=== PATIENT | female | born 1975 | race Caucasian/White ===

== ENCOUNTER 2017-10-28 15:43 | Emergency (ER) | payer BC ==
[2017-10-28] MEDS ORDERED: KETOROLAC 60 MG/2 ML VIAL IM STA (16:33)
--- NOTE | 2017-10-28 17:19 | XR ---
EXAMINATION TYPE: XR pelvis AP view DATE OF EXAM: 10/28/2017 COMPARISON: NONE HISTORY: None TECHNIQUE: Single view FINDINGS: Pelvic ring is intact. Proximal femurs and hip joints are intact. Sacroiliac joints appear normal. IMPRESSION: Negative pelvis x-ray exam.
--- NOTE | 2017-10-28 17:21 | XR ---
EXAMINATION TYPE: XR lumbosacral spine min 4V DATE OF EXAM: 10/28/2017 COMPARISON: NONE HISTORY: Leg pain and back pain TECHNIQUE: 5 views FINDINGS: The vertebra have fairly normal alignment. There is narrowing of L4-5 L5-S1 disc spaces wit h mild spurring. Posterior elements are intact. There is no compression fracture. Sacroiliac joints a re normal. There is mild narrowing of L2-3 disc space with spurring IMPRESSION: Spondylotic changes. No fracture seen.
--- NOTE | 2017-10-28 18:23 | ED ---
Lower Extremity Injury HPI - General Chief Complaint: Extremity Injury, Lower Stated Complaint: Leg Pain Time Seen by Provider: 10/28/17 16:13 Source: patient, RN notes reviewed Mode of arrival: ambulatory Limitations: no limitations - History of Present Illness Initial Comments: This is a 42-year-old female who states she has had left-sided hip pain for quite a while she states goes through her thigh she states she fell about one half weeks ago states the pain is 8/10 so a burning in nature no deficits however no trouble with urination or bowel movements. She was started on some oral steroids she'll briefly but she ran out of the medication. She has any fevers chills or other symptoms no prior history of sciatica or low back problems. - Related Data Home Medications Medication Instructions Recorded Confirmed ARIPiprazole [Abilify] 20 mg PO HS 10/28/17 10/28/17 Benztropine Mesylate [Cogentin] 0.5 mg PO BID 10/28/17 10/28/17 FLUoxetine HCL [PROzac] 20 mg PO HS 10/28/17 10/28/17 Prozac(Unknown) 1 cap PO HS 10/28/17 10/28/17 buPROPion [Wellbutrin] 100 mg PO BID 10/28/17 10/28/17 Previous Rx's Medication Instructions Recorded Cyclobenzaprine [Flexeril] 10 mg PO TID #14 tab 10/28/17 Ibuprofen 800 mg PO Q6HR PRN #20 tablet 10/28/17 predniSONE 20 mg PO BID #10 tab 10/28/17 Allergies Allergy/AdvReac Type Severity Reaction Status Date / Time No Known Allergies Allergy Verified 10/28/17 16:23 Review of Systems ROS Statement: Those systems with pertinent positive or pertinent negative responses have been documented in the HPI. ROS Other: All systems not noted in ROS Statement are negative. Past Medical History Past Medical History: GERD/Reflux History of Any Multi-Drug Resistant Organisms: MRSA Date of last positivie culture/infection: 2016 Past Surgical History: Cholecystectomy Past Psychological History: Bipolar, Schizoaffective Disorder Smoking Status: Former smoker Past Alcohol Use History: Rare Past Drug Use History: None Reported General Exam - General Exam Comments Initial Comments: This is a well-developed well-nourished awake alert oriented 3 female she does demonstrate a morbid obesity habitus. Limitations: no limitations General appearance: alert, anxious Head exam: Present: atraumatic, normocephalic, normal inspection Eye exam: Present: normal appearance, PERRL, EOMI. Absent: scleral icterus, conjunctival injection, periorbital swelling ENT exam: Present: normal exam, mucous membranes moist Neck exam: Present: normal inspection. Absent: tenderness, meningismus, lymphadenopathy Respiratory exam: Present: normal lung sounds bilaterally. Absent: respiratory distress, wheezes, rales, rhonchi, stridor Cardiovascular Exam: Present: regular rate, normal rhythm, normal heart sounds. Absent: systolic murmur, diastolic murmur, rubs, gallop, clicks GI/Abdominal exam: Present: other (Obese abdomen) Extremities exam: Present: normal inspection, full ROM, normal capillary refill , other (Tenderness palpation over the left gluteus consistent with sciatica). Absent: tenderness, pedal edema, joint swelling, calf tenderness Back exam: Present: normal inspection, full ROM. Absent: tenderness, CVA tenderness (R), CVA tenderness (L), muscle spasm, vertebral tenderness Neurological exam: Present: alert, oriented X3, CN II-XII intact Psychiatric exam: Present: normal affect, normal mood Skin exam: Present: warm, dry, intact, normal color. Absent: rash Course Vital Signs 10/28/17 15:55 Temperature 98.3 F Pulse Rate 75 Respiratory 20 Rate Blood Pressure 139/90 O2 Sat by Pulse 98 Oximetry Medical Decision Making - Medical Decision Making Improvement in her pain after the Toradol shot. I did discuss the findings with her and did review the imaging no acute findings are seen. Patient be discharged on appropriate medication with follow-up with her doctor. - Radiology Data Radiology results: report reviewed (Some evidence of degenerative changes), image reviewed Disposition Clinical Impression: Sciatica of left side Disposition: HOME SELF-CARE Condition: Good Instructions: Sciatica (ED) Prescriptions: Cyclobenzaprine [Flexeril] 10 mg PO TID #14 tab Ibuprofen 800 mg PO Q6HR PRN #20 tablet PRN Reason: Pain predniSONE 20 mg PO BID #10 tab Is patient prescribed a controlled substance at d/c from ED?: No Referrals: Daphne Bustamante, [Primary Care Provider] - 1-2 days
[2017-10-28 18:55] VITALS: BP 134/87; PULSE 76; RESP 18; TEMP 97.8
== END 2017-10-28 18:55 | disposition home or self-care (01) ==
LOC: EC 15:43
DX: M47.27 Other spondylosis with radiculopathy, lumbosacral region (principal); E66.01 Morbid (severe) obesity due to excess calories; F31.9 Bipolar disorder, unspecified; Z87.891 Personal history of nicotine dependence; Z79.899 Other long term (current) drug therapy; Z86.14 Personal history of Methicillin resistant Staphylococcus aureus infection; Z68.43 Body mass index [BMI] 50.0-59.9, adult
CPT/HCPCS: 96372; 99283; 72110; 72170; J1885

== ENCOUNTER 2018-09-18 06:59 | Emergency (ER) | payer BC ==
[2018-09-18 07:07] VITALS: BP 126/82; PULSE 88; RESP 20; TEMP 98.5
[2018-09-18] MEDS ORDERED: KETOROLAC 60 MG/2 ML VIAL IM STA (07:17)
--- NOTE | 2018-09-18 07:18 | ED ---
Back Pain HPI - General Chief Complaint: Back Pain/Injury Stated Complaint: Back Pain Time Seen by Provider: 09/18/18 07:08 Source: patient, RN notes reviewed Limitations: no limitations - History of Present Illness Initial Comments: This a 43-year-old female presents emergency Department with chief complaint of low back pain. Patient states she's been sore for last couple days but states that she worsen with spasms in her low back driving to work today. She denies any bowel bladder incontinence or retention. Denies any abdominal pain. Patient only took Tylenol with some relief of the pain. Patient states that she cannot go to work today. Patient has no complaint abdominal pain including nausea vomiting diarrhea constipation no paresthesias of lower extremity no w eakness no difficulty ambulate in pain is better at rest. - Related Data Home Medications Medication Instructions Recorded Confirmed ARIPiprazole [Abilify] 20 mg PO HS 10/28/17 10/28/17 Benztropine Mesylate [Cogentin] 0.5 mg PO BID 10/28/17 10/28/17 FLUoxetine HCL [PROzac] 20 mg PO HS 10/28/17 10/28/17 buPROPion [Wellbutrin] 100 mg PO BID 10/28/17 10/28/17 Previous Rx's Medication Instructions Recorded Cyclobenzaprine [Flexeril] 10 mg PO TID #14 tab 10/28/17 Ibuprofen 800 mg PO Q6HR PRN #20 tablet 10/28/17 predniSONE 20 mg PO BID #10 tab 10/28/17 Cyclobenzaprine [Flexeril] 10 mg PO TID PRN #15 tab 09/18/18 Ibuprofen [Motrin] 600 mg PO Q8HR PRN #30 tab 09/18/18 Allergies Allergy/AdvReac Type Severity Reaction Status Date / Time No Known Allergies Allergy Verified 09/18/18 07:07 Review of Systems ROS Statement: Those systems with pertinent positive or pertinent negative responses have been documented in the HPI. ROS Other: All systems not noted in ROS Statement are negative. Past Medical History Past Medical History: GERD/Reflux History of Any Multi-Drug Resistant Organisms: MRSA Date of last positivie culture/infection: 2016 MDRO Source:: groin Past Surgical History: Cholecystectomy Past Psychological History: Bipolar, Schizoaffective Disorder Smoking Status: Former smoker Past Alcohol Use History: Rare Past Drug Use History: None Reported General Exam Limitations: no limitations General appearance: alert, in no apparent distress Head exam: Present: atraumatic, normocephalic, normal inspection Neck exam: Present: normal inspection, full ROM. Absent: tenderness, meningismus, lymphadenopathy Respiratory exam: Present: normal lung sounds bilaterally. Absent: respiratory distress, wheezes, rales, rhonchi, stridor Cardiovascular Exam: Present: regular rate, normal rhythm, normal heart sounds. Absent: systolic murmur, diastolic murmur, rubs, gallop, clicks GI/Abdominal exam: Present: soft, normal bowel sounds. Absent: distended, tenderness, guarding, rebound, rigid Extremities exam: Present: other (Lower extremity strength equal bilaterally, neurovascular intact equal pedal pulses) Back exam: Present: full ROM, tenderness, paraspinal tenderness, other (Straight leg raise painful on the right). Absent: vertebral tenderness Neurological exam: Present: alert, oriented X3, CN II-XII intact, reflexes normal. Absent: motor sensory deficit Skin exam: Present: warm, dry, intact, normal color. Absent: rash Course Vital Signs 09/18/18 07:02 Temperature 98.5 F Pulse Rate 88 Respiratory 20 Rate Blood Pressure 126/82 O2 Sat by Pulse 97 Oximetry Medical Decision Making - Medical Decision Making 43-year-old female presented for low back pain. Patient has no red flag symptoms. Patient has typical lumbar strain. She'll be treated conservatively with ibuprofen and Flexeril. Patient was given Toradol return parameters were discussed. Disposition Clinical Impression: Strain of lumbar region Disposition: HOME SELF-CARE Condition: Stable Instructions (If sedation given, give patient instructions): Acute Low Back Pain (ED) Additional Instructions: Please return to the Emergency Department if symptoms worsen or any other concerns. Prescriptions: Cyclobenzaprine [Flexeril] 10 mg PO TID PRN #15 tab PRN Reason: Muscle Spasm Ibuprofen [Motrin] 600 mg PO Q8HR PRN #30 tab PRN Reason: Pain Is patient prescribed a controlled substance at d/c from ED?: No Referrals: None,Stated [Primary Care Provider] - 1-2 days Time of Disposition: 07:18
== END 2018-09-18 07:43 | disposition home or self-care (01) ==
LOC: EC 06:59
DX: S39.012A Strain of muscle, fascia and tendon of lower back, initial encounter (principal); F25.0 Schizoaffective disorder, bipolar type; Z79.899 Other long term (current) drug therapy; Z87.891 Personal history of nicotine dependence; X50.9XXA Other and unspecified overexertion or strenuous movements or postures, initial encounter
CPT/HCPCS: 99283; 96372; J1885

== ENCOUNTER → 2018-10-26 | Outpatient (CLI) | payer BC ==
--- NOTE | 2018-10-27 13:55 | MM ---
Reason for exam: screening (asymptomatic). History: Patient is nulliparous. Family history of breast cancer in paternal grandmother. Physical Findings: A clinical breast exam by your physician is recommended on an annual basis and results should be correlated with mammographic findings. MG Screening Mammo w CAD Bilateral CC and MLO view(s) were taken. No prior studies available for comparison. There are scattered fibroglandular densities. No suspicious abnormality. ASSESSMENT: Negative, BI-RAD 1 RECOMMENDATION: Routine screening mammogram of both breasts in 1 year.
== END | disposition home or self-care (01) ==
LOC: RADMAMWWP 08:58
PROVIDERS: ATTEND Family Medicine
DX: Z12.31 Encounter for screening mammogram for malignant neoplasm of breast (principal)
CPT/HCPCS: 77067

== ENCOUNTER 2019-09-27 12:04 | Observation (INO) | payer BC, OTHER ==
[2019-09-27 13:01] LABS: Basophils % (A) 0 %; Eosinophils # (A) 0.1 k/uL (0-0.7); Eosinophils % (A) 2 %; HCT 35.8 % (34.0-46.0); HGB 11.5 gm/dL (11.4-16.0); Lymphocytes # (A) 0.3 k/uL (1.0-4.8); Lymphocytes % (A) 4 %; MCH 26.1 pg (25.0-35.0); MCHC 32.1 g/dL (31.0-37.0); MCV 81.5 fL (80.0-100.0); Mean Platelet Volume 6.8; Monocytes # (A) 0.1 k/uL (0-1.0); Monocytes % (A) 2 %; Neutrophils # (A) 6.2 k/uL (1.3-7.7); Neutrophils % (A) 92 %; Platelet Count 251 k/uL (150-450); RDW 14.8 % (11.5-15.5); WBC 6.8 k/uL (3.8-10.6)
--- NOTE | 2019-09-27 13:15 | ED ---
Chest Pain HPI - General Chief Complaint: Chest Pain Stated Complaint: chest pain Time Seen by Provider: 09/27/19 12:13 Source: patient, RN notes reviewed, old records reviewed Mode of arrival: ambulatory Limitations: no limitations - History of Present Illness Initial Comments: This is a 44-year-old female DF for evaluation patient Dese for evaluation regards to chest pain. Patient is having chest pain shortness of breath like she has pneumonia. 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 Patient has also felt some chills and fevers for a few days. No recent travel history. Patient has no significant medical history she has pneumonia before this does feel similar to that MD Complaint: chest pain, other (Tightness while breathing) -: days(s) Onset: during rest, during exertion Pain Location: substernal, left chest Pain Radiation: none Severity: mild Quality: tightness Consistency: constant Improves With: nothing Worsens With: nothing Context: recent illness Anginal Symptoms: dyspnea Other Symptoms: cough Treatments Prior to Arrival: none - Related Data Home Medications Medication Instructions Recorded Confirmed ARIPiprazole [Abilify] 20 mg PO HS 10/28/17 09/27/19 Benztropine Mesylate [Cogentin] 0.5 mg PO HS 10/28/17 09/27/19 FLUoxetine HCL [PROzac] 20 mg PO HS 10/28/17 09/27/19 Omeprazole [PriLOSEC] 20 mg PO DAILY 09/18/18 09/27/19 Ergocalciferol (Vitamin D2) 50,000 unit PO MO 09/27/19 09/27/19 [Drisdol] buPROPion XL [Wellbutrin Xl] 300 mg PO DAILY 09/27/19 09/27/19 Allergies Allergy/AdvReac Type Severity Reaction Status Date / Time No Known Allergies Allergy Verified 09/27/19 14:52 Review of Systems ROS Statement: Those systems with pertinent positive or pertinent negative responses have been documented in the HPI. ROS Other: All systems not noted in ROS Statement are negative. EKG Findings - EKG Comments: EKG Findings:: EKG is sinus rhythm 91, WI 170 QRS 84 QTc 462 Past Medical History Past Medical History: GERD/Reflux, Pneumonia History of Any Multi-Drug Resistant Organisms: MRSA Date of last positivie culture/infection: 2017 MDRO Source:: groin Past Surgical History: Cholecystectomy Past Psychological History: Bipolar, Schizoaffective Disorder Smoking Status: Former smoker Past Alcohol Use History: Occasional, Rare Past Drug Use History: None Reported General Exam Limitations: no limitations General appearance: alert, in no apparent distress Head exam: Present: atraumatic, normocephalic, normal inspection Eye exam: Present: normal appearance, PERRL, EOMI. Absent: scleral icterus, conjunctival injection, periorbital swelling ENT exam: Present: normal exam, mucous membranes moist Neck exam: Present: normal inspection. Absent: tenderness, meningismus, lymphadenopathy Respiratory exam: Present: normal lung sounds bilaterally. Absent: respiratory distress, wheezes, rales, rhonchi, stridor Cardiovascular Exam: Present: regular rate, normal rhythm, normal heart sounds. Absent: systolic murmur, diastolic murmur, rubs, gallop, clicks GI/Abdominal exam: Present: soft, normal bowel sounds. Absent: distended, tenderness, guarding, rebound, rigid Extremities exam: Present: normal inspection, full ROM, normal capillary refill. Absent: tenderness, pedal edema, joint swelling, calf tenderness Back exam: Present: normal inspection Neurological exam: Present: alert, oriented X3, CN II-XII intact Psychiatric exam: Present: normal affect, normal mood Skin exam: Present: warm, dry, intact, normal color. Absent: rash Course Vital Signs 09/27/19 09/27/19 09/27/19 12:06 12:36 12:41 Temperature 98.4 F Pulse Rate 68 87 Pulse Rate [ 90 Pulse Oximetery ] Respiratory 18 20 20 Rate Blood Pressure 132/80 131/77 O2 Sat by Pulse 98 98 Oximetry 09/27/19 09/27/19 13:00 14:00 Temperature Pulse Rate 86 86 Pulse Rate [ Pulse Oximetery ] Respiratory 27 H 22 Rate Blood Pressure 131/77 141/74 O2 Sat by Pulse 100 99 Oximetry - Reevaluation(s) Reevaluation #1: 09/27/19 15:30 Medical records reviewed Reevaluation #2: 09/27/19 15:30 Patient informed of symptoms and questions are answered - Consultations Consultation #1: Spoke with PMH were agreed to admit Chest Pain MDM - MDM 44 female DF for evaluation patient is evaluation of shortness of breath and pneumonia patient does appear to have pneumonia, patient will be admitted rule out covert and treatment for pneumonia Disposition Clinical Impression: Chest pain, Community acquired bacterial pneumonia Narrative: roCOVID Disposition: ADMITTED IP TO THIS HOSP Condition: Good Is patient prescribed a controlled substance at d/c from ED?: No Referrals: Scarlet Sun MD [Primary Care Provider] - 1-2 days
--- NOTE | 2019-09-27 13:16 | XR ---
EXAMINATION TYPE: XR chest 2V DATE OF EXAM: 09/27/2019 COMPARISON: NONE HISTORY: Chest pain TECHNIQUE: Frontal and lateral views of the chest are obtained. FINDINGS: Question some retrocardiac increased attenuation. There is no pleural effusion or pneumotho rax seen. The cardiac silhouette size is within normal limits. The osseous structures are intact. IMPRESSION: Difficult to exclude left lower lobe pneumonia, correlate.
[2019-09-27 13:24] LABS: ALT 24 U/L (4-34); AST 47 U/L (14-36); African American GFR (CKD) >90 (>60 ml/min/1.73 sqM); Albumin 3.4 g/dL (3.5-5.0); Alkaline Phosphatase 113 U/L (38-126); Anion Gap 7 mmol/L; Blood Urea Nitrogen 11 mg/dL (7-17); Calcium 8.2 mg/dL (8.4-10.2); Carbon Dioxide 21 mmol/L (22-30); Chloride 108 mmol/L (98-107); Creatine Kinase 49 U/L (30-135); Glucose 102 mg/dL (74-99); Magnesium 1.9 mg/dL (1.6-2.3); Non-African American GFR(CKD) >90 (>60 ml/min/1.73 sqM); Potassium 3.8 mmol/L (3.5-5.1); Sodium 136 mmol/L (137-145); Total Bilirubin 0.9 mg/dL (0.2-1.3)
[2019-09-27 14:06] LABS: INR 0.9 (<1.2); Partial Thromboplastin Time 23.6 sec (22.0-30.0); Prothrombin Time 9.9 sec (9.0-12.0)
[2019-09-27 14:41] LABS: C Reactive Protein 45.2 mg/L (<10.0)
[2019-09-27] MEDS ORDERED: IPRATROPIUM-ALBUTEROL 3 ML NEB INHALATION PRN (15:28)
[2019-09-27] MEDS ORDERED: AZITHROMYCIN 500 MG in SODIUM CHLORIDE 0.9% 250 ML IVPB STA (15:28)
[2019-09-27] MEDS ORDERED: PNEUMONIA PROTOCOL UTILIZED 1 EACH MISC PO PRN (15:28)
[2019-09-27] MEDS: SODIUM CHLORIDE 0.9% 1,000 ML IV SCH (16:08)
[2019-09-27] MEDS ORDERED: ERGOCALCIFEROL 50,000 UNIT CAP PO SCH (19:00)
[2019-09-27] MEDS: HEPARIN SODIUM,PORCINE 5,000 UNIT/ML 1 ML VIAL SQ SCH (21:06)
[2019-09-27] MEDS: BENZTROPINE MESYLATE 0.5 MG TAB PO SCH (21:06)
[2019-09-27] MEDS: FLUoxetine HCL 20 MG CAP PO SCH (21:06)
[2019-09-27] MEDS: FAMOTIDINE 20 MG/2 ML VIAL IV SCH (21:06)
--- NOTE | 2019-09-27 21:19 | CT ---
EXAMINATION TYPE: CT angio chest DATE OF EXAM: 09/27/2019 COMPARISON: Chest x-ray earlier today HISTORY: elevated d-dimer CT DLP: 859.9 mGycm. Automated Exposure Control for Dose Reduction was Utilized. CONTRAST: CTA scan of the thorax is performed with IV Contrast, patient injected with 88cc mL of Isovue 370, pu lmonary embolism protocol. MIP Images are created on CT scanner and reviewed. FINDINGS: LUNGS: Low lung volumes redemonstrated. The lungs are grossly clear, there is no concerning parenchym al mass identified. Suboptimal study as patient unable to hold breath with respiratory motion artifac t degradation limiting evaluation for subcentimeter nodules. There is no pleural effusion or pneumoth orax seen bilaterally. The tracheobronchial tree is patent. MEDIASTINUM: There is suboptimal bolus with most dense contrast in the SVC and poor opacification of pulmonary arteries. No large saddle central pulmonary embolism, cannot exclude smaller segmental and subsegmental PE . Improved opacification of aorta without aneurysm or dissection. There are no greate r than 1 cm hilar or mediastinal lymph nodes. No cardiomegaly or pericardial effusion is seen. OTHER: Visualized liver is hypodense suggesting diffuse fatty infiltration. Cholecystectomy clips not ed. Mild to moderate multilevel anterior and lateral spurring in the thoracic spine. IMPRESSION: Suboptimal study without central saddle pulmonary embolism. Canal exclude smaller segment al and subsegmental PE. No suspicious acute pulmonary process.
[2019-09-28] MEDS: SODIUM CHLORIDE 0.9% 1,000 ML IV SCH ×2 (01:29→13:38)
[2019-09-28 05:18] LABS: Basophils % (A) 0 %; Eosinophils # (A) 0.1 k/uL (0-0.7); Eosinophils % (A) 3 %; HCT 33.6 % (34.0-46.0); HGB 10.7 gm/dL (11.4-16.0); Lymphocytes # (A) 0.7 k/uL (1.0-4.8); Lymphocytes % (A) 18 %; MCH 26.1 pg (25.0-35.0); MCHC 31.8 g/dL (31.0-37.0); Mean Platelet Volume 6.8; Monocytes # (A) 0.2 k/uL (0-1.0); Monocytes % (A) 5 %; Neutrophils # (A) 2.7 k/uL (1.3-7.7); Neutrophils % (A) 72 %; Platelet Count 230 k/uL (150-450); RDW 14.9 % (11.5-15.5); WBC 3.7 k/uL (3.8-10.6)
[2019-09-28 05:29] LABS: African American GFR (CKD) >90 (>60 ml/min/1.73 sqM); Anion Gap 5 mmol/L; Blood Urea Nitrogen 7 mg/dL (7-17); Calcium 7.9 mg/dL (8.4-10.2); Carbon Dioxide 25 mmol/L (22-30); Chloride 107 mmol/L (98-107); Glucose 91 mg/dL (74-99); Non-African American GFR(CKD) >90 (>60 ml/min/1.73 sqM); Potassium 3.4 mmol/L (3.5-5.1); Sodium 137 mmol/L (137-145)
--- NOTE | 2019-09-28 06:54 | XR ---
EXAMINATION TYPE: XR chest 2V DATE OF EXAM: 09/28/2019 COMPARISON: Prior chest x-ray 09/27/2019 HISTORY: Pneumonia TECHNIQUE: Frontal and lateral views of the chest are obtained. FINDINGS: Lung volumes somewhat low. Interstitium appears somewhat prominently. There is no focal air space opacity, pleural effusion, or pneumothorax seen. The cardiac silhouette size is within normal limits. The osseous structures are intact. IMPRESSION: Prominence of interstitium may be due to low lung volume.
[2019-09-28] MEDS: buPROPion XL 300 MG TAB.ER.24H PO SCH (07:55)
[2019-09-28] MEDS: FAMOTIDINE 20 MG/2 ML VIAL IV SCH (07:55)
[2019-09-28] MEDS: HEPARIN SODIUM,PORCINE 5,000 UNIT/ML 1 ML VIAL SQ SCH ×2 (07:56→20:50)
[2019-09-28 10:28] LABS: Appearance,Urine Cloudy (Clear); Bacteria,Urine Occasional /hpf; Bilirubin,Urine Negative (Negative); Blood,Urine Negative (Negative); Color,Urine Yellow; Glucose,Urine (UA) Negative (Negative); Ketones,Urine Negative (Negative); Leukocyte Esterase,Urine Trace (Negative); Nitrite,Urine Negative (Negative); Protein,Urine Negative (Negative); RBC,Urine 1 /hpf (0-5); Specific Gravity,Urine 1.018 (1.001-1.035); Squamous Epithelial Cell,Urine 2 /hpf (0-4); Urobilinogen,Urine <2.0 mg/dL (<2.0); WBC,Urine 1 /hpf (0-5)
--- NOTE | 2019-09-28 11:11 | CONS ---
CONSULTATION Mrs. Felix is a 44-year-old female with no documented history of obstructive coronary artery disease who presented with nausea and vomiting and diarrhea and has some chest discomfort. The discomfort was across the chest, associated with the nausea and vomiting. Because of that, came into the emergency room and subsequently admitted. Patient according to her in 2013, had an episode of chest discomfort. She was evaluated at [facility] and [place] and underwent cardiac catheterization and was found to have no evidence of obstructive coronary artery disease. She was told "that she had fluid around the lungs." Full details of that are not available to me. She is reasonably active physically, works in a prison, has no exertional chest pain. has no change in her breathing. No dizziness. No palpitation. No syncope. No PND, orthopnea or significant peripheral edema. Her coronary risk factors are negative for hypertension and hyperlipidemia. She is nondiabetic. MEDICATIONS: Include Abilify, Cogentin, Prozac, Drisdol, Prilosec and Wellbutrin. REVIEW OF SYSTEMS: RESPIRATORY SYSTEM: She has no recent wheezing. She has mild dyspnea and mild cough. GI SYSTEM: She has nausea and vomiting, and diarrhea but no bleeding. SYSTEM: No dysuria or hematuria. NERVOUS SYSTEM: No stroke or seizure. PHYSICAL EXAMINATION: A 44-year-old female, alert, oriented, in no apparent distress. Obese, blood pressure 101/70 with a heart rate in the 90s, afebrile. HEAD: Normocephalic. EYES: Sclerae nonicteric. NECK: Good upstroke, no bruit, no jugular venous distention. LUNGS: Clear to auscultation. HEART: Regular rate and rhythm. S1, S2. No S3. No S4. No murmur or rub. ABDOMEN: Soft, obese, nontender. Positive bowel sounds, no organomegaly. EXTREMITIES: No edema, intact distal pulses. LAB DATA: Revealed a white blood cell of 3.7, hemoglobin of 10.7, BUN and creatinine of 5 and 0.76. Procalcitonin 0.16, negative PCR coronavirus. Her C-reactive protein is 45.2. Her EKG revealed a sinus mechanism, normal axis and intervals with nonspecific ST-T wave changes. Her chest x-ray shows no clear evidence of infiltrate. She had a CT angiogram of the chest that was suboptimal and no evidence of central saddle pulmonary embolism. IMPRESSION: 1. Nausea and vomiting and diarrhea, appears to be related to gastroenteritis. The patient is afebrile. 2. Chest discomfort, atypical for ischemic heart disease probably noncardiac. 3. Obesity. RECOMMENDATION: 1. I will obtain echocardiogram with Doppler. I will try to obtain the workup that was done at [facility]. The patient has been evaluated by the Pulmonary Service. Depending on her progress, further recommendation will be made. 2. 3. Thank you for this consult. Will follow with you. MMODL / IJN: [id number] /
--- NOTE | 2019-09-28 11:12 | P.HPIM ---
History of Present Illness This is a pleasant 44 years old female with past medical history of GERD, sinusitis, pericarditis, bipolar and schizoaffective disorder which is stable and she follow up with nurse practitioner last an outpatient. She is a patient of Dr. Kristal Sun. She presents because of chest pain. Patient says for the last 2 nights she is having diarrhea and vomiting, she vomiting about 4-5 times per day, watery with no bloods, last bowel movement was yesterday which was a little bit better, also she vomited twice with no bloods. She has some periumbilical abdominal pain. However yesterday she developed chest pain last why she wanted to come to the hospital, she works in a [employer] and she wanted to make sure she does not have coronavirus infection. Her chest pain is mainly central, nonradiating, one-day duration started yesterday morning about its/10 in severity, down to 3/10, felt like pressure with no dyspnea or coughing. She denies smoking or illicit tracts, she drinks alcohol occasionally She denies hallucination, or signs symptoms of active depression. Vitals looks stable and patient is afebrile. Labs showing no lid BC of 3.7K, hemoglobin is 10.7, platelet is normal, lymphocytes 0.3 and 0.7 which are low. INR 0.9, d-dimer is slightly elevated at 0.76. BMP is unremarkable, ferritin is normal at 48.8, liver enzymes are within reference limits except mildly elevated AST at 47 fully troponin is negative less than 0.012, for calcitonin is slightly elevated at 0.16, magnesium 1.9, lactate dehydrogenase normals 519, lipase slightly elevated at 400, hCG in the serum is not detected, coronavirus is not detected In the emergency room patient was started on Zithromax and ceftriaxone normal sinus 100 mL per hour Review of Systems CONSTITUTIONAL: No fever, no malaise, no fatigue. HEENT: No recent visual problems or hearing problems. Denied any sore throat. CARDIOVASCULAR: No orthopnea, PND, no palpitations, no syncope. PULMONARY: No shortness of breath, no cough, no hemoptysis. GASTROINTESTINAL: No diarrhea, no nausea, no vomiting, no abdominal pain. Normoactive bowel sounds. NEUROLOGICAL: No headaches, no weakness, no numbness. HEMATOLOGICAL: Denies any bleeding or petechiae. GENITOURINARY: Denies any burning micturition, frequency, or urgency. MUSCULOSKELETAL/RHEUMATOLOGICAL: Denies any joint pain, swelling, or any muscle pain. ENDOCRINE: Denies any polyuria or polydipsia. Past Medical History Past Medical History: GERD/Reflux Additional Past Medical History / Comment(s): sinus infections, pericarditis 2016, low vitamin D, states no pneumonia History of Any Multi-Drug Resistant Organisms: MRSA Date of last positivie culture/infection: 2016 MDRO Source:: groin Past Surgical History: Cholecystectomy Past Psychological History: Bipolar, Schizoaffective Disorder Smoking Status: Former smoker Past Alcohol Use History: Occasional, Rare Past Drug Use History: None Reported - Past Family History Mother Family Medical History: No Reported History Father Family Medical History: Myocardial Infarction ([place]) Medications and Allergies Home Medications Medication Instructions Recorded Confirmed Type ARIPiprazole [Abilify] 20 mg PO HS 10/28/17 09/27/19 History Benztropine Mesylate [Cogentin] 0.5 mg PO HS 10/28/17 09/27/19 History FLUoxetine HCL [PROzac] 20 mg PO HS 10/28/17 09/27/19 History Omeprazole [PriLOSEC] 20 mg PO DAILY 09/18/18 09/27/19 History Ergocalciferol (Vitamin D2) 50,000 unit PO MO 09/27/19 09/27/19 History [Drisdol] buPROPion XL [Wellbutrin Xl] 300 mg PO DAILY 09/27/19 09/27/19 History Allergies Allergy/AdvReac Type Severity Reaction Status Date / Time No Known Allergies Allergy Verified 09/27/19 14:52 Physical Exam Vitals: Vital Signs Temp Pulse Pulse Resp BP BP Pulse Ox 09/28/19 09:09 77 18 09/28/19 08:43 98 F 77 18 99/66 96 09/28/19 05:00 98 F 71 16 107/71 99 09/27/19 23:00 98.9 F 91 16 105/66 98 09/27/19 17:00 97.4 F L 84 20 124/71 100 09/27/19 16:00 85 20 127/59 93 L 09/27/19 15:30 84 24 126/56 100 09/27/19 15:00 85 20 125/66 99 09/27/19 14:30 90 20 116/38 100 09/27/19 14:00 86 22 141/74 99 09/27/19 13:00 86 27 H 131/77 100 09/27/19 12:41 87 20 131/77 98 09/27/19 12:36 90 20 09/27/19 12:06 98.4 F 68 18 132/80 98 Intake and Output 09/27/19 09/28/19 09/28/19 22:59 06:59 14:59 Intake Total 500 450 Balance 500 450 Intake: IV 50 cefTRIAXone 1 gm In 50 Sodium Chloride 0.9% 50 ml @ 100 mls/hr IVPB ONCE STA Rx#:[id number] Oral 450 450 Other: Voiding Method Toilet Toilet Toilet # Voids 1 1 Weight 164.654 kg GENERAL: The patient is alert and oriented x3, not in any acute distress. Well developed, well nourished. HEENT: Pupils are round and equally reacting to light. EOMI. No scleral icterus. No conjunctival pallor. Normocephalic, atraumatic. No pharyngeal erythema. No thyromegaly. CARDIOVASCULAR: S1 and S2 present. No murmurs, rubs, or gallops. PULMONARY: Chest is clear to auscultation, no wheezing or crackles. ABDOMEN: Soft, nontender, nondistended, normoactive bowel sounds. No palpable organomegaly. MUSCULOSKELETAL: No joint swelling or deformity. EXTREMITIES: No cyanosis, clubbing, or pedal edema. NEUROLOGICAL: Gross neurological examination did not reveal any focal deficits. SKIN: No rashes. No petechiae Results CBC & Chem 7: 09/28/19 04:43 09/28/19 04:43 Labs: Abnormal Lab Results - Last 24 Hours (Table) 09/27/19 09/27/19 09/27/19 Range/Units 12:44 12:44 12:44 WBC (3.8-10.6) k/uL Hgb (11.4-16.0) gm/dL Hct (34.0-46.0) % Lymphocytes # 0.3 L (1.0-4.8) k/uL D-Dimer (<0.60) mg/L FEU Sodium 136 L (137-145) mmol/L Potassium (3.5-5.1) mmol/L Chloride 108 H (98-107) mmol/L Carbon Dioxide 21 L (22-30) mmol/L Glucose 102 H (74-99) mg/dL Calcium 8.2 L (8.4-10.2) mg/dL AST 47 H (14-36) U/L C-Reactive Protein 45.2 H (<10.0) mg/L Total Protein 6.0 L (6.3-8.2) g/dL Albumin 3.4 L (3.5-5.0) g/dL Lipase 400 H (23-300) U/L Procalcitonin (0.02-0.09) ng/mL 09/27/19 09/27/19 09/28/19 Range/Units 13:41 14:21 04:43 WBC 3.7 L (3.8-10.6) k/uL Hgb 10.7 L (11.4-16.0) gm/dL Hct 33.6 L (34.0-46.0) % Lymphocytes # 0.7 L (1.0-4.8) k/uL D-Dimer 0.76 H (<0.60) mg/L FEU Sodium (137-145) mmol/L Potassium (3.5-5.1) mmol/L Chloride (98-107) mmol/L Carbon Dioxide (22-30) mmol/L Glucose (74-99) mg/dL Calcium (8.4-10.2) mg/dL AST (14-36) U/L C-Reactive Protein (<10.0) mg/L Total Protein (6.3-8.2) g/dL Albumin (3.5-5.0) g/dL Lipase (23-300) U/L Procalcitonin 0.16 H (0.02-0.09) ng/mL 09/28/19 Range/Units 04:43 WBC (3.8-10.6) k/uL Hgb (11.4-16.0) gm/dL Hct (34.0-46.0) % Lymphocytes # (1.0-4.8) k/uL D-Dimer (<0.60) mg/L FEU Sodium (137-145) mmol/L Potassium 3.4 L (3.5-5.1) mmol/L Chloride (98-107) mmol/L Carbon Dioxide (22-30) mmol/L Glucose (74-99) mg/dL Calcium 7.9 L (8.4-10.2) mg/dL AST (14-36) U/L C-Reactive Protein (<10.0) mg/L Total Protein (6.3-8.2) g/dL Albumin (3.5-5.0) g/dL Lipase (23-300) U/L Procalcitonin (0.02-0.09) ng/mL Thrombosis Risk Factor Assmnt - Choose All That Apply Any of the Below Risk Factors Present?: Yes Each Factor Represents 1 point: Age 41-60 years, Obesity (BMI >25), Serious lung disease incl. pneumonia (< 1month) Thrombosis Risk Factor Assessment Total Risk Factor Score: 3 Thrombosis Risk Factor Assessment Level: Moderate Risk Assessment and Plan Assessment: Acute Gastroenteritis Chest pain, rule out cardiac causes Elevated d-dimer, CTA is negative for PE morbid obesity with BMI of 56 hypotension, blood pressure is low normal Patient was admitted with presumptive pneumonia however it felt less likely History of bipolar and schizoaffective disorder Plan: This is a pleasant 44 years old female who presents with chest pain andgastroenteritis-like symptomss, discontinue Zithromax, continue with Rocephin and add Flagyl. Continue with parenteral hydration continue with symptomatic treatment. Pain management. consult cardiology and pulmonary. Labs and medication were reviewed.. Continue same treatment. Continue with symptomatic treatment. Resume home medication. Monitor lytes and vitals. DVT and GI prophylaxis. Further recommendations of the clinical course of the patient DVT prophylaxis: Subcutaneous heparin GI Prophylaxis: Ppi Possible discharge in 24-48 hours if she keeps improvement
[2019-09-28] MEDS ORDERED: PANTOPRAZOLE 40 MG/10 ML VIAL IVP SCH (11:15)
--- NOTE | 2019-09-28 13:05 | ECHOF ---
Referral Reason: MEASUREMENTS -------- HEIGHT: 170.2 cm WEIGHT: 164.7 kg BP: 99/66 IVSd: 1.1 cm (0.6 - 1.1) LVIDd: 4.2 cm (3.9 - 5.3) LVPWd: 1.3 cm (0.6 - 1.1) IVSs: 1.7 cm LVIDs: 2.8 cm LVPWs: 1.7 cm LAESV Index (A-L): 29.91 ml/m Ao Diam: 3.0 cm (2.0 - 3.7) AV Cusp: 2.1 cm (1.5 - 2.6) MV EXCURSION: 15.293 mm (> 18.000) MV EF SLOPE: 84 mm/s (70 - 150) EPSS: 0.7 cm MV E Sergio: 1.08 m/s MV DecT: 185 ms MV A Sergio: 0.69 m/s MV E/A Ratio: 1.56 RAP: 5.00 mmHg RVSP: 35.40 mmHg FINDINGS -------- Sinus rhythm. This was a technically difficult study with suboptimal views. The left ventricular size is normal. There is mild concentric left ventricular hypertrophy. Overa ll left ventricular systolic function is normal with, an EF between 55 - 60 %. The diastolic fillin g pattern is normal for the age of the patient 8.15. The RV was not well visualized. LA is midly dilated 29-33ml/m2. The right atrium was not well visualized. xx ml of Lumason was utilized for enhancement of images. The aortic valve is trileaflet, and appears structurally normal. No aortic stenosis or regurgitation. The mitral valve is normal. No mitral regurgitation. Mild tricuspid regurgitation present. There is mild pulmonary hypertension. The right ventricular systolic pressure, as measured by Doppler, is 35.40mmHg. The pulmonic valve was not well visualized. There is no pulmonic regurgitation present. The aortic root size is normal. IVC Not well visulized. There is no pericardial effusion. CONCLUSIONS -------- 1. There is mild concentric left ventricular hypertrophy. 2. Overall left ventricular systolic function is normal with, an EF between 55 - 60 %. 3. The diastolic filling pattern is normal for the age of the patient 8.15 4. LA is midly dilated 29-33ml/m2. 5. xx ml of Lumason was utilized for enhancement of images. 6. The aortic valve is trileaflet, and appears structurally normal. No aortic stenosis or regurgitati on. 7. The mitral valve is normal. 8. Mild tricuspid regurgitation present. 9. There is mild pulmonary hypertension. 10. There is no pericardial effusion. PERSONAL BANKING REPRESENTATIVE: Josiane Cortes RDCS
[2019-09-28] MEDS: metroNIDAZOLE-NS PMX 500 MG in SALINE 1 100ML.BAG IVPB SCH ×2 (13:38→21:08)
--- NOTE | 2019-09-28 14:57 | P.CNPUL ---
History of Present Illness Consult date: 09/28/19 Chief complaint: Chest discomfort History of present illness: 44-year-old female patient, morbidly obese coming in with some gastrointestinal symptoms of nausea vomiting and diarrhea and issues until some chest discomfort. The patient gives a remote history of pericarditis. She also gives history of bipolar disorder/schizoaffective disorder. She apparently has been having recurrent diarrhea and nausea and emesis in the stool was essentially watery without any mucus or blood. No abdominal pain or distention. Most of her GI symptoms of recovered and the patient is back to her baseline. The chest discomfort is also recovered. No pleurisy. No angina. No cough or sputum production or chest tightness or wheezing for now. No previous history of DVT or pulmonary embolism. As part of her workup, the patient underwent a series of blood tests that showed a white cell count of 3.7 with a hemoglobin of 10.7. The reynoso virus nasal swab came back negative. Pro-calcitonin was slightly elevated at 0.16. The troponin was at 0.012. Coagulation profile was within normal limits. The CMP was essentially unremarkable. Based on that of a 10 and a calcitonin level, the patient was given empiric antibiotic coverage with IV Rocephin and Flagyl. The d-dimer was at 0.76. CT angiogram of the chest was done that showed of this on the pulmonary embolism. Some limited some segmental atelectatic changes seen in the lung bases bilaterally. Current pulse ox is 95- 96% on room air oxygen. Urinalysis is negative. EKG shows no significant changes such as ST segment elevation to indicate pericarditis. Review of Systems Constitutional: Reports daytime sleepiness, Reports fatigue, Reports weight gain Eyes: denies as per HPI, denies blurred vision, denies bulging eye, denies decreased vision, denies diplopia, denies discharge, denies dry eye, denies irritation, denies itching, denies pain, denies photophobia, denies loss of peripheral vision, denies loss of vision, denies tunnel vision/blind spots Ears: deny: decreased hearing, ear discharge, earache, tinnitus Ears, nose, mouth and throat: Reports as per HPI Breasts: absent: as per HPI, change in shape, gynecomastia, masses, nipple disc harge, pain, skin changes, swelling Cardiovascular: Reports decreased exercise tolerance, Reports dyspnea on exertion, Reports shortness of breath Respiratory: Reports as per HPI Gastrointestinal: Reports diarrhea, Reports nausea, Reports vomiting Genitourinary: Reports as per HPI Menstruation: Reports as per HPI Musculoskeletal: Reports as per HPI Musculoskeletal: absent: ankle pain, ankle stiffness, ankle swelling Integumentary: Reports as per HPI Neurological: Reports as per HPI Psychiatric: Reports as per HPI Endocrine: Reports as per HPI Hematologic/Lymphatic: Reports as per HPI Past Medical History Past Medical History: GERD/Reflux Additional Past Medical History / Comment(s): sinus infections, pericarditis 2016, low vitamin D, states no pneumonia History of Any Multi-Drug Resistant Organisms: MRSA Date of last positivie culture/infection: 2017 MDRO Source:: groin Past Surgical History: Cholecystectomy Past Psychological History: Bipolar, Schizoaffective Disorder Smoking Status: Former smoker Past Alcohol Use History: Occasional, Rare Past Drug Use History: None Reported - Past Family History Mother Family Medical History: No Reported History Father Family Medical History: Myocardial Infarction ([place]) Medications and Allergies Home Medications Medication Instructions Recorded Confirmed Type ARIPiprazole [Abilify] 20 mg PO HS 10/28/17 09/27/19 History Benztropine Mesylate [Cogentin] 0.5 mg PO HS 10/28/17 09/27/19 History FLUoxetine HCL [PROzac] 20 mg PO HS 10/28/17 09/27/19 History Omeprazole [PriLOSEC] 20 mg PO DAILY 09/18/18 09/27/19 History Ergocalciferol (Vitamin D2) 50,000 unit PO MO 09/27/19 09/27/19 History [Drisdol] buPROPion XL [Wellbutrin Xl] 300 mg PO DAILY 09/27/19 09/27/19 History Allergies Allergy/AdvReac Type Severity Reaction Status Date / Time No Known Allergies Allergy Verified 09/27/19 14:52 Physical Exam Vitals: Vital Signs Temp Pulse Pulse Resp BP BP Pulse Ox 09/28/19 09:09 77 18 09/28/19 08:43 98 F 77 18 99/66 96 09/28/19 05:00 98 F 71 16 107/71 99 09/27/19 23:00 98.9 F 91 16 105/66 98 09/27/19 17:00 97.4 F L 84 20 124/71 100 09/27/19 16:00 85 20 127/59 93 L 09/27/19 15:30 84 24 126/56 100 09/27/19 15:00 85 20 125/66 99 Intake and Output 09/27/19 09/28/19 09/28/19 22:59 06:59 14:59 Intake Total 500 450 Balance 500 450 Intake: IV 50 cefTRIAXone 1 gm In 50 Sodium Chloride 0.9% 50 ml @ 100 mls/hr IVPB ONCE STA Rx#:[id number] Oral 450 450 Other: Voiding Method Toilet Toilet Toilet # Voids 1 1 Weight 164.654 kg The patient is morbidly obese and she is calm and comfortable no acute distress.The patient appeared well nourished and normally developed. Vital signs as documented. Head exam is unremarkable. No scleral icterus or corneal arcus n oted. Neck is without jugular venous distension, thyromegaly, or carotid bruits. Carotid upstrokes are brisk bilaterally. Lungs are clear to auscultation and percussion. Cardiac exam reveals the PMI to be normally sized and situated. Rhythm is regular. First and second heart sounds normal. No murmurs, rubs or gallops. Abdominal exam reveals normal bowel sounds, no masses, no organomegaly and no aortic enlargement. Extremities are nonedematous and both femoral and pedal pulses are normal.Examination of the skin revealed no evidence of significant rashes, suspicious appearing nevi or other concerning lesions. Neurologically the patient is awake and alert and there is no focal neurological deficits. Results - Laboratory Findings CBC and BMP: 09/28/19 04:43 09/28/19 04:43 PT/INR, D-dimer PT 9.9 sec (9.0-12.0) 09/27/19 13:41 INR 0.9 (<1.2) 09/27/19 13:41 D-Dimer 0.76 mg/L FEU (<0.60) H 09/27/19 13:41 Abnormal lab findings: Abnormal Labs 09/27/19 09/27/19 09/27/19 12:44 12:44 12:44 WBC Hgb Hct Lymphocytes # 0.3 L D-Dimer Sodium 136 L Potassium Chloride 108 H Carbon Dioxide 21 L Glucose 102 H Calcium 8.2 L AST 47 H C-Reactive Protein 45.2 H Total Protein 6.0 L Albumin 3.4 L Lipase 400 H Procalcitonin Urine Appearance Ur Leukocyte Esterase Urine Bacteria 09/27/19 09/27/19 09/28/19 13:41 14:21 04:43 WBC 3.7 L Hgb 10.7 L Hct 33.6 L Lymphocytes # 0.7 L D-Dimer 0.76 H Sodium Potassium Chloride Carbon Dioxide Glucose Calcium AST C-Reactive Protein Total Protein Albumin Lipase Procalcitonin 0.16 H Urine Appearance Ur Leukocyte Esterase Urine Bacteria 09/28/19 09/28/19 04:43 10:10 WBC Hgb Hct Lymphocytes # D-Dimer Sodium Potassium 3.4 L Chloride Carbon Dioxide Glucose Calcium 7.9 L AST C-Reactive Protein Total Protein Albumin Lipase Procalcitonin Urine Appearance Cloudy H Ur Leukocyte Esterase Trace H Urine Bacteria Occasional H - Diagnostic Findings Chest x-ray: image reviewed CT scan - chest: image reviewed Assessment and Plan Plan: 1 nonspecific chest discomfort, workup is negative. Awaiting echocardiogram. CT angios of the chest was noted and was essentially within normal limits and the patient's oxygenation and lung exam are within normal 2 acute gastroenteritis, improved 3 morbid obesity BMI 56 4 bipolar disorder/schizoaffective disorder 5 previous history of pericarditis 6 chronic sinus disease 7 chronic acid reflux maintained on omeprazole an outpatient basis Plan No active pulmonary issues. We'll sign off the case and leave the rest of the management up to medicine. Workup thus far is negative and echocardiogram is to be checked to make sure there is no abnormalities contributing to her symptoms. GI symptoms or the improved. On a separate note, the patient may benefit from a sleep study on outpatient basis.
[2019-09-28] MEDS ORDERED: AZITHROMYCIN 500 MG TAB PO SCH (16:00)
[2019-09-28] MEDS: BENZTROPINE MESYLATE 0.5 MG TAB PO SCH (20:50)
[2019-09-28] MEDS: FLUoxetine HCL 20 MG CAP PO SCH (20:50)
[2019-09-28] MEDS: ONDANSETRON 4 MG/2 ML VIAL IVP PRN (21:59)
[2019-09-28] MEDS ORDERED: POTASSIUM CHLORIDE ER 20 MEQ TAB.ER PO STA (22:54)
[2019-09-29] MEDS: SODIUM CHLORIDE 0.9% 1,000 ML IV SCH (00:17)
[2019-09-29] MEDS: metroNIDAZOLE-NS PMX 500 MG in SALINE 1 100ML.BAG IVPB SCH (06:06)
[2019-09-29] MEDS ORDERED: PANTOPRAZOLE 40 MG TABLET PO SCH (07:30)
[2019-09-29 07:49] LABS: Basophils % (A) 0 %; Eosinophils # (A) 0.2 k/uL (0-0.7); Eosinophils % (A) 4 %; HCT 32.2 % (34.0-46.0); HGB 10.6 gm/dL (11.4-16.0); Hypochromasia Slight; Lymphocytes # (A) 0.8 k/uL (1.0-4.8); Lymphocytes % (A) 19 %; MCH 27.6 pg (25.0-35.0); MCV 83.5 fL (80.0-100.0); Mean Platelet Volume 6.5; Monocytes # (A) 0.2 k/uL (0-1.0); Monocytes % (A) 5 %; Neutrophils # (A) 2.9 k/uL (1.3-7.7); Neutrophils % (A) 70 %; Platelet Count 238 k/uL (150-450); RBC 3.86 m/uL (3.80-5.40); RDW 14.8 % (11.5-15.5); WBC 4.1 k/uL (3.8-10.6)
[2019-09-29 07:56] LABS: African American GFR (CKD) >90 (>60 ml/min/1.73 sqM); Anion Gap 4 mmol/L; Blood Urea Nitrogen 5 mg/dL (7-17); Calcium 7.9 mg/dL (8.4-10.2); Carbon Dioxide 27 mmol/L (22-30); Chloride 109 mmol/L (98-107); Glucose 105 mg/dL (74-99); Non-African American GFR(CKD) 90 (>60 ml/min/1.73 sqM); Potassium 4.3 mmol/L (3.5-5.1); Sodium 140 mmol/L (137-145)
[2019-09-29] MEDS: buPROPion XL 300 MG TAB.ER.24H PO SCH (08:55)
[2019-09-29] MEDS: HEPARIN SODIUM,PORCINE 5,000 UNIT/ML 1 ML VIAL SQ SCH (08:56)
[2019-09-29 09:04] VITALS: BP 163/80; PULSE 76; RESP 18; TEMP 98.1
--- NOTE | 2019-09-29 09:30 | PN ---
PROGRESS NOTE Mrs. Felix is a 44-year-old female who presented with nausea and vomiting, diarrhea and chest discomfort with the nausea and vomiting. She is feeling better today. Her nausea and vomiting are better. Her chest discomfort is better. She denies any dizziness, palpitation. She denies any nausea. I reviewed the results of her cardiac catheterization that was done at [facility] that revealed questionable intramural bridging with preserved systolic function. She had an echocardiogram yesterday, revealed no evidence of segmental wall motion abnormality and she continued to be on Abilify, Cogentin, Wellbutrin, Zofran, and Protonix. PHYSICAL EXAMINATION: Blood pressure 114/70 with a heart rate in the 70s. LUNGS: Clear. HEART: Regular rate and rhythm, S1, S2. No S3. No rub. ABDOMEN: Soft and mild tenderness right upper quadrant. Positive bowel sounds, no organomegaly. EXTREMITIES: No edema. IMPRESSION: 1. Chest discomfort atypical for ischemic heart disease. 2. Nausea and vomiting, diarrhea, probable gastroenteritis. Workup in progress. 3. Obesity. 4. History of bipolar disorder. RECOMMENDATION: From the cardiac standpoint she is stable, she should be able to be discharged home from the cardiac standpoint and follow up with her primary care physician. MMODL / IJN: [id number] /
--- NOTE | 2019-09-29 09:38 | P.DS ---
Providers Date of admission: 09/27/19 15:28 Attending physician: Jake Deluca Consults: 09/28/19 09:19 Consult Physician Urgent Consulting Provider: Jose Ramon Serrano Consult Reason/Comments: admitted for pna, no fever or leukocytosis, high DDimer ,CTA is suboptimal Do you want consulting provider notified?: Yes Consult Physician Urgent Consulting Provider: Joe Ortega Consult Reason/Comments: chest pain on admission Do you want consulting provider notified?: Yes Primary care physician: Scarlet Sun Hospital Course: Diagnoses: Acute Gastroenteritis Chest pain, rule out cardiac causes Elevated d-dimer, CTA is negative for PE morbid obesity with BMI of 56 hypotension, blood pressure is low normal Patient was admitted with presumptive pneumonia however it felt less likely History of bipolar and schizoaffective disorder Hospital course: This is a pleasant 44 years old female with past medical history of GERD, sinusitis, pericarditis, bipolar and schizoaffective disorder which is stable and she follow up with nurse practitioner last an outpatient. She is a patient of Dr. Kristal Sun. She presents because of chest pain. Patient says for the last 2 nights she is having diarrhea and vomiting, abdominal pain, which is improved with symptomatic treatment and hydration also patient Sushant short course of antibiotics and she will continue with short course of oral antibiotics upon discharge. She has no fever or leukocytosis on admission however her pro- calcitonin was elevated. Also terra cotta mason evaluated her for chest pain which is resolved now. Echocardiogram showed ejection fraction of 55-60% Patient felt better with symptomatic treatment and IV hydration, her low blood pressure improved upon discharge And it was 163/80 this morning This morning shows some nausea but no vomiting, no chest pain her primary medical abdominal pain is significantly improved but not completely resolved, she has little bowel movement and passing gases this morning but no diarrhea. Patient thinks she can go home and continue with oral symptomatic treatment and follow-up with her PCP within one week Patient was cleared for discharge by cardiology and pulmonary team Problems and management plan were discussed with the patient and he verbalized understanding and acceptance Patient was found stable and can be discharged home however he needs follow-up as an outpatient. Patient was instructed to follow up with PCP Dr. Dino Giraldo within one week and patient agrees. Also patient was asked to follow-up with Dr. Serrano in 1-2 weeks for sleep study as an outpatient and she agrees Gen: patient is a AAOx3, no distress CVS: S1-S2, RRR, no murmur Lungs: B/L CTA, no wheezing Abdomen: soft, no distention, no tenderness, positive bowel sounds Extremity: no leg edema or induration Time spent more than 35 minutes Patient Condition at Discharge: Good Plan - Discharge Summary New Discharge Prescriptions: No Action Benztropine Mesylate [Cogentin] 0.5 mg PO HS ARIPiprazole [Abilify] 20 mg PO HS FLUoxetine HCL [PROzac] 20 mg PO HS Omeprazole [PriLOSEC] 20 mg PO DAILY buPROPion XL [Wellbutrin Xl] 300 mg PO DAILY Ergocalciferol (Vitamin D2) [Drisdol] 50,000 unit PO MO Discharge Medication List ARIPiprazole [Abilify] 20 mg PO HS 10/28/17 [History] Benztropine Mesylate [Cogentin] 0.5 mg PO HS 10/28/17 [History] FLUoxetine HCL [PROzac] 20 mg PO HS 10/28/17 [History] Omeprazole [PriLOSEC] 20 mg PO DAILY 09/18/18 [History] Ergocalciferol (Vitamin D2) [Drisdol] 50,000 unit PO MO 09/27/19 [History] buPROPion XL [Wellbutrin Xl] 300 mg PO DAILY 09/27/19 [History] Follow up Appointment(s)/Referral(s): Scarlet Sun MD [Primary Care Provider] - 1-2 days Jose Ramon Serrano MD [STAFF PHYSICIAN] - 2 Weeks (needs sleep study)
[2019-09-29] MEDS: ONDANSETRON 4 MG/2 ML VIAL IVP PRN (09:58)
== END 2019-09-29 10:12 | disposition home or self-care (01) ==
LOC: EC 12:04 → 3NCARDOBS 15:28
PROVIDERS: ADMIT Hospitalist; ATTEND Hospitalist
DX: K52.9 Noninfective gastroenteritis and colitis, unspecified (principal); R07.89 Other chest pain; R79.1 Abnormal coagulation profile; E66.01 Morbid (severe) obesity due to excess calories; Z68.43 Body mass index [BMI] 50.0-59.9, adult; I95.9 Hypotension, unspecified; F31.9 Bipolar disorder, unspecified; F20.9 Schizophrenia, unspecified; K21.9 Gastro-esophageal reflux disease without esophagitis; E55.9 Vitamin D deficiency, unspecified; J98.11 Atelectasis; J32.9 Chronic sinusitis, unspecified; Z03.818 Encounter for observation for suspected exposure to other biological agents ruled out; Z87.01 Personal history of pneumonia (recurrent); Z79.899 Other long term (current) drug therapy; Z86.14 Personal history of Methicillin resistant Staphylococcus aureus infection; Z90.49 Acquired absence of other specified parts of digestive tract; Z87.891 Personal history of nicotine dependence; Z86.79 Personal history of other diseases of the circulatory system; Z82.49 Family history of ischemic heart disease and other diseases of the circulatory system
CPT/HCPCS: 96361; 96366 ×3; 96367 ×2; 96372 ×3; 96375 ×2; 96376 ×2; 96365; 99285; 36415; 93005; 93306; 85379; 83880; 80053; 80048 ×2; 82728; 82550; 83615; 83690; 83735; 84484; 85025 ×3; 85610; 85730; 86140; 81001; 84703; 84145; 71046 ×2; 71275; G0378 ×3; U0003; J1644 ×3; J2405 ×2; J0456; J0696 ×3; C9113; Q9950; Q9967

== ENCOUNTER → 2019-10-28 | Day surgery (SDC) | payer BC ==
[2019-10-26 15:27] VITALS: BMI 57.2
[~2019-10-28] MED LIST: LACTATED RINGERS 1,000 ML IV SCH; LIDOCAINE 1% (10MG/ML) FOR IV START INTRADERMA ONE; ONDANSETRON 4 MG/2 ML VIAL IVP PRN; PROPOFOL 10 MG/ML 20 ML VIAL IV ONE
[2019-10-28 08:40] VITALS: RESP 16; TEMP 98.4
--- NOTE | 2019-10-28 09:29 | P.PCN ---
Date of Procedure: 10/28/19 Description of Procedure: BRIEF HISTORY: Patient is a 44-year-old female with a long-standing history of reflux who presents for outpatient EGD for evaluation of GERD. Patient takes omeprazole 20 mg daily but does not feel this is helping anymore. She does report belching. PROCEDURE PERFORMED: Esophagogastroduodenoscopy with biopsy. PREOPERATIVE DIAGNOSIS: GERD. ESTIMATED BLOOD LOSS: Minimal. IV sedation per anesthesia. PROCEDURE: After informed consent was obtained, the patient was brought into the endoscopy unit. IV sedation was administered by Anesthesia under continuous monitoring. Initially the Olympus GIF-190 video endoscope was inserted into the mouth. Eso phagus intubated without any difficulty. It was gradually advanced into the stomach and duodenum and carefully examined. The bulb and the second part of the duodenum appeared normal, with biopsies taken. The scope at this time was withdrawn to the stomach, adequately insufflated with air, and upon careful examination, mucosa of the antrum, body, cardia and the fundus appeared normal, except for some mild scattered erythema in the antrum and body suggestive of mild gastritis with biopsies taken. Multiple gastric polyps were also seen likely representing fundic gland polyps with biopsies taken. The scope was then withdrawn into the esophagus. The GE junction was located at 38 cm from the incisors and biopsied.. The esophagus appeared normal. There were no erosions or ulcerations seen and the patient tolerated the procedure well. IMPRESSION: 1. Mild gastritis antrum body, biopsied. 2. Gastric polyps, biopsied. 3. Biopsies of the GE junction and duodenum. RECOMMENDATIONS: The findings of this examination were discussed with the patient. Okay to resume diet. Okay to resume medication. Await pathology from biopsies. Follow up in gastroenterology clinic as previously scheduled.
[2019-10-28 09:55] VITALS: BP 128/64; PULSE 80
== END ==
LOC: ORWHC2ENDO 08:24
PROVIDERS: ATTEND Internal Medicine
DX: K21.0 Gastro-esophageal reflux disease with esophagitis (principal); K29.50 Unspecified chronic gastritis without bleeding; K31.7 Polyp of stomach and duodenum; K08.89 Other specified disorders of teeth and supporting structures; F31.9 Bipolar disorder, unspecified; F25.9 Schizoaffective disorder, unspecified; E66.01 Morbid (severe) obesity due to excess calories; Z68.43 Body mass index [BMI] 50.0-59.9, adult; Z87.891 Personal history of nicotine dependence; Z79.899 Other long term (current) drug therapy; Z90.49 Acquired absence of other specified parts of digestive tract; Z86.79 Personal history of other diseases of the circulatory system; Z86.14 Personal history of Methicillin resistant Staphylococcus aureus infection
CPT/HCPCS: 81025; 88305; 43239; J2704

== ENCOUNTER → 2020-03-24 | Outpatient (CLI) | payer BC ==
--- NOTE | 2020-03-27 09:37 | MM ---
Reason for exam: screening (asymptomatic). Last mammogram was performed 1 year and 5 months ago. History: Patient is nulliparous. Family history of breast cancer in paternal grandmother. Physical Findings: A clinical breast exam by your physician is recommended on an annual basis and results should be correlated with mammographic findings. MG Screening Mammo w CAD Bilateral CC, MLO, and XCCL view(s) were taken. Prior study comparison: October 26, 2018, bilateral MG screening mammo w CAD. There are scattered fibroglandular densities. Focal asymmetry right middle depth upper outer quadrant. This finding is changed when compared with previous exams. ASSESSMENT: Incomplete: need additional imaging evaluation, BI-RAD 0 RECOMMENDATION: Special view mammogram of the right breast. If lesion persists on supplemental views, image directed ultrasound is recommended. [facility] will attempt to contact patient to return for supplemental views and ultrasound if indicated.
== END | disposition home or self-care (01) ==
LOC: RADMAMWWP 08:32
PROVIDERS: ATTEND Family Medicine
DX: Z12.31 Encounter for screening mammogram for malignant neoplasm of breast (principal)
CPT/HCPCS: 77067

== ENCOUNTER → 2020-04-06 | Outpatient (CLI) | payer BC ==
--- NOTE | 2020-04-07 10:24 | MM ---
Reason for exam: additional evaluation requested from abnormal screening. Last mammogram was performed less than 1 month ago. History: Patient is nulliparous. Family history of breast cancer in paternal grandmother. Physical Findings: Nurse did not find any significant physical abnormalities on exam. MG Work Up Mamm w CAD RT Spot compression CC, spot compression MLO, and ML view(s) were taken of the right breast. Prior study comparison: March 24, 2020, bilateral MG screening mammo w CAD. October 26, 2018, bilateral MG screening mammo w CAD. There are scattered fibroglandular densities. Developing asymmetry right upper outer quadrant, 10cm from nipple. Persistent on compression. These results were verbally communicated with the patient and result sheet given to the patient on 04/06/20. ASSESSMENT: Incomplete: need additional imaging evaluation, BI-RAD 0 RECOMMENDATION: Ultrasound of the right breast.
--- NOTE | 2020-04-07 10:39 | USB ---
Reason for exam: additional evaluation requested from abnormal screening. History: Patient is nulliparous. Family history of breast cancer in paternal grandmother. US Breast Workup Limited RT Right limited breast ultrasound including focal area of concern, retroareolar and axilla demonstrates no cystic or solid lesion seen. These results were verbally communicated with the patient and result sheet given to the patient on 04/06/20. ASSESSMENT: Negative, BI-RAD 1 RECOMMENDATION: Breast MRI. Follow-up diagnostic mammogram of the right breast in 3 months.
== END | disposition home or self-care (01) ==
LOC: RADMAMWWP 14:51
PROVIDERS: ATTEND Family Medicine
DX: R92.8 Other abnormal and inconclusive findings on diagnostic imaging of breast (principal)
CPT/HCPCS: 77065

== ENCOUNTER 2020-07-15 10:09 | Emergency (ER) | payer BC ==
[2020-07-15 10:12] VITALS: BP 180/81; PULSE 74; RESP 16; TEMP 98.2
[2020-07-15] MEDS ORDERED: KETOROLAC 15 MG/ML 1 ML VIAL IM STA (10:35)
--- NOTE | 2020-07-15 10:40 | ED ---
ENT HPI - General Chief complaint: Dental/Oral Stated complaint: Difficulty Swallowing Time Seen by Provider: 07/15/20 10:19 Source: patient Mode of arrival: ambulatory Limitations: no limitations - History of Present Illness Initial comments: Patient is a 45-year-old female presenting to the emergency Department with complaints of left lower dental pain for the last couple weeks. Patient states she's been having this pain for 2-3 weeks. She did have a follow-up with her dentist last week who started her on penicillin, she took this for 3 days and then was recently switched to clindamycin. She is complaining about continued pain as well as some swelling. She states she has a hard time eating secondary to the pain. She doesn't up appointment with her dentist in 4 days to have the teeth removed. She denies any fevers or chills, no nausea or vomiting, no chest pain or difficulty breathing. She has no further complaints at this time. - Related Data Home Medications Medication Instructions Recorded Confirmed ARIPiprazole [Abilify] 20 mg PO HS 10/28/17 10/28/19 Benztropine Mesylate [Cogentin] 0.5 mg PO HS 10/28/17 10/28/19 FLUoxetine HCL [PROzac] 20 mg PO HS 10/28/17 10/28/19 Ergocalciferol (Vitamin D2) 50,000 unit PO MO 09/27/19 10/28/19 [Drisdol (50,000 Iu)] buPROPion XL [Wellbutrin XL] 300 mg PO DAILY 09/27/19 10/28/19 Previous Rx's Medication Instructions Recorded Cefuroxime Axetil [Ceftin] 500 mg PO BID 3 Days #6 tab 09/29/19 HYDROcodone/APAP 5-325MG [[place] 1 tab PO Q6HR PRN 3 Days #12 tab 07/15/20 5-325] Allergies Allergy/AdvReac Type Severity Reaction Status Date / Time No Known Allergies Allergy Verified 07/15/20 10:09 Review of Systems ROS Statement: Those systems with pertinent positive or pertinent negative responses have been documented in the HPI. ROS Other: All systems not noted in ROS Statement are negative. Past Medical History Past Medical History: GERD/Reflux Additional Past Medical History / Comment(s): sinus infections, pericarditis 2016, low vitamin D, states no pneumonia, History of Any Multi-Drug Resistant Organisms: MRSA Date of last positivie culture/infection: 2016 MDRO Source:: groin Past Surgical History: Cholecystectomy Past Psychological History: Bipolar, Schizoaffective Disorder Smoking Status: Former smoker Past Alcohol Use History: Occasional Past Drug Use History: None Reported - Past Family History Mother Family Medical History: No Reported History Father Family Medical History: Myocardial Infarction ([place]) General Exam - General Exam Comments Initial Comments: GENERAL: Patient is well-developed and well-nourished. Patient is nontoxic and in no acute distress. HEAD: Atraumatic, normocephalic. EYES: Pupils equal round and reactive to light, extraocular movements intact, sclera anicteric, conjunctiva are normal. Eyelids were unremarkable. ENT: TMs normal, nares patent, oropharynx clear without exudates. Moist mucous membranes. She has numerous dental decay, poor dental hygiene. No visible abscess seen. No erythema of the gumline. HEENT with palpation of multiple teeth in the left lower side. He has no facial swelling, no swelling at the jawline or neck. NECK: Normal range of motion, supple without lymphadenopathy or JVD. LUNGS: Unlabored respirations. Breath sounds clear to auscultation bilaterally and equal. No wheezes rales or rhonchi. HEART: Regular rate and rhythm without murmurs, rubs or gallops. ABDOMEN: Soft, nontender, normoactive bowel sounds. No guarding, no rebound. No masses appreciated. : Deferred MUSCULOSKELETAL: Normal extremities with adequate strength and normal range of motion, no pitting or edema. No clubbing or cyanosis. NEUROLOGICAL: Patient is alert and oriented x 3. Motor and sensory are also intact. Cranial nerves II through XII grossly intact. Symmetrical smile. Normal speech, normal gait. PSYCH: Normal mood, normal affect. SKIN: Warm, Dry, normal turgor, no rashes or lesions noted. Limitations: no limitations Course Vital Signs 07/15/20 10:10 Temperature 98.2 F Pulse Rate 74 Respiratory 16 Rate Blood Pressure 180/81 O2 Sat by Pulse 97 Oximetry Medical Decision Making - Medical Decision Making Patient is a 45-year-old female here for left lower dental pain for the last 2 weeks. She is already on clindamycin for the last few days. Her vital signs are stable 6, afebrile. She has no facial swelling, no erythema. No visible dental abscess seen. Or dental hygiene, multiple dental caries. She has a plan with her dentist in 3 days to have the teeth removed. Patient will be given a shot of Toradol today, I'll give her a small prescription for pain control at home. Patient is stable for discharge. Patient is in agreement with this plan of care. Return parameters were discussed with the patient and they verbalized understanding. Case discussed with Dr. Magaña. Disposition Clinical Impression: Dental caries, Toothache Disposition: HOME SELF-CARE Condition: Stable Instructions (If sedation given, give patient instructions): Toothache (ED) Additional Instructions: Please return to the Emergency Department if symptoms worsen or any other concerns. Continue with already prescribed antibiotics. Continue with ibuprofen as prescribed, may alternate with [place] for severe pain. Also apply ice to the jaw line for pain. Follow-up with your dentist. Prescriptions: HYDROcodone/APAP 5-325MG [[place] 5-325] 1 tab PO Q6HR PRN 3 Days #12 tab PRN Reason: Pain Is patient prescribed a controlled substance at d/c from ED?: Yes When asked, does pt state using other controlled substances?: No If prescribed controlled substance>3 days was MAPS reviewed?: Prescribed <3 Days If opioid is for acute pain is fill amount 7 days or less?: Yes If Rx opioid, was Start Talking consent form obtained?: Yes Referrals: Scarlet Sun MD [Primary Care Provider] - 1-2 days Time of Disposition: 10:39
== END 2020-07-15 11:09 | disposition home or self-care (01) ==
LOC: EC 10:09
DX: K02.9 Dental caries, unspecified (principal); F25.9 Schizoaffective disorder, unspecified; K21.9 Gastro-esophageal reflux disease without esophagitis; Z87.891 Personal history of nicotine dependence; Z82.49 Family history of ischemic heart disease and other diseases of the circulatory system
CPT/HCPCS: 99283; J1885

== ENCOUNTER → 2020-07-27 | Outpatient (CLI) | payer BC ==
--- NOTE | 2020-07-27 13:43 | MM ---
Reason for exam: follow-up at short interval from prior study. Last mammogram was performed 4 months ago. History: Patient is nulliparous. Family history of breast cancer in paternal grandmother. Physical Findings: Nurse did not find any significant physical abnormalities on exam. MG 3D Diag Mammo W/Cad RT CC, MLO, and XCCL view(s) were taken of the right breast. Prior study comparison: April 06, 2020, right breast MG work up mamm w CAD RT. March 24, 2020, bilateral MG screening mammo w CAD. There are scattered fibroglandular densities. Resolution increased density. These results were verbally communicated with the patient and result sheet given to the patient on 07/27/20. ASSESSMENT: Benign, BI-RAD 2 RECOMMENDATION: Return to routine screening mammogram schedule for both breasts. Back on schedule for March 2021.
== END | disposition home or self-care (01) ==
LOC: RADMAMWWP 12:37
PROVIDERS: ATTEND Family Medicine
DX: N64.89 Other specified disorders of breast (principal); Z80.3 Family history of malignant neoplasm of breast
CPT/HCPCS: 77061; 77065

== ENCOUNTER 2021-01-16 10:19 | Emergency (ER) | payer BC ==
[2021-01-16 10:27] VITALS: BP 153/80; PULSE 75; RESP 20; TEMP 97.9
[2021-01-16] MEDS ORDERED: ONDANSETRON ODT 4 MG TAB PO STA (10:39)
--- NOTE | 2021-01-16 11:12 | ED ---
General Adult HPI - General Chief complaint: Abdominal Pain Stated complaint: possible sinus infection Time Seen by Provider: 01/16/21 10:34 Source: patient, RN notes reviewed Mode of arrival: ambulatory Limitations: no limitations - History of Present Illness Initial comments: Patient is a 45 year old female that presents complaining of upper respiratory tract symptoms for the past 5 days. She notes that she's had cough congestion mild nausea. She notes that her stepdad recently discharged in hospital pneumonia. She notes she was concerned for Covid. She denied any other symptoms or complaints at this time. She was otherwise well-appearing. She denied chest pain headache vomiting diarrhea constipation fever fatigue chills. - Related Data Home Medications Medication Instructions Recorded Confirmed ARIPiprazole [Abilify] 20 mg PO HS 10/28/17 10/28/19 Benztropine Mesylate [Cogentin] 0.5 mg PO HS 10/28/17 10/28/19 FLUoxetine HCL [PROzac] 20 mg PO HS 10/28/17 10/28/19 Ergocalciferol (Vitamin D2) 50,000 unit PO MO 09/27/19 10/28/19 [Drisdol (50,000 Iu)] buPROPion XL [Wellbutrin XL] 300 mg PO DAILY 09/27/19 10/28/19 Previous Rx's Medication Instructions Recorded Cefuroxime Axetil [Ceftin] 500 mg PO BID 3 Days #6 tab 09/29/19 HYDROcodone/APAP 5-325MG [[place] 1 tab PO Q6HR PRN 3 Days #12 tab 07/15/20 5-325] Allergies Allergy/AdvReac Type Severity Reaction Status Date / Time No Known Allergies Allergy Verified 01/16/21 10:26 Review of Systems ROS Statement: Those systems with pertinent positive or pertinent negative responses have been documented in the HPI. ROS Other: All systems not noted in ROS Statement are negative. Past Medical History Past Medical History: GERD/Reflux Additional Past Medical History / Comment(s): sinus infections, pericarditis 2016, low vitamin D, states no pneumonia, History of Any Multi-Drug Resistant Organisms: MRSA Date of last positivie culture/infection: 2017 MDRO Source:: groin Past Surgical History: Cholecystectomy Past Psychological History: Bipolar, Schizoaffective Disorder Smoking Status: Former smoker Past Alcohol Use History: Occasional Past Drug Use History: None Reported - Past Family History Mother Family Medical History: No Reported History Father Family Medical History: Myocardial Infarction ([place]) General Exam Limitations: no limitations General appearance: alert, in no apparent distress, obese (Morbidly) Head exam: Present: atraumatic, normocephalic, normal inspection Eye exam: Present: normal appearance, PERRL, EOMI. Absent: scleral icterus, conjunctival injection, periorbital swelling ENT exam: Present: normal exam, mucous membranes moist Neck exam: Present: normal inspection Respiratory exam: Present: normal lung sounds bilaterally. Absent: respiratory distress, wheezes, rales, rhonchi, stridor Cardiovascular Exam: Present: regular rate, normal rhythm, normal heart sounds. Absent: systolic murmur, diastolic murmur, rubs, gallop, clicks GI/Abdominal exam: Present: soft, normal bowel sounds. Absent: distended, tenderness, guarding, rebound, rigid Neurological exam: Present: alert, oriented X3 Psychiatric exam: Present: normal affect, normal mood Skin exam: Present: warm, dry, intact, normal color. Absent: rash Course Vital Signs 01/16/21 10:24 Temperature 97.9 F Pulse Rate 75 Respiratory 20 Rate Blood Pressure 153/80 O2 Sat by Pulse 100 Oximetry Medical Decision Making - Medical Decision Making 45-year-old female complaining of upper respiratory tract symptoms for the past 5 days concern for possible Covid. Covid swab, chest x-ray, 4 mg of Zofran ordered. Patient does meet criteria for monoclonal antibodies if test is positive. She does wish to undergo monoclonal antibody is positive. Covid test negative. Chest x-ray shows no acute card up on her process. Patient is we will discharge home with continuing conservative management follow-up primary care. Case discussed with Dr. Osborne, patient can discharge home. - Lab Data Lab Results 01/16/21 Range/Units 10:48 Coronavirus (PCR) Not Detected (Not Detectd) Disposition Clinical Impression: Upper respiratory tract infection Disposition: HOME SELF-CARE Condition: Stable Instructions (If sedation given, give patient instructions): Upper Respiratory Infection (ED) Additional Instructions: Please return to the Emergency Department if symptoms worsen or any other concerns. Follow-up with primary care 1-2 days. Continue conservative management with Tylenol Motrin for pain. Increase oral fluids. Is patient prescribed a controlled substance at d/c from ED?: No Referrals: Scarlet Sun MD [Primary Care Provider] - 1-2 days Time of Disposition: 12:04
--- NOTE | 2021-01-16 11:47 | XR ---
EXAMINATION TYPE: XR chest 2V DATE OF EXAM: 01/16/2021 COMPARISON: Chest x-ray 09/28/2019 HISTORY: Cough TECHNIQUE: Frontal and lateral views of the chest are obtained. FINDINGS: There is no focal air space opacity, pleural effusion, or pneumothorax seen. The cardiac silhouette size is within normal limits. The osseous structures are intact. IMPRESSION: No acute cardiopulmonary process.
== END 2021-01-16 12:35 | disposition home or self-care (01) ==
LOC: EC 10:19
DX: J06.9 Acute upper respiratory infection, unspecified (principal); K21.9 Gastro-esophageal reflux disease without esophagitis; F31.9 Bipolar disorder, unspecified; F25.9 Schizoaffective disorder, unspecified; Z20.822 Contact with and (suspected) exposure to COVID-19; Z90.49 Acquired absence of other specified parts of digestive tract; Z87.891 Personal history of nicotine dependence
CPT/HCPCS: 71046; 87635; 99283

== ENCOUNTER 2021-02-09 11:07 | Emergency (ER) | payer BC ==
[2021-02-09 11:41] VITALS: RESP 18; TEMP 97.7
[2021-02-09] MEDS ORDERED: ASPIRIN 81 MG PO STA (12:32)
--- NOTE | 2021-02-09 12:47 | ED ---
General Adult HPI - General Chief complaint: Extremity Injury, Lower Stated complaint: swelling in both legs/feet/high BP Time Seen by Provider: 02/09/21 12:06 Source: patient, RN notes reviewed, old records reviewed Mode of arrival: ambulatory Limitations: no limitations - History of Present Illness Initial comments: Patient was evaluated when she was placed in a room. Patient is a 45-year-old female with past medical history remarkable for GERD, acid reflux, obesity, psychiatric illness who presents emergency Department complaining of a multiple day to one week history of worsening lower extremity and ankle swelling. Patient states she was sent from urgent care for further evaluation. Concerns include problems with heart or clots. Patient is no history of blood clots. Denies any chest pain but does endorse progressively mild worsening of shortness of breath on exertion. States she has increased the number below she sleeps on at night but attributes it to her acid reflux. Denies any paroxysmal nocturnal dyspnea. Endorses symmetrical bilateral lower extremity swelling isolated to the ankles. It is symmetric. She also endorses mild crampy leg pain that is intermittent. She currently does not have this. She is not on blood thinners. Denies any history of blood clots. Denies any abdominal pain, nausea, vomiting. Denies any lightheadedness, numbness. She has been walking more than sitting up in her legs more frequently at home and at work. She is working longer shifts at work lately and she attributes her current symptoms secondary to this.Patient denies any fevers, chills, rhinorrhea, sick contacts and she was vaccinated for COVID-19. - Related Data Home Medications Medication Instructions Recorded Confirmed ARIPiprazole [Abilify] 20 mg PO DAILY 10/28/17 02/09/21 Benztropine Mesylate [Cogentin] 0.5 mg PO DAILY 10/28/17 02/09/21 FLUoxetine HCL [PROzac] 40 mg PO DAILY 10/28/17 02/09/21 Pantoprazole [Protonix] 40 mg PO DAILY 02/09/21 02/09/21 [id number] Acid 1 cap PO DAILY 02/09/21 02/09/21 [-U Capsule (formulary)] buPROPion XL [Wellbutrin XL] 150 mg PO DAILY 02/09/21 02/09/21 Allergies Allergy/AdvReac Type Severity Reaction Status Date / Time No Known Allergies Allergy Verified 02/09/21 13:10 Review of Systems ROS Statement: Those systems with pertinent positive or pertinent negative responses have been documented in the HPI. Review of Systems: CONST: Denies fever EYES: Denies blurry vision ENT: Denies nasal congestion C/V: Denies Chest pain RESP: Endorses mild exertional shortness of breath GI: Denies abdominal pain : Denies dysuria SKIN: Denies rash. MSK: Denies joint pain. NEURO: Denies headache ROS Other: All systems not noted in ROS Statement are negative. Past Medical History Past Medical History: GERD/Reflux Additional Past Medical History / Comment(s): sinus infections, pericarditis 2016, low vitamin D, states no pneumonia, History of Any Multi-Drug Resistant Organisms: MRSA Date of last positivie culture/infection: 2017 MDRO Source:: groin Past Surgical History: Cholecystectomy Past Psychological History: Bipolar, Schizoaffective Disorder Smoking Status: Former smoker Past Alcohol Use History: Occasional Past Drug Use History: None Reported - Past Family History Mother Family Medical History: No Reported History Father Family Medical History: Myocardial Infarction ([place]) General Exam - General Exam Comments Initial Comments: General: Appears in no acute distress. HEAD: Normal with no signs of head trauma. EYES: PERRLA, EOMI, conjunctiva normal, no discharge. ENT: Hearing grossly intact, normal oropharynx. RESPIRATORY: Clear breath sounds bilaterally. No wheezes, rales, or rhonchi. C/V: Regular rate and rhythm. S1 and S2 auscultated. Symmetrical 1+ pitting edema to bilateral ankles. Peripheral pulses are 2+ intact throughout. ABD: Abd is soft, nontender, nondistended EXT: Normal range of motion, no obvious deformity SKIN: No rashes or lesions observed on exposed skin. NEURO: Alert and oriented 4. No focal deficits. Limitations: no limitations Course Vital Signs 02/09/21 02/09/21 02/09/21 11:38 12:49 14:00 Temperature 97.7 F Pulse Rate 68 69 66 Respiratory 18 18 18 Rate Blood Pressure 140/72 135/83 113/67 O2 Sat by Pulse 100 100 100 Oximetry 02/09/21 15:00 Temperature Pulse Rate 80 Respiratory 18 Rate Blood Pressure 115/62 O2 Sat by Pulse 100 Oximetry Medical Decision Making - Medical Decision Making Is to the patient's presentation and physical exam, I'm concerned for possible cardiogenic cause for her current symptoms including heart failure. I cannot rule out the possibility of DVT or PE. She has been having shortness of breath is accompanied with this lower extremity edema. While score for PE is low, and therefore we will obtain a d-dimer screening test. We will also obtain bilateral lower extremity duplex ultrasounds to evaluate for DVT. Cardiac workup including Troponin, BNP, chest x-ray will also be obtained as well as EKG. She'll be given an aspirin. Patient was in agreement this plan. She'll be connected to continuous cardiac monitoring will she is here in the department. EKG showed normal sinus rhythm with no signs of acute ischemia.Chest x-ray does show mild interstitial prominence that could be bronchitis versus chronic asthma versus pulmonary edema. Correlate clinically per radiology. Venous duplex showed no evidence of acute DVT in bilateral lower extremities. Laboratory studies are remarkable for a d-dimer within normal limits. Patient's troponin is negative. BNP is within normal limits. She is not . The remainder of her labs are unremarkable. On reevaluation, patient feels improved. We discussed results of laboratory studies and that she is likely expressing dependent edema. I recommended that she elevate her lower extremities. I would like her to follow up with her PCP. She was in agreement this plan. I instructed the patient to follow up with their PCP in the next 3 days. I explained that the patient should return to the emergency department if they experience any worsening symptoms. Strict return precautions were discussed with the patient. The patient expressed understanding of these instructions. I answered all questions that the patient had. The patient was discharged home in good condition with their prescriptions and follow up information. - Lab Data Result diagrams: 02/09/21 12:43 02/09/21 12:43 Lab Results 02/09/21 02/09/21 02/09/21 Range/Units 12:43 12:43 12:43 WBC 5.5 (3.8-10.6) k/uL RBC 4.26 (3.80-5.40) m/uL Hgb 12.2 (11.4-16.0) gm/dL Hct 36.3 (34.0-46.0) % MCV 85.2 (80.0-100.0) fL MCH 28.7 (25.0-35.0) pg MCHC 33.7 (31.0-37.0) g/dL RDW 13.8 (11.5-15.5) % Plt Count 300 (150-450) k/uL MPV 6.8 Neutrophils % 71 % Lymphocytes % 20 % Monocytes % 4 % Eosinophils % 3 % Basophils % 0 % Neutrophils # 3.9 (1.3-7.7) k/uL Lymphocytes # 1.1 (1.0-4.8) k/uL Monocytes # 0.2 (0-1.0) k/uL Eosinophils # 0.2 (0-0.7) k/uL Basophils # 0.0 (0-0.2) k/uL PT 10.1 (9.0-12.0) sec INR 0.9 (<1.2) APTT 24.4 (22.0-30.0) sec D-Dimer 0.37 (<0.60) mg/L FEU Sodium 138 (137-145) mmol/L Potassium 4.1 (3.5-5.1) mmol/L Chloride 106 (98-107) mmol/L Carbon Dioxide 28 (22-30) mmol/L Anion Gap 4 mmol/L BUN 13 (7-17) mg/dL Creatinine 0.85 (0.52-1.04) mg/dL Est GFR (CKD-EPI)AfAm >90 (>60 ml/min/1.73 sqM) Est GFR (CKD-EPI)NonAf 84 (>60 ml/min/1.73 sqM) Glucose 72 L (74-99) mg/dL Calcium 8.8 (8.4-10.2) mg/dL Magnesium 2.2 (1.6-2.3) mg/dL Total Bilirubin 0.3 (0.2-1.3) mg/dL AST 19 (14-36) U/L ALT 14 (4-34) U/L Alkaline Phosphatase 87 (38-126) U/L Troponin I (0.000-0.034) ng/mL NT-Pro-B Natriuret Pep pg/mL Total Protein 6.5 (6.3-8.2) g/dL Albumin 3.5 (3.5-5.0) g/dL HCG, Qual Not Detected 11/26/21 11/26/21 Range/Units 12:43 12:43 WBC (3.8-10.6) k/uL RBC (3.80-5.40) m/uL Hgb (11.4-16.0) gm/dL Hct (34.0-46.0) % MCV (80.0-100.0) fL MCH (25.0-35.0) pg MCHC (31.0-37.0) g/dL RDW (11.5-15.5) % Plt Count (150-450) k/uL MPV Neutrophils % % Lymphocytes % % Monocytes % % Eosinophils % % Basophils % % Neutrophils # (1.3-7.7) k/uL Lymphocytes # (1.0-4.8) k/uL Monocytes # (0-1.0) k/uL Eosinophils # (0-0.7) k/uL Basophils # (0-0.2) k/uL PT (9.0-12.0) sec INR (<1.2) APTT (22.0-30.0) sec D-Dimer (<0.60) mg/L FEU Sodium (137-145) mmol/L Potassium (3.5-5.1) mmol/L Chloride (98-107) mmol/L Carbon Dioxide (22-30) mmol/L Anion Gap mmol/L BUN (7-17) mg/dL Creatinine (0.52-1.04) mg/dL Est GFR (CKD-EPI)AfAm (>60 ml/min/1.73 sqM) Est GFR (CKD-EPI)NonAf (>60 ml/min/1.73 sqM) Glucose (74-99) mg/dL Calcium (8.4-10.2) mg/dL Magnesium (1.6-2.3) mg/dL Total Bilirubin (0.2-1.3) mg/dL AST (14-36) U/L ALT (4-34) U/L Alkaline Phosphatase (38-126) U/L Troponin I <0.012 (0.000-0.034) ng/mL NT-Pro-B Natriuret Pep 305 pg/mL Total Protein (6.3-8.2) g/dL Albumin (3.5-5.0) g/dL HCG, Qual - EKG Data -: EKG Interpreted by Me EKG Comments: 12-lead Electrocardiogram Interpretation Note EKG was reviewed and interpreted by myself. 12-lead ECG performed at 1240 is interpreted by me as revealing normal sinus rhythm at a rate of 64 beats per minute. Mio is normal. TX interval is 146 seconds, QRS duration is 82 ms, QTc is 427 ms.. There were no ST or T wave abnormalities to suggest myocardial ischemia or injury. R wave progression across the precordium was satisfactory. By my interpretation this EKG is non-diagnostic for acute ischemia. Disposition Clinical Impression: Dependent edema Disposition: HOME SELF-CARE Condition: Good Instructions (If sedation given, give patient instructions): Lymphedema (ED) Is patient prescribed a controlled substance at d/c from ED?: No Referrals: Scarlet Sun MD [Primary Care Provider] - 1-2 days
[2021-02-09 12:56] LABS: Basophils % (A) 0 %; Eosinophils # (A) 0.2 k/uL (0-0.7); Eosinophils % (A) 3 %; HCT 36.3 % (34.0-46.0); HGB 12.2 gm/dL (11.4-16.0); Lymphocytes # (A) 1.1 k/uL (1.0-4.8); Lymphocytes % (A) 20 %; MCH 28.7 pg (25.0-35.0); MCHC 33.7 g/dL (31.0-37.0); MCV 85.2 fL (80.0-100.0); Mean Platelet Volume 6.8; Monocytes # (A) 0.2 k/uL (0-1.0); Monocytes % (A) 4 %; Neutrophils # (A) 3.9 k/uL (1.3-7.7); Neutrophils % (A) 71 %; Platelet Count 300 k/uL (150-450); RBC 4.26 m/uL (3.80-5.40); RDW 13.8 % (11.5-15.5); WBC 5.5 k/uL (3.8-10.6)
[2021-02-09 13:11] LABS: ALT 14 U/L (4-34); AST 19 U/L (14-36); African American GFR (CKD) >90 (>60 ml/min/1.73 sqM); Albumin 3.5 g/dL (3.5-5.0); Alkaline Phosphatase 87 U/L (38-126); Anion Gap 4 mmol/L; Blood Urea Nitrogen 13 mg/dL (7-17); Calcium 8.8 mg/dL (8.4-10.2); Carbon Dioxide 28 mmol/L (22-30); Chloride 106 mmol/L (98-107); Glucose 72 mg/dL (74-99); Magnesium 2.2 mg/dL (1.6-2.3); Non-African American GFR(CKD) 84 (>60 ml/min/1.73 sqM); Potassium 4.1 mmol/L (3.5-5.1); Sodium 138 mmol/L (137-145); Total Bilirubin 0.3 mg/dL (0.2-1.3); Total Protein 6.5 g/dL (6.3-8.2)
[2021-02-09 13:12] LABS: HCG,Qualitative Serum Not Detected
--- NOTE | 2021-02-09 13:17 | XR ---
EXAMINATION TYPE: XR chest 2V DATE OF EXAM: 02/09/2021 COMPARISON: 01/16/2021 HISTORY: 45-year-old female with chest pain TECHNIQUE: PA and lateral views FINDINGS: Heart upper limits of normal in size. Mild interstitial prominence without consolidation or pleural e ffusion. IMPRESSION: Mild interstitial prominence could reflect bronchitis, chronic asthma, or mild pulmonary vascular con gestion. Clinically correlate.
[2021-02-09 13:29] LABS: INR 0.9 (<1.2); Partial Thromboplastin Time 24.4 sec (22.0-30.0); Prothrombin Time 10.1 sec (9.0-12.0)
--- NOTE | 2021-02-09 13:48 | US ---
EXAMINATION TYPE: US venous doppler duplex LE BI DATE OF EXAM: 02/09/2021 1:33 PM COMPARISON: NONE CLINICAL HISTORY: BL LE edema. Evaluate for dvt. SIDE PERFORMED: Bilateral TECHNIQUE: The lower extremity deep venous system is examined utilizing real time linear array sonog mary ann with graded compression, doppler sonography and color-flow sonography. VESSELS IMAGED: Common Femoral Vein Deep Femoral Vein Greater Saphenous Vein * Femoral Vein Popliteal Vein Small Saphenous Vein * Proximal Calf Veins (* superficial vessels) Right Leg: Negative for DVT Left Leg: Negative for DVT Grayscale, color doppler, spectral doppler imaging performed of the deep veins of the bilateral lower extremities. There is normal flow, compressibility, vascular waveforms. IMPRESSION: No ultrasound evidence for acute DVT in either lower extremity.
[2021-02-09 15:42] VITALS: BP 115/62; PULSE 80
== END 2021-02-09 15:42 | disposition home or self-care (01) ==
LOC: EC 11:07
DX: R60.0 Localized edema (principal); K21.9 Gastro-esophageal reflux disease without esophagitis; F31.9 Bipolar disorder, unspecified; F25.9 Schizoaffective disorder, unspecified; Z87.891 Personal history of nicotine dependence; Z79.899 Other long term (current) drug therapy
CPT/HCPCS: 36415; 71046; 80053; 83735; 83880; 84484; 84703; 85025; 85379; 85610; 85730; 93005; 93970; 99284

== ENCOUNTER 2021-03-16 12:54 | Emergency (ER) | payer BC ==
--- NOTE | 2021-03-16 15:11 | ED ---
General Adult HPI - General Stated complaint: Covid exposure/symptoms Source: RN notes reviewed - History of Present Illness Initial comments: 45 year old female presents to the emergency room for covid test. Patient states for the past 3 days she has not felt well. She states her coworkers have been tested positive for COVID-19 and are coming back positive. She has had nasal congestion and fatigue. No fevers. Patient is here to be tested for COVID-19. Patient is vaccinated for COVID-19. Patient has no other complaints at this time including shortness of breath, chest pain, abdominal pain, nausea or vomiting, headache, or visual changes. - Related Data Home Medications Medication Instructions Recorded Confirmed ARIPiprazole [Abilify] 20 mg PO DAILY 10/28/17 02/09/21 Benztropine Mesylate [Cogentin] 0.5 mg PO DAILY 10/28/17 02/09/21 FLUoxetine HCL [PROzac] 40 mg PO DAILY 10/28/17 02/09/21 Pantoprazole [Protonix] 40 mg PO DAILY 02/09/21 02/09/21 [id number] Acid 1 cap PO DAILY 02/09/21 02/09/21 [-U Capsule (formulary)] buPROPion XL [Wellbutrin XL] 150 mg PO DAILY 02/09/21 02/09/21 Allergies Allergy/AdvReac Type Severity Reaction Status Date / Time No Known Allergies Allergy Verified 03/16/21 15:11 Review of Systems ROS Statement: Those systems with pertinent positive or pertinent negative responses have been documented in the HPI. ROS Other: All systems not noted in ROS Statement are negative. Past Medical History Past Medical History: GERD/Reflux Additional Past Medical History / Comment(s): sinus infections, pericarditis 2016, low vitamin D, states no pneumonia, History of Any Multi-Drug Resistant Organisms: MRSA Date of last positivie culture/infection: 2017 MDRO Source:: groin Past Surgical History: Cholecystectomy Past Psychological History: Bipolar, Schizoaffective Disorder Smoking Status: Former smoker Past Alcohol Use History: Occasional Past Drug Use History: None Reported - Past Family History Mother Family Medical History: No Reported History Father Family Medical History: Myocardial Infarction ([place]) General Exam General appearance: alert, in no apparent distress Head exam: Present: atraumatic Eye exam: Present: normal appearance, PERRL, EOMI. Absent: scleral icterus, conjunctival injection ENT exam: Present: normal exam, mucous membranes moist Neck exam: Present: normal inspection, full ROM. Absent: tenderness Respiratory exam: Present: normal lung sounds bilaterally. Absent: respiratory distress, wheezes Cardiovascular Exam: Present: regular rate, normal rhythm Neurological exam: Present: alert Course Vital Signs 03/16/21 15:09 Temperature 98.8 F Pulse Rate 79 Respiratory 18 Rate Blood Pressure 133/62 O2 Sat by Pulse 99 Oximetry Medical Decision Making - Medical Decision Making Vitals are stable. Patient is well appearing. Patient has had symptoms for few days including upper respiratory symptoms. Lab test was negative today for COVID-19. Patient can be discharged home. Will follow up with primary care. - Lab Data Lab Results 03/16/21 Range/Units 15:13 Coronavirus (PCR) Not Detected (Not Detectd) Disposition Clinical Impression: Lab test negative for COVID-19 virus, Sinusitis Disposition: HOME SELF-CARE Condition: Good Instructions (If sedation given, give patient instructions): Upper Respiratory Infection (ED) Additional Instructions: Please follow-up with your doctor in one to 2 days. Return to the emergency room for any worsening symptoms. Is patient prescribed a controlled substance at d/c from ED?: No Referrals: Scarlet Sun MD [Primary Care Provider] - 1-2 days Time of Disposition: 15:45
[2021-03-16 15:57] VITALS: BP 128/78; PULSE 78; RESP 16; TEMP 98
== END 2021-03-16 15:56 | disposition home or self-care (01) ==
LOC: EC 12:54
DX: J32.9 Chronic sinusitis, unspecified (principal); Z20.828 Contact with and (suspected) exposure to other viral communicable diseases; K21.9 Gastro-esophageal reflux disease without esophagitis; F31.9 Bipolar disorder, unspecified; F25.9 Schizoaffective disorder, unspecified; Z87.891 Personal history of nicotine dependence; Z79.899 Other long term (current) drug therapy
CPT/HCPCS: 87635; 99283

== ENCOUNTER 2021-11-08 19:18 | Emergency (ER) | payer BC ==
[2021-11-08 20:26] VITALS: BP 164/86; PULSE 84; RESP 20; TEMP 98
--- NOTE | 2021-11-08 21:10 | XR ---
EXAMINATION: XR chest 2V DATE AND TIME: 11/08/2021 8:43 PM CLINICAL INDICATION: abdominal pain TECHNIQUE: Departmental protocol COMPARISON: None FINDINGS: The lungs are clear. The pleural spaces are negative. The cardiac silhouette is not enlarged. The remainder of the mediastinal silhouette is unremarkable. The skeletal structures and soft tissues are negative for acute findings. IMPRESSION: NO ACUTE PROCESS.
--- NOTE | 2021-11-08 21:11 | XR ---
EXAMINATION TYPE: XR KUB 2 views DATE OF EXAM: 11/08/2021 8:43 PM CLINICAL HISTORY: abd pain; leg edema TECHNIQUE: Single supine KUB image of the abdomen is obtained. COMPARISON: None. FINDINGS: Scattered gas is seen in non-distended small bowel loops. Gas and fecal material is seen in non-distended colon. There is no visceromegaly, pneumoperitoneum, or abnormal calcification apprecia gia. The lung bases are clear and the osseous structures are intact. IMPRESSION: No acute radiographic process.
--- NOTE | 2021-11-08 21:31 | US ---
EXAMINATION TYPE: US venous doppler duplex LE BI DATE OF EXAM: 11/08/2021 9:25 PM COMPARISON: 02/09/21 CLINICAL HISTORY: pain in legs, dr lewis. pain in legs, left ankle sprain. No hx of dvt SIDE PERFORMED: Bilateral TECHNIQUE: The lower extremity deep venous system is examined utilizing real time linear array sonog mary ann with graded compression, doppler sonography and color-flow sonography. VESSELS IMAGED: Common Femoral Vein Deep Femoral Vein Greater Saphenous Vein * Femoral Vein Popliteal Vein Small Saphenous Vein * Proximal Calf Veins (* superficial vessels) FINDINGS: Grayscale, color doppler, spectral doppler imaging performed of the deep veins of the lower extremities. There is normal flow, compressibility, vascular waveforms. IMPRESSION: NEGATIVE FOR DVT, BILATERAL LOWER EXTREMITIES.
[2021-11-08 22:11] LABS: Basophils % (A) 0 %; Eosinophils # (A) 0.2 k/uL (0-0.7); Eosinophils % (A) 3 %; HGB 12.6 gm/dL (11.4-16.0); Lymphocytes # (A) 1.1 k/uL (1.0-4.8); Lymphocytes % (A) 16 %; MCH 29.5 pg (25.0-35.0); MCHC 33.3 g/dL (31.0-37.0); MCV 88.8 fL (80.0-100.0); Mean Platelet Volume 6.7; Monocytes # (A) 0.2 k/uL (0-1.0); Monocytes % (A) 3 %; Neutrophils # (A) 5.1 k/uL (1.3-7.7); Neutrophils % (A) 76 %; Platelet Count 328 k/uL (150-450); RBC 4.28 m/uL (3.80-5.40); RDW 13.6 % (11.5-15.5); WBC 6.6 k/uL (3.8-10.6)
[2021-11-08 22:19] LABS: ALT 13 U/L (4-34); AST 19 U/L (14-36); African American GFR (CKD) >90 (>60 ml/min/1.73 sqM); Albumin 3.8 g/dL (3.5-5.0); Alkaline Phosphatase 86 U/L (38-126); Amylase <30 U/L (30-110); Anion Gap 10 mmol/L; Blood Urea Nitrogen 10 mg/dL (7-17); Carbon Dioxide 24 mmol/L (22-30); Chloride 102 mmol/L (98-107); Glucose 92 mg/dL (74-99); Lipase 26 U/L (23-300); Non-African American GFR(CKD) 84 (>60 ml/min/1.73 sqM); Potassium 4.6 mmol/L (3.5-5.1); Sodium 136 mmol/L (137-145); Total Bilirubin 0.3 mg/dL (0.2-1.3); Total Protein 6.5 g/dL (6.3-8.2)
--- NOTE | 2021-11-08 23:09 | ED ---
Abdominal Pain HPI - General Chief Complaint: Abdominal Pain Stated Complaint: L leg swelling Time Seen by Provider: 11/08/21 22:23 Source: patient Mode of arrival: ambulatory Limitations: no limitations - History of Present Illness Initial Comments: Patient is a 46-year-old female who presents to the emergency department from urgent care for rule out DVT. Patient states she has swelling in both of her legs that is a chronic issue for her. States she was in her emergency department a couple of days ago and was diagnosed with left ankle sprain. Sta jackson she has been wearing an Aircast over the left ankle and has noticed increased swelling in both her left and right lower leg. States she went to urgent care who squeezed her calf which cause tenderness. Patient was sent to the emergency department for rule out DVT. Denies history of DVT. Denies family history of DVT. Denies history of cancer and hormone use. States she has been walking on the ankle a couple of times a day. Denies chest pain. Reports mild shortness of breath. - Related Data Home Medications Medication Instructions Recorded Confirmed Benztropine Mesylate [Cogentin] 0.5 mg PO HS 10/28/17 11/08/21 FLUoxetine HCL [PROzac] 40 mg PO BID 10/28/17 11/08/21 Pantoprazole [Protonix] 40 mg PO DAILY 02/09/21 11/08/21 buPROPion XL [Wellbutrin XL] 150 mg PO DAILY 02/09/21 11/08/21 ARIPiprazole [Abilify] 15 mg PO DAILY 11/08/21 11/08/21 Acetaminophen Tab [Tylenol Tab] 1,000 mg PO Q6H PRN 11/08/21 11/08/21 Multivitamins, Thera [Multivitamin 1 tab PO DAILY 11/08/21 11/08/21 (formulary)] Previous Rx's Medication Instructions Recorded Naproxen [Naprosyn] 375 mg PO Q12HR PRN #20 tablet 11/07/21 Allergies Allergy/AdvReac Type Severity Reaction Status Date / Time No Known Allergies Allergy Verified 11/08/21 23:21 Review of Systems ROS Statement: Those systems with pertinent positive or pertinent negative responses have been documented in the HPI. ROS Other: All systems not noted in ROS Statement are negative. Past Medical History Past Medical History: GERD/Reflux Additional Past Medical History / Comment(s): sinus infections, pericarditis 2016, low vitamin D, states no pneumonia, History of Any Multi-Drug Resistant Organisms: MRSA Date of last positivie culture/infection: 2017 MDRO Source:: groin Past Surgical History: Cholecystectomy Past Psychological History: Bipolar, Schizoaffective Disorder Smoking Status: Former smoker Past Alcohol Use History: Occasional Past Drug Use History: None Reported - Past Family History Mother Family Medical History: No Reported History Father Family Medical History: Myocardial Infarction ([place]) General Exam Limitations: no limitations General appearance: alert, in no apparent distress Head exam: Present: atraumatic, normocephalic, normal inspection Respiratory exam: Present: normal lung sounds bilaterally. Absent: respiratory distress, wheezes, rales, rhonchi, stridor Cardiovascular Exam: Present: regular rate, normal rhythm, normal heart sounds. Absent: systolic murmur, diastolic murmur, rubs, gallop, clicks Extremities exam: Present: normal capillary refill, pedal edema (2+), calf tenderness (bilateral ) Neurological exam: Present: alert, oriented X3, CN II-XII intact Psychiatric exam: Present: normal affect, normal mood Skin exam: Present: warm, dry, intact, normal color. Absent: rash Course Vital Signs 11/08/21 20:23 Temperature 98.0 F Pulse Rate 84 Respiratory 20 Rate Blood Pressure 164/86 O2 Sat by Pulse 100 Oximetry Medical Decision Making - Medical Decision Making This is a 46-year-old female presents with increased leg swelling. Thorough history and examination were performed. Patient is well-appearing and in no apparent distress. 2+ pitting edema appreciated. Positive Homans sign bila terally. Laboratory studies obtained. Troponin and d-dimer within normal limits. Chest x-ray is negative for acute process. Ultrasound with Doppler is negative for DVT in both the left and right leg. Patient to follow-up with primary care provider. Dr. Gaona is my attending. - Lab Data Result diagrams: 11/08/21 21:56 11/08/21 21:56 Lab Results 11/08/21 11/08/21 11/08/21 Range/Units 21:56 21:56 21:56 WBC 6.6 (3.8-10.6) k/uL RBC 4.28 (3.80-5.40) m/uL Hgb 12.6 (11.4-16.0) gm/dL Hct 38.0 (34.0-46.0) % MCV 88.8 (80.0-100.0) fL MCH 29.5 (25.0-35.0) pg MCHC 33.3 (31.0-37.0) g/dL RDW 13.6 (11.5-15.5) % Plt Count 328 (150-450) k/uL MPV 6.7 Neutrophils % 76 % Lymphocytes % 16 % Monocytes % 3 % Eosinophils % 3 % Basophils % 0 % Neutrophils # 5.1 (1.3-7.7) k/uL Lymphocytes # 1.1 (1.0-4.8) k/uL Monocytes # 0.2 (0-1.0) k/uL Eosinophils # 0.2 (0-0.7) k/uL Basophils # 0.0 (0-0.2) k/uL D-Dimer (<0.60) mg/L FEU Sodium 136 L (137-145) mmol/L Potassium 4.6 (3.5-5.1) mmol/L Chloride 102 (98-107) mmol/L Carbon Dioxide 24 (22-30) mmol/L Anion Gap 10 mmol/L BUN 10 (7-17) mg/dL Creatinine 0.84 (0.52-1.04) mg/dL Est GFR (CKD-EPI)AfAm >90 (>60 ml/min/1.73 sqM) Est GFR (CKD-EPI)NonAf 84 (>60 ml/min/1.73 sqM) Glucose 92 (74-99) mg/dL Calcium 9.0 (8.4-10.2) mg/dL Total Bilirubin 0.3 (0.2-1.3) mg/dL AST 19 (14-36) U/L ALT 13 (4-34) U/L Alkaline Phosphatase 86 (38-126) U/L Troponin I <0.012 (0.000-0.034) ng/mL Total Protein 6.5 (6.3-8.2) g/dL Albumin 3.8 (3.5-5.0) g/dL Amylase <30 L (30-110) U/L Lipase 26 (23-300) U/L Urine Color Urine Appearance (Clear) Urine pH (5.0-8.0) Ur Specific Nora (1.001-1.035) Urine Protein (Negative) Urine Glucose (UA) (Negative) Urine Ketones (Negative) Urine Blood (Negative) Urine Nitrite (Negative) Urine Bilirubin (Negative) Urine Urobilinogen (<2.0) mg/dL Ur Leukocyte Esterase (Negative) Urine RBC (0-5) /hpf Urine WBC (0-5) /hpf Ur Squamous Epith Cells (0-4) /hpf Urine Bacteria (None) /hpf 11/08/21 11/08/21 Range/Units 22:37 23:24 WBC (3.8-10.6) k/uL RBC (3.80-5.40) m/uL Hgb (11.4-16.0) gm/dL Hct (34.0-46.0) % MCV (80.0-100.0) fL MCH (25.0-35.0) pg MCHC (31.0-37.0) g/dL RDW (11.5-15.5) % Plt Count (150-450) k/uL MPV Neutrophils % % Lymphocytes % % Monocytes % % Eosinophils % % Basophils % % Neutrophils # (1.3-7.7) k/uL Lymphocytes # (1.0-4.8) k/uL Monocytes # (0-1.0) k/uL Eosinophils # (0-0.7) k/uL Basophils # (0-0.2) k/uL D-Dimer 0.31 (<0.60) mg/L FEU Sodium (137-145) mmol/L Potassium (3.5-5.1) mmol/L Chloride (98-107) mmol/L Carbon Dioxide (22-30) mmol/L Anion Gap mmol/L BUN (7-17) mg/dL Creatinine (0.52-1.04) mg/dL Est GFR (CKD-EPI)AfAm (>60 ml/min/1.73 sqM) Est GFR (CKD-EPI)NonAf (>60 ml/min/1.73 sqM) Glucose (74-99) mg/dL Calcium (8.4-10.2) mg/dL Total Bilirubin (0.2-1.3) mg/dL AST (14-36) U/L ALT (4-34) U/L Alkaline Phosphatase (38-126) U/L Troponin I (0.000-0.034) ng/mL Total Protein (6.3-8.2) g/dL Albumin (3.5-5.0) g/dL Amylase (30-110) U/L Lipase (23-300) U/L Urine Color Yellow Urine Appearance Clear (Clear) Urine pH 6.5 (5.0-8.0) Ur Specific Nora 1.012 (1.001-1.035) Urine Protein Negative (Negative) Urine Glucose (UA) Negative (Negative) Urine Ketones Negative (Negative) Urine Blood Negative (Negative) Urine Nitrite Negative (Negative) Urine Bilirubin Negative (Negative) Urine Urobilinogen <2.0 (<2.0) mg/dL Ur Leukocyte Esterase Trace H (Negative) Urine RBC <1 (0-5) /hpf Urine WBC 5 (0-5) /hpf Ur Squamous Epith Cells 2 (0-4) /hpf Urine Bacteria Rare H (None) /hpf Disposition Clinical Impression: Bilateral leg pain, Shortness of breath Disposition: HOME SELF-CARE Condition: Good Instructions (If sedation given, give patient instructions): Leg Pain (ED) Additional Instructions: Continue to elevate the legs. Take Tylenol or Motrin as needed for pain. Follow-up with primary care provider in one to 2 days. Return to the emergency department experience new, concerning, or worsening symptoms. Is patient prescribed a controlled substance at d/c from ED?: No Referrals: Scarlet Sun MD [Primary Care Provider] - 1-2 days Time of Disposition: 23:52
[2021-11-08 23:42] LABS: Appearance,Urine Clear (Clear); Bacteria,Urine Rare /hpf; Bilirubin,Urine Negative (Negative); Blood,Urine Negative (Negative); Color,Urine Yellow; Glucose,Urine (UA) Negative (Negative); Ketones,Urine Negative (Negative); Leukocyte Esterase,Urine Trace (Negative); Nitrite,Urine Negative (Negative); PH, Urine 6.5 (5.0-8.0); Protein,Urine Negative (Negative); RBC,Urine <1 /hpf (0-5); Specific Gravity,Urine 1.012 (1.001-1.035); Squamous Epithelial Cell,Urine 2 /hpf (0-4); Urobilinogen,Urine <2.0 mg/dL (<2.0); WBC,Urine 5 /hpf (0-5)
== END 2021-11-09 00:17 | disposition home or self-care (01) ==
LOC: EC 19:18
DX: M79.605 Pain in left leg (principal); M79.604 Pain in right leg; R06.02 Shortness of breath; R10.9 Unspecified abdominal pain; K21.9 Gastro-esophageal reflux disease without esophagitis; Z87.891 Personal history of nicotine dependence; Z79.899 Other long term (current) drug therapy
CPT/HCPCS: 36415; 71046; 74018; 80053; 81001; 82150; 83690; 84484; 85025; 85379; 93970; 99285

== ENCOUNTER 2021-11-22 18:45 | Emergency (ER) | payer BC ==
[2021-11-22 20:55] VITALS: BP 145/83; PULSE 90; RESP 20; TEMP 98.3
[2021-11-22 21:45] LABS: Basophils % (A) 0 %; Eosinophils # (A) 0.3 k/uL (0-0.7); Eosinophils % (A) 6 %; Lymphocytes % (A) 16 %; MCH 28.6 pg (25.0-35.0); MCHC 32.5 g/dL (31.0-37.0); Mean Platelet Volume 6.7; Monocytes # (A) 0.2 k/uL (0-1.0); Monocytes % (A) 4 %; Neutrophils # (A) 4.5 k/uL (1.3-7.7); Neutrophils % (A) 73 %; Platelet Count 266 k/uL (150-450); RDW 13.3 % (11.5-15.5); WBC 6.2 k/uL (3.8-10.6)
[2021-11-22 21:53] LABS: ALT 16 U/L (4-34); AST 18 U/L (14-36); African American GFR (CKD) >90 (>60 ml/min/1.73 sqM); Albumin 3.6 g/dL (3.5-5.0); Alkaline Phosphatase 80 U/L (38-126); Anion Gap 10 mmol/L; Blood Urea Nitrogen 13 mg/dL (7-17); Calcium 8.6 mg/dL (8.4-10.2); Carbon Dioxide 23 mmol/L (22-30); Chloride 105 mmol/L (98-107); Glucose 102 mg/dL (74-99); Non-African American GFR(CKD) 83 (>60 ml/min/1.73 sqM); Sodium 138 mmol/L (137-145); Total Bilirubin 0.2 mg/dL (0.2-1.3); Total Protein 6.1 g/dL (6.3-8.2)
[2021-11-22] MEDS ORDERED: ORPHENADRINE 30 MG/ML 2 ML VIAL IM STA (22:56)
--- NOTE | 2021-11-22 23:06 | ED ---
General Adult HPI - General Chief complaint: Extremity Problem,Nontraumatic Stated complaint: Pain in both legs & rash Time Seen by Provider: 11/22/21 22:18 Source: patient Mode of arrival: ambulatory Limitations: no limitations - History of Present Illness Initial comments: Patient is a 46-year-old female presenting with chief complaint of cramping to t he bilateral lower extremities. Patient was seen here for similar complaint on 11/08, she received negative bilateral lower extremity Doppler ultrasounds, no evidence of DVT. Patient states that pain is not gotten worse, however she does get cramping randomly throughout the day. Patient also notices an abrasion to the ankle, patient was previously wearing Aircast for a sprain and states it was rubbing on the area. Patient has chronic edema to the bilateral lower extremities. Patient denies any numbness, tingling, weakness, loss of range of motion, chest pain, shortness of breath, fever, chills, nausea, vomiting. - Related Data Home Medications Medication Instructions Recorded Confirmed Benztropine Mesylate [Cogentin] 0.5 mg PO HS 10/28/17 11/08/21 FLUoxetine HCL [PROzac] 40 mg PO BID 10/28/17 11/08/21 Pantoprazole [Protonix] 40 mg PO DAILY 02/09/21 11/08/21 buPROPion XL [Wellbutrin XL] 150 mg PO DAILY 02/09/21 11/08/21 ARIPiprazole [Abilify] 15 mg PO DAILY 11/08/21 11/08/21 Acetaminophen Tab [Tylenol Tab] 1,000 mg PO Q6H PRN 11/08/21 11/08/21 Multivitamins, Thera [Multivitamin 1 tab PO DAILY 11/08/21 11/08/21 (formulary)] Previous Rx's Medication Instructions Recorded Naproxen [Naprosyn] 375 mg PO Q12HR PRN #20 tablet 11/07/21 Allergies Allergy/AdvReac Type Severity Reaction Status Date / Time No Known Allergies Allergy Verified 11/22/21 20:55 Review of Systems ROS Statement: Those systems with pertinent positive or pertinent negative responses have been documented in the HPI. ROS Other: All systems not noted in ROS Statement are negative. Past Medical History Past Medical History: GERD/Reflux Additional Past Medical History / Comment(s): sinus infections, pericarditis 2016, low vitamin D, states no pneumonia, History of Any Multi-Drug Resistant Organisms: MRSA Date of last positivie culture/infection: 2017 MDRO Source:: groin Past Surgical History: Cholecystectomy Past Psychological History: Bipolar, Schizoaffective Disorder Smoking Status: Former smoker Past Alcohol Use History: Occasional Past Drug Use History: None Reported - Past Family History Mother Family Medical History: No Reported History Father Family Medical History: Myocardial Infarction ([place]) General Exam Limitations: no limitations General appearance: alert, anxious Head exam: Present: atraumatic, normocephalic, normal inspection Eye exam: Present: normal appearance, EOMI. Absent: scleral icterus, periorbital swelling Neck exam: Present: normal inspection Respiratory exam: Present: normal lung sounds bilaterally. Absent: respiratory distress, wheezes, rales, rhonchi, stridor Cardiovascular Exam: Present: regular rate, normal rhythm, normal heart sounds. Absent: systolic murmur, diastolic murmur, rubs, gallop, clicks Extremities exam: Present: full ROM, pedal edema (Bilaterally). Absent: tenderness Neurological exam: Present: alert, oriented X3, CN II-XII intact Psychiatric exam: Present: normal affect, anxious Skin exam: Present: warm, dry, intact, normal color. Absent: rash Course Vital Signs 11/22/21 20:51 Temperature 98.3 F Pulse Rate 90 Respiratory 20 Rate Blood Pressure 145/83 O2 Sat by Pulse 99 Oximetry Medical Decision Making - Medical Decision Making Patient is a 46-year-old female presenting with chief complaint of cramping to the bilateral lower extremities an abrasion to the ankle. Patient sustained the abrasion from her air cast as she recently sprained the ankle, he wants to make sure it is not infected. Patient recently received lower extremity Doppler ultrasound negative for DVT bilaterally. On examination there is pedal edema. Otherwise examination WNL. CBC and CMP are unremarkable. BNP is 237. Patient is educated on supportive treatment for extremity cramping, including Motrin and Tylenol use and staying well-hydrated. Follow-up with PCP. Report back to ER with any new or worsening symptoms. Discussed return parameters and answered all questions. Patient conveyed verbal understanding and agreed to the plan. I discussed this case in detail with my attending Dr. Magaña - Lab Data Result diagrams: 11/22/21 21:22 11/22/21 21:22 Lab Results 11/22/21 11/22/21 11/22/21 Range/Units 21:22 21:22 21:22 WBC 6.2 (3.8-10.6) k/uL RBC 4.20 (3.80-5.40) m/uL Hgb 12.0 (11.4-16.0) gm/dL Hct 37.0 (34.0-46.0) % MCV 88.0 (80.0-100.0) fL MCH 28.6 (25.0-35.0) pg MCHC 32.5 (31.0-37.0) g/dL RDW 13.3 (11.5-15.5) % Plt Count 266 (150-450) k/uL MPV 6.7 Neutrophils % 73 % Lymphocytes % 16 % Monocytes % 4 % Eosinophils % 6 % Basophils % 0 % Neutrophils # 4.5 (1.3-7.7) k/uL Lymphocytes # 1.0 (1.0-4.8) k/uL Monocytes # 0.2 (0-1.0) k/uL Eosinophils # 0.3 (0-0.7) k/uL Basophils # 0.0 (0-0.2) k/uL Sodium 138 (137-145) mmol/L Potassium 4.0 (3.5-5.1) mmol/L Chloride 105 (98-107) mmol/L Carbon Dioxide 23 (22-30) mmol/L Anion Gap 10 mmol/L BUN 13 (7-17) mg/dL Creatinine 0.85 (0.52-1.04) mg/dL Est GFR (CKD-EPI)AfAm >90 (>60 ml/min/1.73 sqM) Est GFR (CKD-EPI)NonAf 83 (>60 ml/min/1.73 sqM) Glucose 102 H (74-99) mg/dL Calcium 8.6 (8.4-10.2) mg/dL Total Bilirubin 0.2 (0.2-1.3) mg/dL AST 18 (14-36) U/L ALT 16 (4-34) U/L Alkaline Phosphatase 80 (38-126) U/L NT-Pro-B Natriuret Pep 237 pg/mL Total Protein 6.1 L (6.3-8.2) g/dL Albumin 3.6 (3.5-5.0) g/dL Disposition Clinical Impression: Muscle spasm Disposition: HOME SELF-CARE Condition: Good Instructions (If sedation given, give patient instructions): Muscle Spasm (ED) Additional Instructions: Follow-up with PCP. Report back to ER with any new or worsening symptoms. Take Motrin and Tylenol as needed for pain control. Stay well-hydrated. Is patient prescribed a controlled substance at d/c from ED?: No Referrals: Scarlet Sun MD [Primary Care Provider] - 1-2 days Time of Disposition: 23:06
== END 2021-11-22 23:20 | disposition home or self-care (01) ==
LOC: EC 18:45
DX: M62.838 Other muscle spasm (principal); K21.9 Gastro-esophageal reflux disease without esophagitis; Z79.83 Long term (current) use of bisphosphonates; Z87.891 Personal history of nicotine dependence; Z82.49 Family history of ischemic heart disease and other diseases of the circulatory system
CPT/HCPCS: 36415; 83880; 80053; 85025; 99283; 96372; J2360

== ENCOUNTER 2022-01-15 19:16 | Emergency (ER) | payer BC ==
[2022-01-15 19:44] VITALS: TEMP 97.8
[2022-01-15 19:45] VITALS: BP 149/89; PULSE 86; RESP 20
--- NOTE | 2022-01-15 20:30 | ED ---
URI HPI - General Chief Complaint: Upper Respiratory Infection Stated Complaint: covid+ Time Seen by Provider: 01/15/22 20:11 Source: patient, RN notes reviewed Mode of arrival: ambulatory - History of Present Illness Initial Comments: This is a pleasant 46-year-old female who had a few episodes of nausea and vomiting and Friday. She then developed a cough and nasal congestion as well as a sore throat. Patient took her Covid test earlier today and it was positive. Patient has no history of lung disorders. Patient has no history of immunosuppression or diabetes. Denies chance of . Patient does suffer from obesity. No headache, subjective fever with minimal chills, no changes in vision or hearing, no no ear pain, mild headache, some sinus congestion., no neck pain, no chest pain or shortness of breath, no abdominal pain, , no changes in urination or bowel movements, no numbness or tingling, no extremity pain, no skin rashes or lesions. Past medical, surgical, social, and family history reviewed. MD Complaint: cough, sore throat, nasal congestion - Related Data Home Medications Medication Instructions Recorded Confirmed Benztropine Mesylate [Cogentin] 0.5 mg PO HS 10/28/17 11/08/21 FLUoxetine HCL [PROzac] 40 mg PO BID 10/28/17 11/08/21 Pantoprazole [Protonix] 40 mg PO DAILY 02/09/21 11/08/21 buPROPion XL [Wellbutrin XL] 150 mg PO DAILY 02/09/21 11/08/21 ARIPiprazole [Abilify] 15 mg PO DAILY 11/08/21 11/08/21 Acetaminophen Tab [Tylenol Tab] 1,000 mg PO Q6H PRN 11/08/21 11/08/21 Multivitamins, Thera [Multivitamin 1 tab PO DAILY 11/08/21 11/08/21 (formulary)] Previous Rx's Medication Instructions Recorded Naproxen [Naprosyn] 375 mg PO Q12HR PRN #20 tablet 11/07/21 Nirmatrelvir/Ritonavir [Paxlovid 1 each PO BID #10 each 01/15/22 300-100 mg Pack (Eua)] Allergies Allergy/AdvReac Type Severity Reaction Status Date / Time No Known Allergies Allergy Verified 01/15/22 19:44 Review of Systems ROS Statement: Those systems with pertinent positive or pertinent negative responses have been documented in the HPI. ROS Other: All systems not noted in ROS Statement are negative. Past Medical History Past Medical History: GERD/Reflux Additional Past Medical History / Comment(s): sinus infections, pericarditis 2016, low vitamin D, states no pneumonia, History of Any Multi-Drug Resistant Organisms: MRSA Date of last positivie culture/infection: 2016 MDRO Source:: groin Past Surgical History: Cholecystectomy Past Psychological History: Bipolar, Schizoaffective Disorder Smoking Status: Former smoker Past Alcohol Use History: Occasional Past Drug Use History: None Reported - Past Family History Mother Family Medical History: No Reported History Father Family Medical History: Myocardial Infarction ([place]) General Exam - General Exam Comments Initial Comments: Vital signs stable, patient afebrile. Patient does not appear to be ill or toxic. General appearance: alert, obese Head exam: Present: atraumatic, normocephalic, normal inspection Eye exam: Present: normal appearance, PERRL, EOMI. Absent: scleral icterus, conjunctival injection, periorbital swelling ENT exam: Present: normal exam, normal oropharynx, mucous membranes moist Neck exam: Present: normal inspection, full ROM. Absent: tenderness, meningismus, lymphadenopathy Respiratory exam: Present: normal lung sounds bilaterally. Absent: respiratory distress, wheezes, rales, rhonchi, stridor, chest wall tenderness, accessory muscle use, decreased breath sounds, prolonged expiratory Cardiovascular Exam: Present: regular rate, normal rhythm, normal heart sounds. Absent: systolic murmur, diastolic murmur, rubs, gallop, clicks GI/Abdominal exam: Present: soft, normal bowel sounds. Absent: distended, tenderness, guarding, rebound, rigid Extremities exam: Present: normal inspection, full ROM, normal capillary refill. Absent: tenderness, pedal edema, joint swelling, calf tenderness Back exam: Present: normal inspection Neurological exam: Present: alert, oriented X3, CN II-XII intact Psychiatric exam: Present: normal affect, normal mood Skin exam: Present: warm, dry, intact, normal color. Absent: rash Course Vital Signs 01/15/22 19:37 Temperature 97.8 F Pulse Rate 86 Respiratory 20 Rate Blood Pressure 149/89 O2 Sat by Pulse 99 Oximetry Medical Decision Making - Medical Decision Making Patient mildly hypertensive. Does not appear to be in any acute distress. Plan to treat with antiviral medication for COVID-19 as a patient tested positive for home. I see no need to test the patient again. Chest x-ray ordered. We'll consider corticosteroids if patient has evidence of COVID-19 pneumonia. Patient was told to return to the ER for any signs or symptoms worsen. Told to return immediately if any other problems arise. All questions answered. Treatment plan discussed. Patient in agreement Every effort has been made to ensure accuracy of this dictation. However, due to the limitations of electronic medical records and dictation devices, errors in charting still occur. Patient counseling quarantine measures. Counseled on disease course and treatment. Counseled conservative therapy. Patient reevaluated prior to discharge and is in no distress. Vital signs stable, no respiratory distress. We'll treat with Paxlovid Patient was told to return to the ER for any signs or symptoms worsen. Told to return immediately if any other problems arise. All questions answered. Treatment plan discussed. Patient in agreement Every effort has been made to ensure accuracy of this dictation. 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 Please maintain social distance of 6 feet if possible. You should not return to work until at least 3 days (72 hours) have passed since recovery of symptoms. This defined as resolution of fever without the use of fever reducing medicines and improvement in respiratory symptoms (e.g,, cough, shortness of breath) Isolation can end at least 5 days after symptom onset and after fever ends for 24 hours (without the use of fever-reducing medication) and symptoms are improving, if these people can continue to properly wear a well-fitted mask around others for 5 more days after the 5-day isolation period. If you're still having symptoms at the end of 5 day period, isolate for an additional 5 days. More information about what to do if you are sick can be found on the CDC website at htt ps://www.cdc.gov/coronavirus/2019-ncov/yh-def-qcu-sick/efmfp-hfae-wemv.html Expect the symptoms to last for 7-14 days from onset. Use acetaminophen (Tylenol) as needed for discomfort. You can take a maximum of 1 gram every 6 hours for discomfort, with your total dose in 24 hours not exceeding 4 grams. Be sure to maintain hydration. Drink continuous water and/or items high in vitamin C, such as orange juice and/or lemonade. Unless you have high blood pressure, you may consider Sudafed (which is [id number]) for nasal congestion. I would suggest that a short acting Sudafed rather than the 24 hour Sudafed. For a cough you may take Mucinex or Robitussin. Also consider the use of Vicks Vapor Rub or your chest when you sleep. Use a humidifier that is cleaned frequently, in the bedroom at night. For Nausea /Vomiting/Diarrhea associated with your Illness: o Small frequent sips of room temperature liquids. o Diet: [place] [employer] - If you are still experiencing discomfort and/or nausea please slowly advancing your diet using the BRAT Diet = bananas, rice, apples/apple sauce, toast. o With diarrhea avoid any dairy for 48 hours after symptoms resolved. o Continue with activity as tolerated. If your symptoms do get worse and you believe that the upper respiratory infection has developed into something else, such as pneumonia or severe dehydration, please return to the emergency department or follow-up with your primary care. But expect to be symptomatic for the days as indicated above Follow-up with your regular physician as directed. Return to the ER immediately if any symptoms worsen, new symptoms arise, or any other problems develop. Prescriptions: Nirmatrelvir/Ritonavir [Paxlovid 300-100 mg Pack (Eua)] 1 each PO BID #10 each Is patient prescribed a controlled substance at d/c from ED?: No Referrals: Scarlet Sun MD [Primary Care Provider] - 01/22/22 Time of Disposition: 20:58
--- NOTE | 2022-01-15 20:53 | XR ---
EXAMINATION TYPE: XR chest 2V DATE OF EXAM: 01/15/2022 8:37 PM COMPARISON: Chest radiographs from 11/08/2021 TECHNIQUE: XR chest 2V Frontal and lateral views of the chest. CLINICAL INDICATION:Female, 46 years old with history of Cough; FINDINGS: Lungs/Pleura: There is no evidence of pleural effusion, focal consolidation, or pneumothorax. Pulmonary vascularity: Unremarkable. Heart/mediastinum: Cardiomediastinal silhouette is unremarkable. Musculoskeletal: No acute osseous pathology. IMPRESSION: No acute cardiopulmonary disease/process.
== END 2022-01-15 21:19 | disposition home or self-care (01) ==
LOC: EC 19:16
DX: U07.1 COVID-19 (principal); K21.9 Gastro-esophageal reflux disease without esophagitis; Z87.891 Personal history of nicotine dependence
CPT/HCPCS: 71046; 99283

== ENCOUNTER 2022-04-13 16:37 | Emergency (ER) | payer BC ==
[2022-04-13] MEDS ORDERED: SODIUM CHLORIDE 0.9% 500 ML 500 ML IV STA (17:48)
[2022-04-13] MEDS ORDERED: KETOROLAC 15 MG/ML 1 ML VIAL IVP STA (17:48)
[2022-04-13] MEDS ORDERED: PANTOPRAZOLE 40 MG/10 ML VIAL IVP STA (17:48)
--- NOTE | 2022-04-13 17:55 | ED ---
Abdominal Pain HPI - General Chief Complaint: Abdominal Pain Stated Complaint: stomach pain, chest pain, headache Time Seen by Provider: 04/13/22 17:35 Source: patient, RN notes reviewed, old records reviewed Mode of arrival: ambulatory Limitations: no limitations - History of Present Illness Initial Comments: This is a nontoxic-appearing 46-year-old female presents to the emergency room with multiple complaints. Patient states that she's had abdominal pain and left upper and left lower and epigastric for the past 2 days. Did have an episode of diarrhea was brown and watery in nature today. States that for the past 4 days she is also having occipital headache. States that she also has some pressure in her chest for the past couple of days. She denies any fevers. Does have occasional nausea. History of GERD, cholecystectomy, morbid obesity, former smoker. Lives with her . MD Complaint: abdominal pain, other (epigastric and chest pain and headache occipital) -: days(s) (2) Severity scale (1-10): 8 Consistency: constant Improves With: nothing Associated Symptoms: nausea, diarrhea - Related Data Patient : No Home Medications Medication Instructions Recorded Confirmed Benztropine Mesylate [Cogentin] 0.5 mg PO HS 10/28/17 11/08/21 FLUoxetine HCL [PROzac] 40 mg PO BID 10/28/17 11/08/21 Pantoprazole [Protonix] 40 mg PO DAILY 02/09/21 11/08/21 buPROPion XL [Wellbutrin XL] 150 mg PO DAILY 02/09/21 11/08/21 ARIPiprazole [Abilify] 15 mg PO DAILY 11/08/21 11/08/21 Acetaminophen Tab [Tylenol Tab] 1,000 mg PO Q6H PRN 11/08/21 11/08/21 Multivitamins, Thera [Multivitamin 1 tab PO DAILY 11/08/21 11/08/21 (formulary)] Previous Rx's Medication Instructions Recorded Naproxen [Naprosyn] 375 mg PO Q12HR PRN #20 tablet 11/07/21 Nirmatrelvir/Ritonavir [Paxlovid 1 each PO BID #10 each 01/15/22 300-100 mg Pack (Eua)] Allergies Allergy/AdvReac Type Severity Reaction Status Date / Time No Known Allergies Allergy Verified 04/13/22 16:59 Review of Systems ROS Statement: Those systems with pertinent positive or pertinent negative responses have been documented in the HPI. ROS Other: All systems not noted in ROS Statement are negative. Past Medical History Past Medical History: GERD/Reflux Additional Past Medical History / Comment(s): sinus infections, pericarditis 2016, low vitamin D, states no pneumonia, History of Any Multi-Drug Resistant Organisms: MRSA Date of last positivie culture/infection: 2016 MDRO Source:: groin Past Surgical History: Cholecystectomy Past Psychological History: Bipolar, Schizoaffective Disorder Smoking Status: Former smoker Past Alcohol Use History: Occasional Past Drug Use History: None Reported - Past Family History Mother Family Medical History: No Reported History Father Family Medical History: Myocardial Infarction ([place]) General Exam Limitations: no limitations General appearance: alert, in no apparent distress Head exam: Present: atraumatic, normocephalic Eye exam: Present: normal appearance. Absent: scleral icterus, conjunctival injection, periorbital swelling Neck exam: Absent: meningismus Respiratory exam: Present: normal lung sounds bilaterally. Absent: respiratory distress, accessory muscle use Cardiovascular Exam: Present: regular rate, normal rhythm GI/Abdominal exam: Present: soft. Absent: distended, tenderness, guarding, rebound, rigid Extremities exam: Present: normal capillary refill. Absent: pedal edema, calf tenderness Back exam: Present: normal inspection. Absent: tenderness, CVA tenderness (R), CVA tenderness (L), rash noted Neurological exam: Present: alert, oriented X3 Psychiatric exam: Present: normal affect, normal mood Skin exam: Present: warm, dry, normal color. Absent: cyanosis, diaphoretic, petechiae, pallor Course Vital Signs 04/13/22 04/13/22 04/13/22 16:56 18:33 20:39 Temperature 98.1 F 98.2 F Pulse Rate 75 58 L 82 Respiratory 18 18 16 Rate Blood Pressure 129/70 178/86 114/58 O2 Sat by Pulse 100 100 99 Oximetry Medical Decision Making - Medical Decision Making EKG shows sinus rhythm with a ventricular rate of 73, MO interval 0.155, QRS 0.86, QTC 0.422, normal axis, compared to old EKG dated 11/06/2021 no significant change. Troponin is negative. HEART score low Labs unremarkable no evidence of leukocytosis. Urinalysis is negative. CT shows no acute intra-abdominal process. No evidence of diverticulitis or obstructive uropathy or urolithiasis. Normal appendix. Moderate to severe spinal canal stenosis L4-L5 secondary disc bulge facet joint arthropathy. On physical exam abdomen is soft and nontender. Vital signs are stable. She was given IV fluids, Protonix and Toradol with relief of her symptoms of abdominal pain. Patient discharged with follow-up with Dr. Sun on Friday and return with any new or concerning symptoms she is agreeable to this plan of care. Case discussed with Dr. Collado. Was pt. sent in by a medical professional or institution? @ -no Did you speak to anyone other than the patient for history? @ -no Did you review nursing and triage notes? @ -yes i agree Were old charts reviewed? @ -old ekg Differential Diagnosis? @ -Differential Abdominal Pain Women: Appendicitis, Cholecystitis, diverticulosis, ischemic bowel, pancreatitis, hepatitis, UTI, gastroenteritis, AAA, incarcerated hernia, bowel obstruction, constipation, inflammatory bowel, hepatitis, peptic ulcer disease, splenic infarction, perforated viscus, vulvitis, ovarian torsion, PID, kidney stone, placenta abruption, this is not meant to be an all-inclusive list EKG interpreted by me (3pts min.)? @ -yes as above X-rays interpreted by me (1pt min.)? @ -[none] CT interpreted by me (1pt min.)? @ -no U/S interpreted by me (1pt. min.)? @ -[none] What testing was considered but not performed? (CT, X-rays, U/S, labs)? Why? @ none What meds were considered but not given? Why? @ -none Did you discuss the management of the patient with other professionals? @ -no Did you reconcile home meds? @ -[none] Was smoking cessation discussed for >3mins.? @ -n/a former smoker Was critical care preformed (if so, how long)? @ -no Were there social determinants of health that impacted care today? How? (Homelessness, low income, unemployed, alcoholism, drug addiction, transportation, low edu. Level, literacy, decrease access to med. care, snf, rehab)? @ -none Was there de-escalation of care discussed even if they declined? (Discuss DNR or withdrawal of care, Hospice)? @ -no What co-morbidities impacted this encounter? (DM, HTN, Smoking, COPD, CAD, Cancer, CVA, Hep., AIDS, mental health diagnosis, sleep apnea, morbid obesity)? @ -GERD, cholecystectomy, morbid obesity, former smoker Was patient admitted / discharged? @ discharged Undiagnosed new problem with uncertain prognosis? @ -[none] Drug Therapy requiring intensive monitoring for toxicity (Heparin, Nitro, Insulin, Cardizem)? @ -[none] Were any procedures done? @ -no Diagnosis/symptom? @ -Abdominal pain, headache Acute, or Chronic, or Acute on Chronic? @ -Acute Uncomplicated (without systemic symptoms) or Complicated (systemic symptoms)? @ -Complicated Side effects of treatment? @ -[none] Exacerbation, Progression, or Severe Exacerbation] @ -[no] Poses a threat to life or bodily function? @ -[no] - Lab Data Result diagrams: 04/13/22 18:10 04/13/22 18:10 Lab Results 04/13/22 04/13/22 04/13/22 Range/Units 18:10 18:10 18:10 WBC 6.5 (3.8-10.6) k/uL RBC 4.52 (3.80-5.40) m/uL Hgb 12.9 (11.4-16.0) gm/dL Hct 38.0 (34.0-46.0) % MCV 84.1 (80.0-100.0) fL MCH 28.6 (25.0-35.0) pg MCHC 34.0 (31.0-37.0) g/dL RDW 13.8 (11.5-15.5) % Plt Count 270 (150-450) k/uL MPV 6.6 Neutrophils % 79 % Lymphocytes % 12 % Monocytes % 2 % Eosinophils % 3 % Basophils % 0 % Neutrophils # 5.1 (1.3-7.7) k/uL Lymphocytes # 0.8 L (1.0-4.8) k/uL Monocytes # 0.2 (0-1.0) k/uL Eosinophils # 0.2 (0-0.7) k/uL Basophils # 0.0 (0-0.2) k/uL PT 9.7 (9.0-12.0) sec INR 0.9 (<1.2) APTT 25.8 (22.0-30.0) sec Sodium 138 (137-145) mmol/L Potassium 4.3 (3.5-5.1) mmol/L Chloride 106 (98-107) mmol/L Carbon Dioxide 27 (22-30) mmol/L Anion Gap 5 mmol/L BUN 13 (7-17) mg/dL Creatinine 0.90 (0.52-1.04) mg/dL Est GFR (CKD-EPI)AfAm 90 (>60 ml/min/1.73 sqM) Est GFR (CKD-EPI)NonAf 78 (>60 ml/min/1.73 sqM) Glucose 88 (74-99) mg/dL Plasma Lactic Acid Phani (0.7-2.0) mmol/L Calcium 8.5 (8.4-10.2) mg/dL Total Bilirubin 0.4 (0.2-1.3) mg/dL AST 25 (14-36) U/L ALT 21 (4-34) U/L Alkaline Phosphatase 105 (38-126) U/L Troponin I (0.000-0.034) ng/mL Total Protein 7.0 (6.3-8.2) g/dL Albumin 4.1 (3.5-5.0) g/dL Amylase 39 (30-110) U/L Lipase 33 (23-300) U/L Urine Color Urine Appearance (Clear) Urine pH (5.0-8.0) Ur Specific [place] (1.001-1.035) Urine Protein (Negative) Urine Glucose (UA) (Negative) Urine Ketones (Negative) Urine Blood (Negative) Urine Nitrite (Negative) Urine Bilirubin (Negative) Urine Urobilinogen (<2.0) mg/dL Ur Leukocyte Esterase (Negative) 04/13/22 04/13/22 04/13/22 Range/Units 18:10 18:10 18:10 WBC (3.8-10.6) k/uL RBC (3.80-5.40) m/uL Hgb (11.4-16.0) gm/dL Hct (34.0-46.0) % MCV (80.0-100.0) fL MCH (25.0-35.0) pg MCHC (31.0-37.0) g/dL RDW (11.5-15.5) % Plt Count (150-450) k/uL MPV Neutrophils % % Lymphocytes % % Monocytes % % Eosinophils % % Basophils % % Neutrophils # (1.3-7.7) k/uL Lymphocytes # (1.0-4.8) k/uL Monocytes # (0-1.0) k/uL Eosinophils # (0-0.7) k/uL Basophils # (0-0.2) k/uL PT (9.0-12.0) sec INR (<1.2) APTT (22.0-30.0) sec Sodium (137-145) mmol/L Potassium (3.5-5.1) mmol/L Chloride (98-107) mmol/L Carbon Dioxide (22-30) mmol/L Anion Gap mmol/L BUN (7-17) mg/dL Creatinine (0.52-1.04) mg/dL Est GFR (CKD-EPI)AfAm (>60 ml/min/1.73 sqM) Est GFR (CKD-EPI)NonAf (>60 ml/min/1.73 sqM) Glucose (74-99) mg/dL Plasma Lactic Acid Phani 0.7 (0.7-2.0) mmol/L Calcium (8.4-10.2) mg/dL Total Bilirubin (0.2-1.3) mg/dL AST (14-36) U/L ALT (4-34) U/L Alkaline Phosphatase (38-126) U/L Troponin I <0.012 (0.000-0.034) ng/mL Total Protein (6.3-8.2) g/dL Albumin (3.5-5.0) g/dL Amylase (30-110) U/L Lipase (23-300) U/L Urine Color Yellow Urine Appearance Clear (Clear) Urine pH 6.5 (5.0-8.0) Ur Specific [place] 1.014 (1.001-1.035) Urine Protein Negative (Negative) Urine Glucose (UA) Negative (Negative) Urine Ketones Negative (Negative) Urine Blood Negative (Negative) Urine Nitrite Negative (Negative) Urine Bilirubin Negative (Negative) Urine Urobilinogen <2.0 (<2.0) mg/dL Ur Leukocyte Esterase Negative (Negative) Disposition Clinical Impression: Abdominal pain, Atypical chest pain Disposition: HOME SELF-CARE Condition: Good Instructions (If sedation given, give patient instructions): Chest Pain (ED), Abdominal Pain (ED) Additional Instructions: Increase your fluid intake. Follow-up with your primary care doctor on Friday. Return to the emergency room with any new or concerning symptoms. Is patient prescribed a controlled substance at d/c from ED?: No Referrals: Scarlet Sun MD [Primary Care Provider] - 1-2 days Time of Disposition: 19:33
[2022-04-13 18:23] LABS: Appearance,Urine Clear (Clear); Bilirubin,Urine Negative (Negative); Blood,Urine Negative (Negative); Color,Urine Yellow; Glucose,Urine (UA) Negative (Negative); Ketones,Urine Negative (Negative); Leukocyte Esterase,Urine Negative (Negative); Nitrite,Urine Negative (Negative); PH, Urine 6.5 (5.0-8.0); Protein,Urine Negative (Negative); Specific Gravity,Urine 1.014 (1.001-1.035); Urobilinogen,Urine <2.0 mg/dL (<2.0)
[2022-04-13 18:30] LABS: Basophils % (A) 0 %; Eosinophils # (A) 0.2 k/uL (0-0.7); Eosinophils % (A) 3 %; HGB 12.9 gm/dL (11.4-16.0); Lymphocytes # (A) 0.8 k/uL (1.0-4.8); Lymphocytes % (A) 12 %; MCH 28.6 pg (25.0-35.0); MCV 84.1 fL (80.0-100.0); Mean Platelet Volume 6.6; Monocytes # (A) 0.2 k/uL (0-1.0); Monocytes % (A) 2 %; Neutrophils # (A) 5.1 k/uL (1.3-7.7); Neutrophils % (A) 79 %; Platelet Count 270 k/uL (150-450); RBC 4.52 m/uL (3.80-5.40); RDW 13.8 % (11.5-15.5); WBC 6.5 k/uL (3.8-10.6)
[2022-04-13 18:41] LABS: INR 0.9 (<1.2); Partial Thromboplastin Time 25.8 sec (22.0-30.0); Prothrombin Time 9.7 sec (9.0-12.0)
[2022-04-13 18:43] LABS: Albumin 4.1 g/dL (3.5-5.0); Calcium 8.5 mg/dL (8.4-10.2); Potassium 4.3 mmol/L (3.5-5.1); Total Bilirubin 0.4 mg/dL (0.2-1.3)
--- NOTE | 2022-04-13 19:17 | CT ---
EXAMINATION TYPE: CT abdomen pelvis w con CT DLP: 4111 mGycm, Automated exposure control for dose reduction was used. DATE OF EXAM: 04/13/2022 7:04 PM COMPARISON: CT abdomen pelvis most recent from CLINICAL INDICATION:Female, 46 years old with history of Left sided abd pain 2 days; Left sided abd p ain 2 days TECHNIQUE: Axial CT of the abdomen and pelvis. Sagittal and coronal reformats were created on a [employer] workstation. Contrast used:100ML mL of Isovue 300 with IV Contrast, Oral contrast used: without Oral Contrast FINDINGS: LOWER CHEST: Unremarkable ABDOMEN LIVER: Unremarkable GALLBLADDER AND BILE DUCTS: Gallbladder surgically absent. PANCREAS: Unremarkable. SPLEEN: Unremarkable. ADRENAL GLANDS: Unremarkable. KIDNEYS AND URETERS: No evidence of hydronephrosis or renal calculus. The ureters are unremarkable. PELVIS BLADDER: Unremarkable REPRODUCTIVE: Unremarkable. ABDOMEN & PELVIS STOMACH AND BOWEL: No evidence of bowel obstruction. Colon is relatively nondistended. Appendix is no rmal. PERITONEUM/RETROPERITONEUM: No evidence of pneumoperitoneum or free fluid. . VASCULATURE: No evidence of aortic aneurysm. MUSCULOSKELETAL: No acute osseous abnormalities, multilevel disc degeneration changes with scoliotic stenosis mildly leftward apex L2-L3. Moderate to severe spinal canal stenosis at L4-L5 secondary to d isc bulge and facet joint arthropathy. LYMPH NODES: No gross evidence for lymphadenopathy. SOFT TISSUE/ABDOMINAL WALL: Tiny fat-containing umbilical hernia. IMPRESSION: 1. No acute intra-abdominal process. No evidence of diverticulitis, obstructive uropathy or urolithi asis. Normal appendix. 2. Moderate to severe spinal canal stenosis L4-L5 secondary disc bulge and facet joint arthropathy.2
[2022-04-13 20:40] VITALS: BP 114/58; PULSE 82; RESP 16; TEMP 98.2
== END 2022-04-13 20:40 | disposition home or self-care (01) ==
LOC: EC 16:37
DX: R10.32 Left lower quadrant pain (principal); R07.89 Other chest pain; K21.9 Gastro-esophageal reflux disease without esophagitis; E66.01 Morbid (severe) obesity due to excess calories; Z87.891 Personal history of nicotine dependence; Z79.1 Long term (current) use of non-steroidal anti-inflammatories (NSAID); Z79.899 Other long term (current) drug therapy
CPT/HCPCS: 36415; 93005; 80053; 82150; 83605; 83690; 84484; 85025; 85610; 85730; 81003; 74177; 99284; 96374; 96375; 96361; J1885; C9113; Q9967

== ENCOUNTER → 2023-02-21 | Outpatient (CLI) | payer OTHER ==
--- NOTE | 2023-02-21 12:24 | US ---
EXAMINATION TYPE: US pelvis complete transvag DATE OF EXAM: 02/21/2023 COMPARISON: NONE CLINICAL INDICATION: Female, 47 years old with history of N93.9 ABNORMAL UTERINE AND VAGINAL BLEEDING , UNSPE; Spotting and burning sensation between menses. TECHNIQUE: Transabdominal sonographic images of the pelvis were acquired. Transvaginal sonographic i mages were medically necessary to better assess the following anatomy: per order Date of LMP: end january EXAM MEASUREMENTS: Uterus: 7.3 x 3.6 x 5.3 cm Endometrial Stripe: 1.1 cm Right Ovary: unable to visualize Left Ovary: 3.7 x 2.2 x 2.3 cm for a volume of 9.8 mL Human Resources Compensation Analyst notes:*Technical limitations due to patients body habitus 1. Uterus: Anteverted. The myometrium is mildly heterogeneous. Tiny 4 mm cervical nabothian cyst. 2. Endometrium: thickened for menstrual stage 3. Right Ovary: Obscured by overlying bowel gas 4. Left Ovary: With normal follicular change. 5. Bilateral Adnexa: wnl 6. Posterior cul-de-sac: wnl IMPRESSION: 1. Endometrial stripe thickening up to 1.1 cm should correspond to the secretory phase of menstrual c ycle. 2. Normal follicular change in the left ovary. 3. Unable to visualize the right ovary.
== END | disposition home or self-care (01) ==
LOC: RADUSWWP 06:54
PROVIDERS: ATTEND Obstetrics & Gynecology
DX: N93.9 Abnormal uterine and vaginal bleeding, unspecified (principal); N83.8 Other noninflammatory disorders of ovary, fallopian tube and broad ligament
CPT/HCPCS: 76830; 76856

== ENCOUNTER 2023-02-22 11:55 | Emergency (ER) | payer OTHER ==
[2023-02-22 12:27] VITALS: TEMP 98.2
--- NOTE | 2023-02-22 12:40 | XR ---
EXAMINATION TYPE: XR chest 2V DATE OF EXAM: 02/22/2023 COMPARISON: 12/30/2022 HISTORY: 47 year-old female shortness of breath, difficulty breathing TECHNIQUE: PA and lateral views FINDINGS: Heart normal size. Aorta and pulmonary vasculature within normal limits. Mild interstitial prominence and mild peribronchial cuffing. No consolidation or pleural effusion. IMPRESSION: Correlate for bronchitis or asthma. Otherwise, no focal infiltrate.
[2023-02-22 12:51] LABS: INR 0.9 (<1.2); Partial Thromboplastin Time 25.8 sec (22.0-30.0); Prothrombin Time 10.1 sec (10.0-12.5)
[2023-02-22 12:54] LABS: ALT 15 U/L (4-34); AST 19 U/L (14-36); African American GFR (CKD) >90 (>60 ml/min/1.73 sqM); Albumin 3.5 g/dL (3.5-5.0); Alkaline Phosphatase 100 U/L (38-126); Anion Gap 8 mmol/L; Blood Urea Nitrogen 13 mg/dL (7-17); Calcium 8.7 mg/dL (8.4-10.2); Carbon Dioxide 26 mmol/L (22-30); Chloride 104 mmol/L (98-107); Glucose 91 mg/dL (74-99); Non-African American GFR(CKD) >90 (>60 ml/min/1.73 sqM); Potassium 3.9 mmol/L (3.5-5.1); Sodium 138 mmol/L (137-145); Total Bilirubin 0.3 mg/dL (0.2-1.3); Total Protein 6.4 g/dL (6.3-8.2)
[2023-02-22 12:55] LABS: Basophils % (A) 0 %; Eosinophils # (A) 0.2 k/uL (0-0.7); Eosinophils % (A) 3 %; HCT 36.9 % (34.0-46.0); HGB 12.4 gm/dL (11.4-16.0); Lymphocytes # (A) 1.2 k/uL (1.0-4.8); Lymphocytes % (A) 17 %; MCH 28.2 pg (25.0-35.0); MCHC 33.6 g/dL (31.0-37.0); MCV 83.9 fL (80.0-100.0); Mean Platelet Volume 6.9; Monocytes # (A) 0.3 k/uL (0-1.0); Monocytes % (A) 4 %; Neutrophils # (A) 5.2 k/uL (1.3-7.7); Neutrophils % (A) 74 %; Platelet Count 325 k/uL (150-450); WBC 7.1 k/uL (3.8-10.6)
--- NOTE | 2023-02-22 13:00 | ED ---
SOB HPI - General Source: patient, RN notes reviewed Mode of arrival: ambulatory <Blanca Wilkins - Last Filed: 02/22/23 12:58> <Bryan Davila - Last Filed: 02/22/23 14:28> - General Chief Complaint: Shortness of Breath Stated Complaint: sob Time Seen by Provider: 02/22/23 12:59 - History of Present Illness Initial Comments: Patient is a 47-year-old female presented ER with chief complaint of shortness of breath. Patient states this been going on all night. Patient has a history of asthma. Patient denies any fevers, chills, night sweats. (Blanca Wilkins) 47-year-old female presents with dyspnea, worse in the morning and worse with lying flat. Patient states she had a sleep study performed but has not had the results yet. She denies cough. Denies fever. Denies chest pain. Denies lower extremity pain or swelling. Denies abdominal pain. (Bryan Davila) - Related Data Home Medications Medication Instructions Recorded Confirmed Benztropine Mesylate [Cogentin] 0.5 mg PO HS 10/28/17 11/08/21 FLUoxetine HCL [PROzac] 40 mg PO BID 10/28/17 11/08/21 Pantoprazole [Protonix] 40 mg PO DAILY 02/09/21 11/08/21 buPROPion XL [Wellbutrin XL] 150 mg PO DAILY 02/09/21 11/08/21 ARIPiprazole [Abilify] 15 mg PO DAILY 11/08/21 11/08/21 Acetaminophen Tab [Tylenol Tab] 1,000 mg PO Q6H PRN 11/08/21 11/08/21 Multivitamins, Thera [Multivitamin 1 tab PO DAILY 11/08/21 11/08/21 (formulary)] Previous Rx's Medication Instructions Recorded Naproxen [Naprosyn] 375 mg PO Q12HR PRN #20 tablet 11/07/21 Nirmatrelvir/Ritonavir [Paxlovid 1 each PO BID #10 each 01/15/22 300-100 mg Pack (Eua)] Mag Hydrox/Aluminum Hyd/Simeth 10 ml PO Q4-6H PRN #355 ml 12/15/22 [Mylanta Maximum Strength Liq] Ondansetron Odt [Zofran Odt] 4 mg PO Q8HR PRN #20 tab 12/15/22 Promethazine/Dextromethorphan 5 ml PO Q4-6H PRN #473 ml 12/15/22 [Promethazine-Dm 6.25-15 mg/5Ml] Allergies Allergy/AdvReac Type Severity Reaction Status Date / Time No Known Allergies Allergy Verified 12/30/22 08:28 Review of Systems ROS Other: All systems not noted in ROS Statement are negative. <Blanca Wilkins - Last Filed: 02/22/23 12:58> ROS Other: All systems not noted in ROS Statement are negative. <Bryan Davila - Last Filed: 02/22/23 14:28> ROS Statement: Those systems with pertinent positive or pertinent negative responses have been documented in the HPI. Past Medical History Past Medical History: GERD/Reflux, Hypertension Additional Past Medical History / Comment(s): sinus infections, pericarditis 2016, low vitamin D, states no pneumonia, History of Any Multi-Drug Resistant Organisms: MRSA Date of last positivie culture/infection: 2017 MDRO Source:: groin Past Surgical History: Cholecystectomy Past Psychological History: Bipolar, Schizoaffective Disorder Smoking Status: Former smoker Past Alcohol Use History: Occasional Past Drug Use History: None Reported - Past Family History Mother Family Medical History: No Reported History Father Family Medical History: Myocardial Infarction ([place]) <Blanca Wilkins - Last Filed: 02/22/23 12:58> General Exam <Blanca Wilkins - Last Filed: 02/22/23 12:58> General appearance: alert, in no apparent distress Head exam: Present: atraumatic, normocephalic Eye exam: Present: normal appearance, PERRL ENT exam: Present: normal exam Neck exam: Present: normal inspection. Absent: tenderness, meningismus Respiratory exam: Present: normal lung sounds bilaterally. Absent: respiratory distress, wheezes, rales Cardiovascular Exam: Present: regular rate, normal rhythm GI/Abdominal exam: Present: soft. Absent: distended, tenderness, guarding Extremities exam: Present: normal inspection, normal capillary refill. Absent: pedal edema, calf tenderness Neurological exam: Present: alert, oriented X3, CN II-XII intact. Absent: motor sensory deficit Psychiatric exam: Present: normal affect, normal mood Skin exam: Present: warm, dry, intact. Absent: cyanosis, diaphoretic <Bryan Davila - Last Filed: 02/22/23 14:28> - General Exam Comments Initial Comments: Visual Physical Exam Vital signs reviewed General: Well-appearing, nontoxic, no acute distress. Head: Normocephalic, atraumatic Eyes: PERRLA, EOMI ENT: Airway patent Chest: Nonlabored breathing Skin: No visual rash, normal skin tone Neuro: Alert and oriented 3 Musculoskeletal: No gross abnormalities (Blanca Wilkins) Course Vital Signs 02/22/23 02/22/23 12:09 13:52 Temperature 98.2 F Pulse Rate 75 66 Respiratory 16 18 Rate Blood Pressure 138/75 136/76 O2 Sat by Pulse 96 99 Oximetry Medical Decision Making - Lab Data Result diagrams: 02/22/23 12:21 02/22/23 12:21 <Blanca Wilkins - Last Filed: 02/22/23 12:58> - Lab Data Result diagrams: 02/22/23 12:21 02/22/23 12:21 <Bryan Davila - Last Filed: 02/22/23 14:28> - Medical Decision Making I performed the quick note portion of the exam. Electronically signed by Blanca Wilkins PA-C (Blanca Wilkins) Was pt. sent in by a medical professional or institution ([facility], LEAD ASSISTANT MANAGER, urgent care, hospital, or shelter...) When possible be specific @ -No Did you speak to anyone other than the patient for history (EMS, parent, family, police, friend...)? What history was obtained from this source @ -No Did you review nursing and triage notes (agree or disagree)? Why? @ -I reviewed and agree with nursing and triage notes Were old charts reviewed (outside hosp., previous admission, EMS record, old EKG, old radiological studies, urgent care reports/EKG's, shelter records)? Report findings @ -No old charts were reviewed Differential Diagnosis (chest pain, altered mental status, abdominal pain women, abdominal pain men, vaginal bleeding, weakness, fever, dyspnea, syncope, headache, dizziness, GI bleed, back pain, seizure, CVA, palpatations, mental health, musculoskeletal)? @ -[Differential Dyspnea: Coronary syndrome, arrhythmia, tamponade, asthma, COPD, pulmonary embolism, p neumonia, pneumothorax, pulmonary effusion, anaphylaxis, diabetic ketoacidosis, flailed chest, pulmonary contusion, diaphragmatic rupture, anemia, neuromuscular, this is not meant to be an all-inclusive list. EKG interpreted by me (3pts min.). @ Sinus rhythm rate of 72, HI interval 170, QRS duration 87, QTC [address] segment elevation. X-rays interpreted by me (1pt min.). @ -This x-ray negative for focal pneumonia, no acute findings CT interpreted by me (1pt min.). @ -None done U/S interpreted by me (1pt. min.). @ -None done What testing was considered but not performed or refused? (CT, X-rays, U/S, labs)? Why? @ -None What meds were considered but not given or refused? Why? @ -None Did you discuss the management of the patient with other professionals (professionals i.e. , PA, LEAD ASSISTANT MANAGER, lab, RT, psych nurse, web content & social media manager, plant care worker, teacher, disability insurance hearing officer, case management manager)? Give summary @ -No Was smoking cessation discussed for >3mins.? @ -No Was critical care preformed (if so, how long)? @ -No Were there social determinants of health that impacted care today? How? (Homelessness, low income, unemployed, alcoholism, drug addiction, transportation, low edu. Level, literacy, decrease access to med. care, senior living, rehab)? @ -No Was there de-escalation of care discussed even if they declined (Discuss DNR or withdrawal of care, Hospice)? DNR status @ -No What co-morbidities impacted this encounter? (DM, HTN, Smoking, COPD, CAD, Cancer, CVA, ARF, Chemo, Hep., AIDS, mental health diagnosis, sleep apnea, morbid obesity)? @ -Morbid obesity Was patient admitted / discharged? Hospital course, mention meds given and rout e, prescriptions, significant lab abnormalities, going to OR and other pertinent info. @ 47-year-old female with dyspnea while lying flat. Patient weighs 165 kg. Likely related to obesity associated hypoventilation. Workup reveals a sinus rhythm EKG. Normal CBC, normal CMP, negative d-dimer, negative troponin. Patient is stable for discharge at this time with close outpatient follow-up. She has already undergone sleep study and is awaiting results. Undiagnosed new problem with uncertain prognosis? @ -No Drug Therapy requiring intensive monitoring for toxicity (Heparin, Nitro, Insulin, Cardizem)? @ -No Were any procedures done? @ -No Diagnosis/symptom? @ Dyspnea Acute, or Chronic, or Acute on Chronic? @acute Uncomplicated (without systemic symptoms) or Complicated (systemic symptoms)? @ -[complicated Side effects of treatment? @ -No Exacerbation, Progression, or Severe Exacerbation? @ -No Poses a threat to life or bodily function? How? (Chest pain, [place], [place], pneumonia, PE, COPD, DKA, ARF, appy, cholecystitis, CVA, Diverticulitis, Homicidal, Suicidal, threat to staff... and all critical care pts) @ low risk at this time (Bryan Davila) - Lab Data Lab Results 02/22/23 02/22/23 02/22/23 Range/Units 12:21 12:21 12:21 WBC 7.1 (3.8-10.6) k/uL RBC 4.40 (3.80-5.40) m/uL Hgb 12.4 (11.4-16.0) gm/dL Hct 36.9 (34.0-46.0) % MCV 83.9 (80.0-100.0) fL MCH 28.2 (25.0-35.0) pg MCHC 33.6 (31.0-37.0) g/dL RDW 14.0 (11.5-15.5) % Plt Count 325 (150-450) k/uL MPV 6.9 Neutrophils % 74 % Lymphocytes % 17 % Monocytes % 4 % Eosinophils % 3 % Basophils % 0 % Neutrophils # 5.2 (1.3-7.7) k/uL Lymphocytes # 1.2 (1.0-4.8) k/uL Monocytes # 0.3 (0-1.0) k/uL Eosinophils # 0.2 (0-0.7) k/uL Basophils # 0.0 (0-0.2) k/uL PT 10.1 (10.0-12.5) sec INR 0.9 (<1.2) APTT 25.8 (22.0-30.0) sec D-Dimer (<0.60) mg/L FEU Sodium 138 (137-145) mmol/L Potassium 3.9 (3.5-5.1) mmol/L Chloride 104 (98-107) mmol/L Carbon Dioxide 26 (22-30) mmol/L Anion Gap 8 mmol/L BUN 13 (7-17) mg/dL Creatinine 0.66 (0.52-1.04) mg/dL Est GFR (CKD-EPI)AfAm >90 (>60 ml/min/1.73 sqM) Est GFR (CKD-EPI)NonAf >90 (>60 ml/min/1.73 sqM) Glucose 91 (74-99) mg/dL Calcium 8.7 (8.4-10.2) mg/dL Total Bilirubin 0.3 (0.2-1.3) mg/dL AST 19 (14-36) U/L ALT 15 (4-34) U/L Alkaline Phosphatase 100 (38-126) U/L Troponin I (0.000-0.034) ng/mL Total Protein 6.4 (6.3-8.2) g/dL Albumin 3.5 (3.5-5.0) g/dL Influenza Type A (PCR) (Not Detectd) Influenza Type B (PCR) (Not Detectd) RSV (PCR) (Not Detectd) SARS-CoV-2 (PCR) (Not Detectd) 02/22/23 02/22/23 02/22/23 Range/Units 12:21 12:21 12:21 WBC (3.8-10.6) k/uL RBC (3.80-5.40) m/uL Hgb (11.4-16.0) gm/dL Hct (34.0-46.0) % MCV (80.0-100.0) fL MCH (25.0-35.0) pg MCHC (31.0-37.0) g/dL RDW (11.5-15.5) % Plt Count (150-450) k/uL MPV Neutrophils % % Lymphocytes % % Monocytes % % Eosinophils % % Basophils % % Neutrophils # (1.3-7.7) k/uL Lymphocytes # (1.0-4.8) k/uL Monocytes # (0-1.0) k/uL Eosinophils # (0-0.7) k/uL Basophils # (0-0.2) k/uL PT (10.0-12.5) sec INR (<1.2) APTT (22.0-30.0) sec D-Dimer 0.46 (<0.60) mg/L FEU Sodium (137-145) mmol/L Potassium (3.5-5.1) mmol/L Chloride (98-107) mmol/L Carbon Dioxide (22-30) mmol/L Anion Gap mmol/L BUN (7-17) mg/dL Creatinine (0.52-1.04) mg/dL Est GFR (CKD-EPI)AfAm (>60 ml/min/1.73 sqM) Est GFR (CKD-EPI)NonAf (>60 ml/min/1.73 sqM) Glucose (74-99) mg/dL Calcium (8.4-10.2) mg/dL Total Bilirubin (0.2-1.3) mg/dL AST (14-36) U/L ALT (4-34) U/L Alkaline Phosphatase (38-126) U/L Troponin I <0.012 (0.000-0.034) ng/mL Total Protein (6.3-8.2) g/dL Albumin (3.5-5.0) g/dL Influenza Type A (PCR) Not Detected (Not Detectd) Influenza Type B (PCR) Not Detected (Not Detectd) RSV (PCR) Not Detected (Not Detectd) SARS-CoV-2 (PCR) Not Detected (Not Detectd) Disposition <Blanca Wilkins - Last Filed: 02/22/23 12:58> Is patient prescribed a controlled substance at d/c from ED?: No Time of Disposition: 14:28 <Bryan Davila - Last Filed: 02/22/23 14:28> Clinical Impression: Dyspnea, Obesity Disposition: HOME SELF-CARE Condition: Fair Instructions (If sedation given, give patient instructions): Dyspnea (ED) Referrals: Scarlet Avila MD [Primary Care Provider] - 1-2 days
[2023-02-22 14:18] VITALS: RESP 18
[2023-02-22 14:40] VITALS: BP 131/84; PULSE 70
== END 2023-02-22 14:36 | disposition home or self-care (01) ==
LOC: EC 11:55 → SUPCPDRO 11:55 → EC 14:36
DX: R06.00 Dyspnea, unspecified (principal); E66.9 Obesity, unspecified; J45.909 Unspecified asthma, uncomplicated; K21.9 Gastro-esophageal reflux disease without esophagitis; I10 Essential (primary) hypertension; F31.9 Bipolar disorder, unspecified; Z68.43 Body mass index [BMI] 50.0-59.9, adult; Z87.891 Personal history of nicotine dependence; Z79.899 Other long term (current) drug therapy; Z20.822 Contact with and (suspected) exposure to COVID-19
CPT/HCPCS: 36415; 71046; 80053; 84484; 85025; 85379; 85610; 85730; 87636; 93005; 99285

== ENCOUNTER 2023-03-18 09:42 | Emergency (ER) | payer OTHER ==
[2023-03-18 10:14] VITALS: RESP 18
--- NOTE | 2023-03-18 10:52 | ED ---
URI HPI - General Chief Complaint: Upper Respiratory Infection Stated Complaint: Covid Expourse,w/Sinus Infection Time Seen by Provider: 03/18/23 10:51 Source: patient, RN notes reviewed Mode of arrival: ambulatory Limitations: no limitations - History of Present Illness Initial Comments: 47-year-old female with no significant past medical history presents the emergency department with a chief complaint of exposure to Covid. Patient is reporting symptoms of headache, cough, congestion patient reports recent exposure COVID exposure where she works. She denies any chest pain, palpitations, shortness of breath, nausea or vomiting, abdominal pain. - Related Data Home Medications Medication Instructions Recorded Confirmed Benztropine Mesylate [Cogentin] 0.5 mg PO HS 10/28/17 11/08/21 FLUoxetine HCL [PROzac] 40 mg PO BID 10/28/17 11/08/21 Pantoprazole [Protonix] 40 mg PO DAILY 02/09/21 11/08/21 buPROPion XL [Wellbutrin XL] 150 mg PO DAILY 02/09/21 11/08/21 ARIPiprazole [Abilify] 15 mg PO DAILY 11/08/21 11/08/21 Acetaminophen Tab [Tylenol Tab] 1,000 mg PO Q6H PRN 11/08/21 11/08/21 Multivitamins, Thera [Multivitamin 1 tab PO DAILY 11/08/21 11/08/21 (formulary)] Previous Rx's Medication Instructions Recorded Naproxen [Naprosyn] 375 mg PO Q12HR PRN #20 tablet 11/07/21 Nirmatrelvir/Ritonavir [Paxlovid 1 each PO BID #10 each 01/15/22 300-100 mg Pack (Eua)] Mag Hydrox/Aluminum Hyd/Simeth 10 ml PO Q4-6H PRN #355 ml 12/15/22 [Mylanta Maximum Strength Liq] Ondansetron Odt [Zofran Odt] 4 mg PO Q8HR PRN #20 tab 12/15/22 Promethazine/Dextromethorphan 5 ml PO Q4-6H PRN #473 ml 12/15/22 [Promethazine-Dm 6.25-15 mg/5Ml] Allergies Allergy/AdvReac Type Severity Reaction Status Date / Time No Known Allergies Allergy Verified 03/18/23 09:58 Review of Systems ROS Statement: Those systems with pertinent positive or pertinent negative responses have been documented in the HPI. ROS Other: All systems not noted in ROS Statement are negative. Past Medical History Past Medical History: GERD/Reflux, Hypertension Additional Past Medical History / Comment(s): sinus infections, pericarditis 2016, low vitamin D, states no pneumonia, History of Any Multi-Drug Resistant Organisms: MRSA Date of last positivie culture/infection: 2016 MDRO Source:: groin Past Surgical History: Cholecystectomy Past Psychological History: Bipolar, Schizoaffective Disorder Smoking Status: Former smoker Past Alcohol Use History: Occasional Past Drug Use History: None Reported - Past Family History Mother Family Medical History: No Reported History Father Family Medical History: Myocardial Infarction ([place]) General Exam - General Exam Comments Initial Comments: General: Alert, in no acute distress Head: atraumatic normocephalic. Eyes PERRL, EOMI intact, mucous membranes moist Respiratory: Lungs clear to auscultation bilaterally Cardiovascular: Heart rate regular rate Abdominal: Soft without guarding or rebound Extremities: Normal inspection with full range of motion and normal capillary refill Neuroogic: alert and oriented 3, CN II-XII intact, able to ambulate with steady gait Skin: warm dry and intact with normal color Limitations: no limitations Course Vital Signs 03/18/23 03/18/23 09:56 11:31 Temperature 98.8 F 98.6 F Pulse Rate 86 68 Respiratory 18 18 Rate Blood Pressure 102/69 135/91 O2 Sat by Pulse 98 99 Oximetry Medical Decision Making - Medical Decision Making Was pt. sent in by a medical professional or institution (, PA, CREATIVE SERVICES WRITER, urgent care, hospital, or fpc...) When possible be specific @ -[No] Did you speak to anyone other than the patient for history (EMS, parent, family, police, friend...)? What history was obtained from this source @ -[No] Did you review nursing and triage notes (agree or disagree)? Why? @ -[I reviewed and agree with nursing and triage notes] Were old charts reviewed (outside hosp., previous admission, EMS record, old EKG, old radiological studies, urgent care reports/EKG's, fpc records)? Report findings @ -[No old charts were reviewed] Differential Diagnosis (chest pain, altered mental status, abdominal pain women, abdominal pain men, vaginal bleeding, weakness, fever, dyspnea, syncope, headache, dizziness, GI bleed, back pain, seizure, CVA, palpatations, mental health, musculoskeletal)? @ -[not applicable] EKG interpreted by me (3pts min.). @ -[As above] X-rays interpreted by me (1pt min.). @ -[None done] CT interpreted by me (1pt min.). @ -[None done] U/S interpreted by me (1pt. min.). @ -[None done] What testing was considered but not performed or refused? (CT, X-rays, U/S, labs)? Why? @ -[None] What meds were considered but not given or refused? Why? @ -[None] Did you discuss the management of the patient with other professionals (professionals i.e. , PA, CREATIVE SERVICES WRITER, lab, RT, psych nurse, health care social worker, production consultant, teacher, chief science officer, piano case maker)? Give summary @ -[No] Was smoking cessation discussed for >3mins.? @ -[No] Was critical care preformed (if so, how long)? @ -[No] Were there social determinants of health that impacted care today? How? (Homelessness, low income, unemployed, alcoholism, drug addiction, transportation, low edu. Level, literacy, decrease access to med. care, fpc, rehab)? @ -[No] Was there de-escalation of care discussed even if they declined (Discuss DNR or withdrawal of care, Hospice)? DNR status @ -[No] What co-morbidities impacted this encounter? (DM, HTN, Smoking, COPD, CAD, Cancer, CVA, ARF, Chemo, Hep., AIDS, mental health diagnosis, sleep apnea, morbid obesity)? @ -[None] Was patient admitted / discharged? Hospital course, mention meds given and route, prescriptions, significant lab abnormalities, going to OR and other pertinent info. @ -Discharged. This is a pleasant 47 old female who presents the emergency department with cold exposure. Patient had a thorough history and physical performed. Physical exam essentially unremarkable. Patient afebrile. She is nontoxic and [id number]. Heart rate regular rate and rhythm, lungs are to auscultation bilaterally. Vital signs were negative. Patient was offered Tessalon Perles however she declined. Return precautions were discussed at length. Discharged in stable condition. Case discussed with Dr. thapa, ED attending agrees with plan of care Undiagnosed new problem with uncertain prognosis? @ -[No] Drug Therapy requiring intensive monitoring for toxicity (Heparin, Nitro, Insulin, Cardizem)? @ -[No] Were any procedures done? @ -[No] Diagnosis/symptom? @ -Encounter for COVID test Acute, or Chronic, or Acute on Chronic? @ -Acute Uncomplicated (without systemic symptoms) or Complicated (systemic symptoms)? @ -Uncomplicated Side effects of treatment? @ -[No] Exacerbation, Progression, or Severe Exacerbation? @ -[No] Poses a threat to life or bodily function? How? (Chest pain, [place], [place], pneumonia, PE, COPD, DKA, ARF, appy, cholecystitis, CVA, Diverticulitis, Homicidal, Suicidal, threat to staff... and all critical care pts) @ -Low likelihood - Lab Data Lab Results 03/18/23 Range/Units 09:59 Influenza Type A (PCR) Not Detected (Not Detectd) Influenza Type B (PCR) Not Detected (Not Detectd) RSV (PCR) Not Detected (Not Detectd) SARS-CoV-2 (PCR) Not Detected (Not Detectd) Disposition Clinical Impression: Cough, Congestion of nasal sinus Disposition: HOME SELF-CARE Condition: Stable Instructions (If sedation given, give patient instructions): Upper Respiratory Infection (ED) Additional Instructions: Please monitor symptoms closely Please be sure to stay hydrated Please take Tylenol or Motrin for fever control and generalized body aches Please return to the nearest emergency department if worsening symptoms or shortness of breath Is patient prescribed a controlled substance at d/c from ED?: No Referrals: Nonstaff,Physician [Primary Care Provider] - 1-2 days Forms: Area PCPs Time of Disposition: 11:15
[2023-03-18 11:47] VITALS: BP 135/91; PULSE 68; TEMP 98.6
== END 2023-03-18 11:33 | disposition home or self-care (01) ==
LOC: EC 09:42
DX: R05.9 Cough, unspecified (principal); R09.81 Nasal congestion; I10 Essential (primary) hypertension; K21.9 Gastro-esophageal reflux disease without esophagitis; F31.9 Bipolar disorder, unspecified; F25.9 Schizoaffective disorder, unspecified; Z20.822 Contact with and (suspected) exposure to COVID-19; Z79.899 Other long term (current) drug therapy; Z87.891 Personal history of nicotine dependence; Z90.49 Acquired absence of other specified parts of digestive tract
CPT/HCPCS: 87636; 99284

== ENCOUNTER 2023-03-30 11:40 | Emergency (ER) | payer OTHER ==
--- NOTE | 2023-03-30 11:56 | ED ---
Chest Pain HPI - General Source: patient, RN notes reviewed Mode of arrival: ambulatory Limitations: no limitations <Jose Wilkins - Last Filed: 03/30/23 11:55> - General Source: RN notes reviewed, old records reviewed Limitations: no limitations - History of Present Illness MD Complaint: chest pain -: days(s) Onset: during rest Pain Location: substernal, epigastric Quality: sharp Worsens With: nothing Anginal Symptoms: nausea Other Symptoms: acid taste in mouth Treatments Prior to Arrival: none <Napoleon Nguyễn - Last Filed: 04/05/23 16:38> - General Stated Complaint: acid reflux Time Seen by Provider: 03/30/23 11:55 - History of Present Illness Initial Comments: Patient's [age] female presented ER with chief complaint of epigastric pain. Patient states it started this morning while she was getting into her car on her way to [facility]. Patient does endorse shortness of breath. She does report that she had recent medication changes. (Jose Wilkins) This is a 47-year-old female to the ER for evaluation chest pain with reflux disease, worsen normal and worse on her way home from [facility]. Patient states she has high blood pressure but no heart history, she just concerned for recurrent reflux (Napoleon Nguyễn) - Related Data Home Medications Medication Instructions Recorded Confirmed Benztropine Mesylate [Cogentin] 0.5 mg PO HS 10/28/17 11/08/21 FLUoxetine HCL [PROzac] 40 mg PO BID 10/28/17 11/08/21 Pantoprazole [Protonix] 40 mg PO DAILY 02/09/21 11/08/21 buPROPion XL [Wellbutrin XL] 150 mg PO DAILY 02/09/21 11/08/21 ARIPiprazole [Abilify] 15 mg PO DAILY 11/08/21 11/08/21 Acetaminophen Tab [Tylenol Tab] 1,000 mg PO Q6H PRN 11/08/21 11/08/21 Multivitamins, Thera [Multivitamin 1 tab PO DAILY 11/08/21 11/08/21 (formulary)] Previous Rx's Medication Instructions Recorded Naproxen [Naprosyn] 375 mg PO Q12HR PRN #20 tablet 11/07/21 Nirmatrelvir/Ritonavir [Paxlovid 1 each PO BID #10 each 01/15/22 300-100 mg Pack (Eua)] Mag Hydrox/Aluminum Hyd/Simeth 10 ml PO Q4-6H PRN #355 ml 12/15/22 [Mylanta Maximum Strength Liq] Ondansetron Odt [Zofran Odt] 4 mg PO Q8HR PRN #20 tab 12/15/22 Promethazine/Dextromethorphan 5 ml PO Q4-6H PRN #473 ml 12/15/22 [Promethazine-Dm 6.25-15 mg/5Ml] Allergies Allergy/AdvReac Type Severity Reaction Status Date / Time No Known Allergies Allergy Verified 03/30/23 11:52 Review of Systems ROS Other: All systems not noted in ROS Statement are negative. <Jose Wilkins - Last Filed: 03/30/23 11:55> ROS Other: All systems not noted in ROS Statement are negative. <Napoleon Nguyễn - Last Filed: 04/05/23 16:38> ROS Statement: Those systems with pertinent positive or pertinent negative responses have been documented in the HPI. EKG Findings - EKG Comments: EKG Findings:: EKG is sinus 68 SC 150 QRS 93 QTc 460 - EKG Results: EKG: interpreted by ERMD <Napoleon Nguyễn - Last Filed: 04/05/23 16:38> Past Medical History Past Medical History: GERD/Reflux, Hypertension Additional Past Medical History / Comment(s): sinus infections, pericarditis 2016, low vitamin D, states no pneumonia,. sleep apnea History of Any Multi-Drug Resistant Organisms: MRSA Date of last positivie culture/infection: 2017 MDRO Source:: groin Past Surgical History: Cholecystectomy Past Psychological History: Bipolar, Schizoaffective Disorder Smoking Status: Former smoker Past Alcohol Use History: Occasional Past Drug Use History: None Reported - Past Family History Mother Family Medical History: No Reported History Father Family Medical History: Myocardial Infarction ([place]) <Jose Wilkins - Last Filed: 03/30/23 11:55> General Exam Limitations: no limitations <Jose Wilkins - Last Filed: 03/30/23 11:55> General appearance: alert, in no apparent distress Head exam: Present: atraumatic, normocephalic, normal inspection Eye exam: Present: normal appearance, PERRL, EOMI. Absent: scleral icterus, conjunctival injection, periorbital swelling ENT exam: Present: normal exam, mucous membranes moist Neck exam: Present: normal inspection. Absent: tenderness, meningismus, lymphadenopathy Respiratory exam: Present: normal lung sounds bilaterally. Absent: respiratory distress, wheezes, rales, rhonchi, stridor Cardiovascular Exam: Present: regular rate, normal rhythm, normal heart sounds. Absent: systolic murmur, diastolic murmur, rubs, gallop, clicks GI/Abdominal exam: Present: soft, normal bowel sounds. Absent: distended, tenderness, guarding, rebound, rigid Extremities exam: Present: normal inspection, full ROM, normal capillary refill. Absent: tenderness, pedal edema, joint swelling, calf tenderness Back exam: Present: normal inspection Neurological exam: Present: alert, oriented X3, CN II-XII intact Psychiatric exam: Present: normal affect, normal mood Skin exam: Present: warm, dry, intact, normal color. Absent: rash <Napoleon Nguyễn - Last Filed: 04/05/23 16:38> - General Exam Comments Initial Comments: Visual Physical Exam Vital signs reviewed General: Well-appearing, nontoxic, no acute distress. Head: Normocephalic, atraumatic Eyes: PERRLA, EOMI ENT: Airway patent Chest: Nonlabored breathing Skin: No visual rash, normal skin tone Neuro: Alert and oriented 3 Musculoskeletal: No gross abnormalities (Jose Wilkins) Course <Napoleon Nguyễn - Last Filed: 04/05/23 16:38> Vital Signs 03/30/23 03/30/23 03/30/23 11:50 15:59 16:00 Temperature 97.6 F Pulse Rate 73 Respiratory 16 Rate Blood Pressure 142/72 126/85 126/85 O2 Sat by Pulse 100 99 100 Oximetry 03/30/23 03/30/23 16:10 16:20 Temperature Pulse Rate 89 Respiratory 18 Rate Blood Pressure 110/62 124/72 O2 Sat by Pulse 100 99 Oximetry - Reevaluation(s) Reevaluation #1: 03/30/23 16:17 Medical records reviewed (Napoleon Nguyễn) Reevaluation #2: 03/30/23 16:17 Symptoms are unchanged Studies chest x-rays negative for acute (Napoleon Nguyễn) Reevaluation #3: 03/30/23 16:17 Patient informed of results and questions answered (Napoleon Nguyễn) Reevaluation #4: 03/30/23 16:17 Was pt. sent in by a medical professional or institution (, [facility], PROPOSAL MANAGER WRITER, urgent care, hospital, or shelter...) When possible be specific @ -no Did you speak to anyone other than the patient for history (EMS, parent, family, police, friend...)? What history was obtained from this source @ -no Did you review nursing and triage notes (agree or disagree)? Why? @ -agree Are old charts reviewed (outside hosp., previous admission, EMS record, old EKG, old radiological studies, urgent care reports/EKG's, shelter records)? Report findings @ -yes Differential Diagnosis (chest pain, altered mental status, abdominal pain women, abdominal pain men, vaginal bleeding, weakness, fever, dyspnea, syncope, headache, dizziness, GI bleed, back pain, seizure, CVA, palpatations, mental health, musculoskeletal)? @ -prior EKG interpreted by me (3pts min.). @ -yes X-rays interpreted by me (1pt min.). @ -yes. For acute disease CT interpreted by me (1pt min.). @ -no U/S interpreted by me (1pt. min.). @ -no What testing was considered but not performed or refused? (CT, X-rays, U/S, labs)? Why? @ -none What meds were considered but not given or refused? Why? @ -none Did you discuss the management of the patient with other professionals (professionals i.e. [facility] [place], PROPOSAL MANAGER WRITER, lab, RT, psych nurse, social worker school, admiralty lawyer, teacher, combat systems officer, manager of case)? Give summary @ -no Was smoking cessation discussed for >3mins.? @ -no Was critical care preformed (if so, how long)? @ -no Were there social determinants of health that impacted care today? How? (Homelessness, low income, unemployed, alcoholism, drug addiction, transportation, low edu. Level, literacy, decrease access to med. care, custodial, rehab)? @ -none Was there de-escalation of care discussed even if they declined (Discuss DNR or withdrawal of care, Hospice)? DNR status @ -no What co-morbidities impacted this encounter? (DM, HTN, Smoking, COPD, CAD, Cancer, CVA, ARF, Chemo, Hep., AIDS, mental health diagnosis, sleep apnea, morbid obesity)? @ -none Was patient admitted / discharged? Hospital course, mention meds given and route, prescriptions, significant lab abnormalities, going to OR and other pertinent info. @ - 47 female to the emergency department for evaluation of abnormal pain positive for gastritis and patient can be discharged home Discharge Undiagnosed new problem with uncertain prognosis? @ -no Drug Therapy requiring intensive monitoring for toxicity (Heparin, Nitro, Insulin, Cardizem)? @ -no Were any procedures done? @ -no Diagnosis/symptom? @ -Reflux and gastritis Acute, or Chronic, or Acute on Chronic? @ -Acute Uncomplicated (without systemic symptoms) or Complicated (systemic symptoms)? @ -Complicated Side effects of treatment? @ -no Exacerbation, Progression, or Severe Exacerbation? @ -exacerbation Poses a threat to life or bodily function? How? (Chest pain, [place], [place], pneumonia, PE, COPD, DKA, ARF, appy, cholecystitis, CVA, Diverticulitis, Homicidal, Suicidal, threat to staff... and all critical care pts) @ -no (Napoleon Nguyễn) Reevaluation #5: 03/30/23 16:17 Differential Chest Pain: Stable Angina, Unstable Angina, STEMI, NSTEMI Aortic Dissection, Pneumothorax, Musculoskeletal, Esophageal Spasm GERD, Cholecystitis, Pancreatitis, Zoster, this is not meant to be an all-inclusive list. (Napoleon Nguyễn) Chest Pain MDM <Jose Wilkins - Last Filed: 03/30/23 11:55> <Napoleon Nguyễn - Last Filed: 04/05/23 16:38> - MDM I performed the quick note portion of the exam. Electronically signed by Jose Wilkins PA-C (Jose Wilkins) 47 female to the emergency department for evaluation of abnormal pain positive for gastritis and patient can be discharged home (Napoleon Nguyễn) Disposition <Jose Wilkins - Last Filed: 03/30/23 11:55> Is patient prescribed a controlled substance at d/c from ED?: No Time of Disposition: 16:00 <Napoleon Nguyễn - Last Filed: 04/05/23 16:38> Clinical Impression: Chest pain, Gastritis Disposition: HOME SELF-CARE Condition: Good Instructions (If sedation given, give patient instructions): Gastritis (ED), GERD (Gastroesophageal Reflux Disease) in Children (ED) Referrals: Nonstaff,Physician [Primary Care Provider] - 1-2 days
[2023-03-30 11:57] VITALS: TEMP 97.6
[2023-03-30 12:45] LABS: Basophils % (A) 0 %; Eosinophils # (A) 0.2 k/uL (0-0.7); Eosinophils % (A) 4 %; HCT 35.3 % (34.0-46.0); HGB 12.1 gm/dL (11.4-16.0); Lymphocytes % (A) 16 %; MCH 28.7 pg (25.0-35.0); MCHC 34.4 g/dL (31.0-37.0); MCV 83.5 fL (80.0-100.0); Monocytes # (A) 0.2 k/uL (0-1.0); Monocytes % (A) 3 %; Neutrophils # (A) 4.7 k/uL (1.3-7.7); Neutrophils % (A) 76 %; Platelet Count 309 k/uL (150-450); RBC 4.23 m/uL (3.80-5.40); RDW 13.6 % (11.5-15.5); WBC 6.2 k/uL (3.8-10.6)
[2023-03-30 12:51] LABS: ALT 14 U/L (4-34); AST 19 U/L (14-36); African American GFR (CKD) >90 (>60 ml/min/1.73 sqM); Albumin 3.6 g/dL (3.5-5.0); Alkaline Phosphatase 93 U/L (38-126); Anion Gap 9 mmol/L; Blood Urea Nitrogen 9 mg/dL (7-17); Calcium 8.4 mg/dL (8.4-10.2); Carbon Dioxide 23 mmol/L (22-30); Chloride 105 mmol/L (98-107); Glucose 81 mg/dL (74-99); Magnesium 2.2 mg/dL (1.6-2.3); Non-African American GFR(CKD) >90 (>60 ml/min/1.73 sqM); Potassium 4.5 mmol/L (3.5-5.1); Sodium 137 mmol/L (137-145); Total Bilirubin 0.4 mg/dL (0.2-1.3); Total Protein 6.6 g/dL (6.3-8.2)
--- NOTE | 2023-03-30 12:51 | XR ---
EXAMINATION TYPE: XR chest 2V DATE OF EXAM: 03/30/2023 COMPARISON: 02/22/2023 INDICATION: Chest pain TECHNIQUE: Frontal and lateral views of the chest are obtained. FINDINGS: The heart size is normal. The pulmonary vasculature is normal. The lungs are clear. IMPRESSION: 1. No acute pulmonary process.
[2023-03-30 12:58] LABS: INR 0.9 (<1.2); Prothrombin Time 10.4 sec (10.0-12.5)
[2023-03-30] MEDS ORDERED: FAMOTIDINE 20 MG/2 ML VIAL IV STA (16:03)
[2023-03-30] MEDS ORDERED: MAG HYDROX/AL HYDROX/SIMETH 30 ML, HYOSCYAMINE ELIXIR 10 ML, LIDOCAINE 2% GLYDO JELLY 1... PO STA ×3 (16:03)
[2023-03-30] MEDS ORDERED: FAMOTIDINE 20 MG TAB PO STA (16:20)
[2023-03-30 16:44] VITALS: BP 124/72; PULSE 89; RESP 18
== END 2023-03-30 16:45 | disposition home or self-care (01) ==
LOC: EC 11:40
DX: K29.70 Gastritis, unspecified, without bleeding (principal); R07.2 Precordial pain; I10 Essential (primary) hypertension; K21.9 Gastro-esophageal reflux disease without esophagitis; F31.9 Bipolar disorder, unspecified; Z87.891 Personal history of nicotine dependence; Z79.899 Other long term (current) drug therapy
CPT/HCPCS: 36415; 71046; 80053; 83735; 84484; 85025; 85379; 85610; 85730; 93005; 99284

== ENCOUNTER 2023-05-17 14:49 | Emergency (ER) | payer OTHER ==
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
[2023-05-17 15:56] VITALS: BP 118/80; PULSE 85; RESP 16; TEMP 98.5
[2023-05-17 18:15] LABS: HCT 33.5 % (34.0-46.0); MCH 27.6 pg (25.0-35.0); MCHC 32.8 g/dL (31.0-37.0); MCV 84.1 fL (80.0-100.0); Mean Platelet Volume 6.8; Platelet Count 267 k/uL (150-450); RBC 3.99 m/uL (3.80-5.40); RDW 14.6 % (11.5-15.5); WBC 6.9 k/uL (3.8-10.6)
[2023-05-17 18:28] LABS: ALT 23 U/L (4-34); AST 28 U/L (14-36); African American GFR (CKD) >90 (>60 ml/min/1.73 sqM); Albumin 3.7 g/dL (3.5-5.0); Alkaline Phosphatase 93 U/L (38-126); Anion Gap 3 mmol/L; Blood Urea Nitrogen 13 mg/dL (7-17); Calcium 8.8 mg/dL (8.4-10.2); Carbon Dioxide 28 mmol/L (22-30); Chloride 106 mmol/L (98-107); Glucose 101 mg/dL (74-99); Non-African American GFR(CKD) >90 (>60 ml/min/1.73 sqM); Potassium 4.3 mmol/L (3.5-5.1); Sodium 137 mmol/L (137-145); Total Bilirubin 0.3 mg/dL (0.2-1.3); Total Protein 6.5 g/dL (6.3-8.2)
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
[2023-05-17 21:31] LABS: Appearance,Urine Clear (Clear); Bacteria,Urine Rare /hpf; Bilirubin,Urine Negative (Negative); Blood,Urine Negative (Negative); Color,Urine Colorless; Glucose,Urine (UA) Negative (Negative); Ketones,Urine Negative (Negative); Leukocyte Esterase,Urine Moderate (Negative); Nitrite,Urine Negative (Negative); Protein,Urine Negative (Negative); RBC,Urine 1 /hpf (0-5); Specific Gravity,Urine 1.029 (1.001-1.035); Squamous Epithelial Cell,Urine 6 /hpf (0-4); Urobilinogen,Urine <2.0 mg/dL (<2.0); WBC,Urine 8 /hpf (0-5)
[2023-05-17] MEDS: HYDROcodone/APAP 5-325MG 1 EACH TAB PO STA (22:50)
[2023-05-17] MEDS: ACET/COD 300 MG/30 MG STARTER PACK 6 TAB BTL PO STA (23:35)
== END 2023-05-17 23:35 | disposition home or self-care (01) ==
LOC: EC 14:49
DX: S30.1XXA Contusion of abdominal wall, initial encounter (principal); K21.9 Gastro-esophageal reflux disease without esophagitis; I10 Essential (primary) hypertension; F31.9 Bipolar disorder, unspecified; Z79.899 Other long term (current) drug therapy; Z87.891 Personal history of nicotine dependence; X58.XXXA Exposure to other specified factors, initial encounter
CPT/HCPCS: 99284; 36415; 80053; 85027; 81001; 74177; Q9967

== ENCOUNTER 2023-09-02 19:29 | Emergency (ER) | payer OTHER ==
--- NOTE | 2023-09-02 19:52 | ED ---
Headache HPI - General Source: RN notes reviewed, old records reviewed Mode of arrival: ambulatory Limitations: no limitations - History of Present Illness MD Complaint: headache, "migraine" -: days(s) Onset Description: gradual Location: right, left, frontal, temporal Severity: moderate Severity scale (1-10): 6 Quality: aching, throbbing, pulsatile Consistency: constant Improves With: nothing Worsens With: none <Napoleon Nguyễn - Last Filed: 09/02/23 21:44> <Roman Osborne - Last Filed: 09/03/23 00:49> - General Chief Complaint: Headache Stated Complaint: Headache,Lightheaded Time Seen by Provider: 09/02/23 19:49 - History of Present Illness Initial Comments: This is a 48-year-old female to the ER for what she believes is dehydration 1 month status post gastric bypass dehydration abdominal pain nausea vomiting and persistent headache with history of migraines. (Napoleon Nguyễn) - Related Data Home Medications Medication Instructions Recorded Confirmed Benztropine Mesylate [Cogentin] 0.5 mg PO HS 10/28/17 11/08/21 FLUoxetine HCL [PROzac] 40 mg PO BID 10/28/17 11/08/21 Pantoprazole [Protonix] 40 mg PO DAILY 02/09/21 11/08/21 buPROPion XL [Wellbutrin XL] 150 mg PO DAILY 02/09/21 11/08/21 ARIPiprazole [Abilify] 15 mg PO DAILY 11/08/21 11/08/21 Acetaminophen Tab [Tylenol Tab] 1,000 mg PO Q6H PRN 11/08/21 11/08/21 Multivitamins, Thera [Multivitamin 1 tab PO DAILY 11/08/21 11/08/21 (formulary)] Previous Rx's Medication Instructions Recorded Naproxen [Naprosyn] 375 mg PO Q12HR PRN #20 tablet 11/07/21 Nirmatrelvir/Ritonavir [Paxlovid 1 each PO BID #10 each 01/15/22 300-100 mg Pack (Eua)] Mag Hydrox/Aluminum Hyd/Simeth 10 ml PO Q4-6H PRN #355 ml 12/15/22 [Mylanta Maximum Strength Liq] Ondansetron Odt [Zofran Odt] 4 mg PO Q8HR PRN #20 tab 12/15/22 Promethazine/Dextromethorphan 5 ml PO Q4-6H PRN #473 ml 12/15/22 [Promethazine-Dm 6.25-15 mg/5Ml] Allergies Allergy/AdvReac Type Severity Reaction Status Date / Time NSAIDS (Non-Steroidal Allergy Unknown Verified 09/02/23 19:34 Anti-Inflamma kiwi AdvReac Anaphylaxis Verified 09/02/23 19:34 Review of Systems ROS Other: All systems not noted in ROS Statement are negative. <Napoleon Nguyễn - Last Filed: 09/02/23 21:44> ROS Other: All systems not noted in ROS Statement are negative. <Roman Osborne - Last Filed: 09/03/23 00:49> ROS Statement: Those systems with pertinent positive or pertinent negative responses have been documented in the HPI. Past Medical History Past Medical History: GERD/Reflux, Hypertension Additional Past Medical History / Comment(s): sinus infections, pericarditis 2016, low vitamin D, states no pneumonia,. sleep apnea History of Any Multi-Drug Resistant Organisms: MRSA Date of last positivie culture/infection: 2016 MDRO Source:: groin Past Surgical History: Bariatric Surgery, Cholecystectomy Past Psychological History: Bipolar, Schizoaffective Disorder Smoking Status: Former smoker Past Alcohol Use History: Occasional Past Drug Use History: None Reported - Past Family History Mother Family Medical History: No Reported History Father Family Medical History: Myocardial Infarction ([place]) <Napoleon Nguyễn - Last Filed: 09/02/23 21:44> General Exam Limitations: no limitations General appearance: alert, in no apparent distress Head exam: Present: atraumatic, normocephalic, normal inspection Eye exam: Present: normal appearance, PERRL, EOMI. Absent: scleral icterus, conjunctival injection, periorbital swelling ENT exam: Present: normal exam, mucous membranes moist Neck exam: Present: normal inspection. Absent: tenderness, meningismus, lymphadenopathy Respiratory exam: Present: normal lung sounds bilaterally. Absent: respiratory distress, wheezes, rales, rhonchi, stridor Cardiovascular Exam: Present: regular rate, normal rhythm, normal heart sounds. Absent: systolic murmur, diastolic murmur, rubs, gallop, clicks GI/Abdominal exam: Present: soft, normal bowel sounds. Absent: distended, tenderness, guarding, rebound, rigid Extremities exam: Present: normal inspection, full ROM, normal capillary refill. Absent: tenderness, pedal edema, joint swelling, calf tenderness Back exam: Present: normal inspection Neurological exam: Present: alert, oriented X3, CN II-XII intact Psychiatric exam: Present: normal affect, normal mood Skin exam: Present: warm, dry, intact, normal color. Absent: rash <Napoleon Nguyễn - Last Filed: 09/02/23 21:44> Course <Napoleon Nguyễn - Last Filed: 09/02/23 21:44> Vital Signs 09/02/23 09/02/23 09/02/23 19:30 21:34 23:57 Temperature 98.0 F 98.5 F 98.3 F Pulse Rate 64 72 661 H Respiratory 20 20 13 Rate Blood Pressure 127/77 129/80 107/72 O2 Sat by Pulse 96 97 98 Oximetry - Reevaluation(s) Reevaluation #1: 09/02/23 19:52 Records reviewed (Napoleon Nguyễn) Reevaluation #4: Was pt. sent in by a medical professional or institution (, PA, [employer], urgent care, hospital, or half-way...) When possible be specific @ -no Did you speak to anyone other than the patient for history (EMS, parent, family, police, friend...)? What history was obtained from this source @ -no Did you review nursing and triage notes (agree or disagree)? Why? @ -agree Are old charts reviewed (outside hosp., previous admission, EMS record, old EKG, old radiological studies, urgent care reports/EKG's, half-way records)? Report findings @ -yes Differential Diagnosis (chest pain, altered mental status, abdominal pain women, abdominal pain men, vaginal bleeding, weakness, fever, dyspnea, syncope, headache, dizziness, GI bleed, back pain, seizure, CVA, palpatations, mental health, musculoskeletal)? @ -prior EKG interpreted by me (3pts min.). @ -yes X-rays interpreted by me (1pt min.). @ -yes negative for acute disease CT interpreted by me (1pt min.). @ -no U/S interpreted by me (1pt. min.). @ -no What testing was considered but not performed or refused? (CT, X-rays, U/S, labs)? Why? @ -none What meds were considered but not given or refused? Why? @ -none Did you discuss the management of the patient with other professionals (professionals i.e. Dr., PA, [employer], lab, RT, psych nurse, social insurance adviser, divorce lawyer, teacher, financial aid officer, director of casework department)? Give summary @ -no Was smoking cessation discussed for >3mins.? @ -no Was critical care preformed (if so, how long)? @ -no Were there social determinants of health that impacted care today? How? (Homelessness, low income, unemployed, alcoholism, drug addiction, tra nsportation, low edu. Level, literacy, decrease access to med. care, nursing home, rehab)? @ -none Was there de-escalation of care discussed even if they declined (Discuss DNR or withdrawal of care, Hospice)? DNR status @ -no What co-morbidities impacted this encounter? (DM, HTN, Smoking, COPD, CAD, Cance r, CVA, ARF, Chemo, Hep., AIDS, mental health diagnosis, sleep apnea, morbid obesity)? @ -none Was patient admitted / discharged? Hospital course, mention meds given and route, prescriptions, significant lab abnormalities, going to OR and other pertinent info. @ - Undiagnosed new problem with uncertain prognosis? @ -no Drug Therapy requiring intensive monitoring for toxicity (Heparin, Nitro, I nsulin, Cardizem)? @ -no Were any procedures done? @ -no Diagnosis/symptom? @ - Acute, or Chronic, or Acute on Chronic? @ -Acute Uncomplicated (without systemic symptoms) or Complicated (systemic symptoms)? @ -Complicated Side effects of treatment? @ -no Exacerbation, Progression, or Severe Exacerbation? @ -exacerbation Poses a threat to life or bodily function? How? (Chest pain, [place], [place], pneumonia, PE, COPD, DKA, ARF, appy, cholecystitis, CVA, Diverticulitis, Homicidal, Suicidal, threat to staff... and all critical care pts) @ -yes (Napoleon Nguyễn) Medical Decision Making - Lab Data Result diagrams: 09/02/23 20:39 09/02/23 20:39 - EKG Data -: EKG Interpreted by Me (EKG Sinus 69 MT 137 QRS 87 QTc 445) <Napoleon Nguyễn - Last Filed: 09/02/23 21:44> - Lab Data Result diagrams: 09/02/23 20:39 09/02/23 20:39 <Roman Osborne - Last Filed: 09/03/23 00:49> - Medical Decision Making Patient signed out to me pending results of CT imaging. Has been complaining of epigastric abdominal discomfort as well as lightheadedness. Has recent gastric bypass surgery approximately 1 month ago. Follows up with surgeon at [facility]. Labs unremarkable. Patient has received pain medications and IV fluids. Patient is feeling improved. CT imaging is interpreted by myself revealed no obvious acute intra-abdominal process. I discussed the results with the patient. She is feeling improved. No lower abdominal pain. Upper abdominal pain improved as well. She will be discharged home at this time with strict return precautions. Recommended following her normal diet and taking a break from water aerobics. I recommended she contact her surgeon tomorrow and see if he wants to see her sooner than her next scheduled appointment. Patient was in agreement this plan. I instructed the patient to follow up with their PCP in the next 1-3 days. I explained that the patient should return to the emergency department if they experience any worsening symptoms. Strict return precautions were discussed with the patient. The patient expressed understanding of these instructions. I answered all questions that the patient had. The patient was discharged home in good condition with their prescriptions and follow up information. Diagnosis/symptom? @ -Headache, abdominal pain of unknown etiology Acute, or Chronic, or Acute on Chronic? @ -Acute Uncomplicated (without systemic symptoms) or Complicated (systemic symptoms)? @ -Uncomplicated Side effects of treatment? @ -None Exacerbation, Progression, or Severe Exacerbation] @ -No Poses a threat to life or bodily function? @ -Unlikely (Roman Osborne) - Lab Data Lab Results 09/02/23 09/02/23 09/02/23 Range/Units 20:39 20:39 20:39 WBC 4.4 (3.8-10.6) k/uL RBC 4.68 (3.80-5.40) m/uL Hgb 12.2 (11.4-16.0) gm/dL Hct 38.8 (34.0-46.0) % MCV 83.1 (80.0-100.0) fL MCH 26.1 (25.0-35.0) pg MCHC 31.4 (31.0-37.0) g/dL RDW 16.8 H (11.5-15.5) % Plt Count 202 (150-450) k/uL MPV 7.7 Neutrophils % 70 % Lymphocytes % 18 % Monocytes % 5 % Eosinophils % 5 % Basophils % 0 % Neutrophils # 3.1 (1.3-7.7) k/uL Lymphocytes # 0.8 L (1.0-4.8) k/uL Monocytes # 0.2 (0-1.0) k/uL Eosinophils # 0.2 (0-0.7) k/uL Basophils # 0.0 (0-0.2) k/uL Anisocytosis Slight PT 11.1 (10.0-12.5) sec INR 1.0 (<1.2) APTT 26.6 (22.0-30.0) sec D-Dimer (<0.60) mg/L FEU Sodium 137 (137-145) mmol/L Potassium 4.1 (3.5-5.1) mmol/L Chloride 106 (98-107) mmol/L Carbon Dioxide 26 (22-30) mmol/L Anion Gap 5 mmol/L BUN 11 (7-17) mg/dL Creatinine 0.65 (0.52-1.04) mg/dL Est GFR (CKD-EPI)AfAm >90 (>60 ml/min/1.73 sqM) Est GFR (CKD-EPI)NonAf >90 (>60 ml/min/1.73 sqM) Glucose 83 (74-99) mg/dL Plasma Lactic Acid Phani (0.7-2.0) mmol/L Calcium 8.7 (8.4-10.2) mg/dL Total Bilirubin 0.4 (0.2-1.3) mg/dL AST 21 (14-36) U/L ALT 15 (4-34) U/L Alkaline Phosphatase 96 (38-126) U/L Total Protein 6.0 L (6.3-8.2) g/dL Albumin 3.5 (3.5-5.0) g/dL Amylase 42 (30-110) U/L Lipase 82 (23-300) U/L Urine Color Urine Appearance (Clear) Urine pH (5.0-8.0) Ur Specific [place] (1.001-1.035) Urine Protein (Negative) Urine Glucose (UA) (Negative) Urine Ketones (Negative) Urine Blood (Negative) Urine Nitrite (Negative) Urine Bilirubin (Negative) Urine Urobilinogen (<2.0) mg/dL Ur Leukocyte Esterase (Negative) 09/02/23 09/02/23 09/02/23 Range/Units 20:39 20:39 22:55 WBC (3.8-10.6) k/uL RBC (3.80-5.40) m/uL Hgb (11.4-16.0) gm/dL Hct (34.0-46.0) % MCV (80.0-100.0) fL MCH (25.0-35.0) pg MCHC (31.0-37.0) g/dL RDW (11.5-15.5) % Plt Count (150-450) k/uL MPV Neutrophils % % Lymphocytes % % Monocytes % % Eosinophils % % Basophils % % Neutrophils # (1.3-7.7) k/uL Lymphocytes # (1.0-4.8) k/uL Monocytes # (0-1.0) k/uL Eosinophils # (0-0.7) k/uL Basophils # (0-0.2) k/uL Anisocytosis PT (10.0-12.5) sec INR (<1.2) APTT (22.0-30.0) sec D-Dimer 0.48 (<0.60) mg/L FEU Sodium (137-145) mmol/L Potassium (3.5-5.1) mmol/L Chloride (98-107) mmol/L Carbon Dioxide (22-30) mmol/L Anion Gap mmol/L BUN (7-17) mg/dL Creatinine (0.52-1.04) mg/dL Est GFR (CKD-EPI)AfAm (>60 ml/min/1.73 sqM) Est GFR (CKD-EPI)NonAf (>60 ml/min/1.73 sqM) Glucose (74-99) mg/dL Plasma Lactic Acid Phani 0.9 (0.7-2.0) mmol/L Calcium (8.4-10.2) mg/dL Total Bilirubin (0.2-1.3) mg/dL AST (14-36) U/L ALT (4-34) U/L Alkaline Phosphatase (38-126) U/L Total Protein (6.3-8.2) g/dL Albumin (3.5-5.0) g/dL Amylase (30-110) U/L Lipase (23-300) U/L Urine Color Colorless Urine Appearance Clear (Clear) Urine pH 5.5 (5.0-8.0) Ur Specific [place] >1.050 H (1.001-1.035) Urine Protein Negative (Negative) Urine Glucose (UA) Negative (Negative) Urine Ketones 1+ H (Negative) Urine Blood Negative (Negative) Urine Nitrite Negative (Negative) Urine Bilirubin Negative (Negative) Urine Urobilinogen <2.0 (<2.0) mg/dL Ur Leukocyte Esterase Negative (Negative) Disposition <Napoleon Nguyễn - Last Filed: 09/02/23 21:44> Is patient prescribed a controlled substance at d/c from ED?: No Time of Disposition: 00:48 <Roman Osborne - Last Filed: 09/03/23 00:49> Clinical Impression: Headache, Abdominal pain of unknown etiology Disposition: HOME SELF-CARE Condition: Good Instructions (If sedation given, give patient instructions): Abdominal Pain (ED) Referrals: Scarlet Avila MD [Primary Care Provider] - 1-2 days
[2023-09-02] MEDS: SODIUM CHLORIDE 0.9% 1,000 ML IV STA ×2 (20:27→20:28)
[2023-09-02] MEDS: PANTOPRAZOLE 40 MG/10 ML VIAL IVP STA (20:39)
[2023-09-02] MEDS: ONDANSETRON 4 MG/2 ML VIAL IVP STA (20:40)
[2023-09-02] MEDS: SODIUM CHLORIDE 0.9% 500 ML 500 ML IV STA (20:40)
[2023-09-02] MEDS: KETOROLAC 15 MG/ML 1 ML VIAL IVP STA (20:40)
[2023-09-02] MEDS: HYDROmorphone 1 MG/ML 1 ML SYRINGE IVP STA (20:40)
[2023-09-02 20:53] LABS: Anisocytosis Slight; Basophils % (A) 0 %; Eosinophils # (A) 0.2 k/uL (0-0.7); Eosinophils % (A) 5 %; HCT 38.8 % (34.0-46.0); HGB 12.2 gm/dL (11.4-16.0); Lymphocytes # (A) 0.8 k/uL (1.0-4.8); Lymphocytes % (A) 18 %; MCH 26.1 pg (25.0-35.0); MCHC 31.4 g/dL (31.0-37.0); MCV 83.1 fL (80.0-100.0); Mean Platelet Volume 7.7; Monocytes # (A) 0.2 k/uL (0-1.0); Monocytes % (A) 5 %; Neutrophils # (A) 3.1 k/uL (1.3-7.7); Neutrophils % (A) 70 %; Platelet Count 202 k/uL (150-450); RBC 4.68 m/uL (3.80-5.40); RDW 16.8 % (11.5-15.5); WBC 4.4 k/uL (3.8-10.6)
--- NOTE | 2023-09-02 20:57 | XR ---
EXAMINATION TYPE: XR chest 1V portable DATE OF EXAM: 09/02/2023 8:53 PM CLINICAL INDICATION:Female, 48 years old with history of abdominal pain; [facility] COMPARISON: Chest radiographs from 03/30/2023 TECHNIQUE: XR chest 1V portable Frontal view of the chest. FINDINGS: Lungs/Pleura: Subsegmental atelectasis present in the lung bases. No pleural effusion or pneumothorax . Pulmonary vascularity: Unremarkable. Heart/mediastinum: Cardiomediastinal silhouette is unremarkable. Musculoskeletal: No acute osseous pathology. IMPRESSION: No acute cardiopulmonary disease/process.
[2023-09-02 21:05] LABS: ALT 15 U/L (4-34); AST 21 U/L (14-36); African American GFR (CKD) >90 (>60 ml/min/1.73 sqM); Albumin 3.5 g/dL (3.5-5.0); Alkaline Phosphatase 96 U/L (38-126); Amylase 42 U/L (30-110); Anion Gap 5 mmol/L; Blood Urea Nitrogen 11 mg/dL (7-17); Calcium 8.7 mg/dL (8.4-10.2); Carbon Dioxide 26 mmol/L (22-30); Chloride 106 mmol/L (98-107); Glucose 83 mg/dL (74-99); Lipase 82 U/L (23-300); Non-African American GFR(CKD) >90 (>60 ml/min/1.73 sqM); Potassium 4.1 mmol/L (3.5-5.1); Sodium 137 mmol/L (137-145); Total Bilirubin 0.4 mg/dL (0.2-1.3)
[2023-09-02 21:06] LABS: Partial Thromboplastin Time 26.6 sec (22.0-30.0); Prothrombin Time 11.1 sec (10.0-12.5)
[2023-09-02 23:24] LABS: Appearance,Urine Clear (Clear); Bilirubin,Urine Negative (Negative); Blood,Urine Negative (Negative); Color,Urine Colorless; Glucose,Urine (UA) Negative (Negative); Ketones,Urine 1+ (Negative); Leukocyte Esterase,Urine Negative (Negative); Nitrite,Urine Negative (Negative); PH, Urine 5.5 (5.0-8.0); Protein,Urine Negative (Negative); Urobilinogen,Urine <2.0 mg/dL (<2.0)
[2023-09-02 23:26] LABS: Specific Gravity,Urine >1.050 (1.001-1.035)
[2023-09-02] MEDS: MAG HYDROX/AL HYDROX/SIMETH 30 ML, HYOSCYAMINE ELIXIR 10 ML, LIDOCAINE VISCOUS 2% 10 ML PO STA (23:36)
[2023-09-02 23:58] VITALS: RESP 13
--- NOTE | 2023-09-03 00:08 | CT ---
EXAM: CT Abdomen and Pelvis With Intravenous Contrast CLINICAL HISTORY: ITS.REASON CT Reason: abdominal pain TECHNIQUE: Axial computed tomography images of the abdomen and pelvis with intravenous contrast. CTDI is 45.7 mGy and DLP is 2098.1 mGy-cm. This CT exam was performed using one or more of the following dose reduction techniques: automated exposure control, adjustment of the mA and/or kV according to patient size, and/or use of iterative reconstruction technique. COMPARISON: CT abdomen and pelvis 05/17/2023. FINDINGS: Lung bases: Unremarkable. No mass. No consolidation. ABDOMEN: Liver: Unremarkable. No mass. Gallbladder and bile ducts: Cholecystectomy. No ductal dilation. Pancreas: Unremarkable. No mass. No ductal dilation. Spleen: Unremarkable. No splenomegaly. Adrenals: Unremarkable. No mass. Kidneys and ureters: Unremarkable. No solid mass. No hydronephrosis. Stomach and bowel: Monica-en-Y gastric bypass. No obstruction of the jejunojejunostomy. No mucosal thickening. PELVIS: Appendix: Mild fat stranding adjacent to the cecum. No appendix is visualized. This may indicate previous inflammation of old appendicitis. Correlate clinically. Bladder: Unremarkable. No mass. Reproductive: Unremarkable as visualized. ABDOMEN and PELVIS: Intraperitoneal space: Unremarkable. No free air. No significant fluid collection. Bones/joints: No acute fracture. No dislocation. Soft tissues: Unremarkable. Vasculature: Unremarkable. No abdominal aortic aneurysm. Lymph nodes: Unremarkable. No enlarged lymph nodes. IMPRESSION: 1. Mild fat stranding adjacent to the cecum. No appendix is visualized. This may indicate previous inflammation of old appendicitis. Correlate clinically. 2. Cholecystectomy. 3. Monica-en-Y gastric bypass. No obstruction of the jejunojejunostomy.
[2023-09-03 01:14] VITALS: BP 106/74; PULSE 77; TEMP 98.9
== END 2023-09-03 01:12 | disposition home or self-care (01) ==
LOC: SUPCPDRO 19:29 → EC 19:29
DX: R51.9 Headache, unspecified (principal); R10.13 Epigastric pain; Z91.018 Allergy to other foods; Z88.6 Allergy status to analgesic agent; Z87.891 Personal history of nicotine dependence; Z98.84 Bariatric surgery status; Z90.49 Acquired absence of other specified parts of digestive tract
CPT/HCPCS: 36415; 93005; 85379; 80053; 82150; 83605; 83690; 85025; 85610; 85730; 81003; 71045; 74177; 99284; 96374; 96375 ×2; 96361 ×4; J2405; J1170; C9113; Q9967

== ENCOUNTER 2023-09-07 00:14 | Emergency (ER) | payer OTHER ==
[2023-09-07 00:26] VITALS: RESP 18; TEMP 98.3
--- NOTE | 2023-09-07 01:02 | ED ---
Nausea/Vomiting/Diarrhea HPI - General Chief complaint: Nausea/Vomiting/Diarrhea Stated complaint: NV Time Seen by Provider: 09/07/23 00:31 Source: patient, RN notes reviewed, old records reviewed Mode of arrival: ambulatory Limitations: no limitations - History of Present Illness Initial comments: This is a 48-year-old female to the ER for evaluation of severe abdominal pain. Patient is severe and persistent abdominal pain with nausea vomiting here in the ER after having some red lobster today. This is a change in advance her diet she has a recent gastric bypass patient who is in feeling otherwise well with no fevers diarrhea or other complaints MD complaint: nausea, vomiting, diarrhea -: days(s) Description of Vomiting: food contents Location: diffuse Radiation: none Severity: moderate Severity scale (1-10): 5 Quality: stabbing Consistency: intermittent Improves with: none Worsens with: none Associated Symptoms: loss of appetite, nausea/vomiting, weakness - Related Data Home Medications Medication Instructions Recorded Confirmed Benztropine Mesylate [Cogentin] 0.5 mg PO HS 10/28/17 11/08/21 FLUoxetine HCL [PROzac] 40 mg PO BID 10/28/17 11/08/21 Pantoprazole [Protonix] 40 mg PO DAILY 02/09/21 11/08/21 buPROPion XL [Wellbutrin XL] 150 mg PO DAILY 02/09/21 11/08/21 ARIPiprazole [Abilify] 15 mg PO DAILY 11/08/21 11/08/21 Acetaminophen Tab [Tylenol Tab] 1,000 mg PO Q6H PRN 11/08/21 11/08/21 Multivitamins, Thera [Multivitamin 1 tab PO DAILY 11/08/21 11/08/21 (formulary)] Previous Rx's Medication Instructions Recorded Naproxen [Naprosyn] 375 mg PO Q12HR PRN #20 tablet 11/07/21 Nirmatrelvir/Ritonavir [Paxlovid 1 each PO BID #10 each 01/15/22 300-100 mg Pack (Eua)] Mag Hydrox/Aluminum Hyd/Simeth 10 ml PO Q4-6H PRN #355 ml 12/15/22 [Mylanta Maximum Strength Liq] Ondansetron Odt [Zofran Odt] 4 mg PO Q8HR PRN #20 tab 12/15/22 Promethazine/Dextromethorphan 5 ml PO Q4-6H PRN #473 ml 12/15/22 [Promethazine-Dm 6.25-15 mg/5Ml] Allergies Allergy/AdvReac Type Severity Reaction Status Date / Time NSAIDS (Non-Steroidal Allergy Unknown Verified 09/15/23 20:52 Anti-Inflamma kiwi AdvReac Anaphylaxis Verified 09/15/23 20:52 Review of Systems ROS Statement: Those systems with pertinent positive or pertinent negative responses have been documented in the HPI. ROS Other: All systems not noted in ROS Statement are negative. Past Medical History Past Medical History: GERD/Reflux, Hypertension Additional Past Medical History / Comment(s): sinus infections, pericarditis 2016, low vitamin D, states no pneumonia,. sleep apnea History of Any Multi-Drug Resistant Organisms: MRSA Date of last positivie culture/infection: 2016 MDRO Source:: groin Past Surgical History: Bariatric Surgery, Cholecystectomy Additional Past Surgical History / Comment(s): gastric bypass Past Psychological History: Bipolar, Schizoaffective Disorder Smoking Status: Former smoker Past Alcohol Use History: Occasional Past Drug Use History: None Reported - Past Family History Mother Family Medical History: No Reported History Father Family Medical History: Myocardial Infarction ([place]) General Exam Limitations: no limitations General appearance: alert, in no apparent distress Head exam: Present: atraumatic, normocephalic, normal inspection Eye exam: Present: normal appearance, PERRL, EOMI. Absent: scleral icterus, conjunctival injection, periorbital swelling ENT exam: Present: normal exam, mucous membranes moist Neck exam: Present: normal inspection. Absent: tenderness, meningismus, lymphadenopathy Respiratory exam: Present: normal lung sounds bilaterally. Absent: respiratory distress, wheezes, rales, rhonchi, stridor Cardiovascular Exam: Present: regular rate, normal rhythm, normal heart sounds. Absent: systolic murmur, diastolic murmur, rubs, gallop, clicks GI/Abdominal exam: Present: soft, normal bowel sounds. Absent: distended, tenderness, guarding, rebound, rigid Extremities exam: Present: normal inspection, full ROM, normal capillary refill. Absent: tenderness, pedal edema, joint swelling, calf tenderness Back exam: Present: normal inspection Neurological exam: Present: alert, oriented X3, CN II-XII intact Psychiatric exam: Present: normal affect, normal mood Skin exam: Present: warm, dry, intact, normal color. Absent: rash Course Vital Signs 09/07/23 09/07/23 00:24 03:53 Temperature 98.3 F Pulse Rate 65 64 Respiratory 18 18 Rate Blood Pressure 139/76 122/60 O2 Sat by Pulse 100 97 Oximetry - Reevaluation(s) Reevaluation #1: Medical records reviewed Reevaluation #2: Patient symptoms improved Reevaluation #3: Patient informed of results questions answered Reevaluation #4: Was pt. sent in by a medical professional or institution (, SHADE, APPLICATION DEVELOPMENT TEAM LEAD, urgent care, hospital, or long term...) When possible be specific @ -no Did you speak to anyone other than the patient for history (EMS, parent, family, police, friend...)? What history was obtained from this source @ -no Did you review nursing and triage notes (agree or disagree)? Why? @ -agree Are old charts reviewed (outside hosp., previous admission, EMS record, old EKG, old radiological studies, urgent care reports/EKG's, long term records)? Report findings @ -yes Differential Diagnosis (chest pain, altered mental status, abdominal pain women, abdominal pain men, vaginal bleeding, weakness, fever, dyspnea, syncope, headache, dizziness, GI bleed, back pain, seizure, CVA, palpatations, mental health, musculoskeletal)? @ -prior EKG interpreted by me (3pts min.). @ -no X-rays interpreted by me (1pt min.). @ -no CT interpreted by me (1pt min.). @ -no U/S interpreted by me (1pt. min.). @ -no What testing was considered but not performed or refused? (CT, X-rays, U/S, labs)? Why? @ -none What meds were considered but not given or refused? Why? @ -none Did you discuss the management of the patient with other professionals (professionals i.e. SHADE [place], APPLICATION DEVELOPMENT TEAM LEAD, lab, RT, psych nurse, director social service, dairy quality assurance officer, teacher, code enforcement officer, pillowcase maker)? Give summary @ -no Was smoking cessation discussed for >3mins.? @ -no Was critical care preformed (if so, how long)? @ -no Were there social determinants of health that impacted care today? How? (Homelessness, low income, unemployed, alcoholism, drug addiction, transportation, low edu. Level, literacy, decrease access to med. care, [facility], rehab)? @ -none Was there de-escalation of care discussed even if they declined (Discuss DNR or withdrawal of care, Hospice)? DNR status @ -no What co-morbidities impacted this encounter? (DM, HTN, Smoking, COPD, CAD, Cancer, CVA, ARF, Chemo, Hep., AIDS, mental health diagnosis, sleep apnea, morbid obesity)? @ -none Was patient admitted / discharged? Hospital course, mention meds given and route, prescriptions, significant lab abnormalities, going to OR and other pertinent info. @ - 48 Female to the ER with abdominal pain abdominal pain nausea vomiting having some low blood labs today feels dehydrated, patient feels improved though traumatically here in the ER feels good for discharge home Discharge Undiagnosed new problem with uncertain prognosis? @ -no Drug Therapy requiring intensive monitoring for toxicity (Heparin, Nitro, Insulin, Cardizem)? @ -no Were any procedures done? @ -no Diagnosis/symptom? @ - Acute, or Chronic, or Acute on Chronic? @ -Acute Uncomplicated (without systemic symptoms) or Complicated (systemic symptoms)? @ -Complicated Side effects of treatment? @ -no Exacerbation, Progression, or Severe Exacerbation? @ -exacerbation Poses a threat to life or bodily function? How? (Chest pain, USA, [place], pneumonia, PE, COPD, DKA, ARF, appy, cholecystitis, CVA, Diverticulitis, Homicidal, Suicidal, threat to staff... and all critical care pts) @ -Yes with postoperative pain nausea vomiting dehydration Reevaluation #5: Differential Abdominal Pain Women: Appendicitis, Cholecystitis, diverticulosis, ischemic bowel, pancreatitis, hepatitis, UTI, gastroenteritis, AAA, incarcerated hernia, bowel obstruction, constipation, inflammatory bowel, hepatitis, peptic ulcer disease, splenic infarction, perforated viscus, vulvitis, ovarian torsion, PID, kidney stone, placenta abruption, this is not meant to be an all-inclusive list Medical Decision Making - Medical Decision Making 48 Female to the ER with abdominal pain abdominal pain nausea vomiting having some low blood labs today feels dehydrated, patient feels improved though traumatically here in the ER feels good for discharge home - Lab Data Result diagrams: 09/07/23 01:11 09/07/23 01:11 Lab Results 09/07/23 09/07/23 09/07/23 Range/Units 01:11 01:11 01:45 WBC 3.7 L (3.8-10.6) k/uL RBC 4.46 (3.80-5.40) m/uL Hgb 11.9 (11.4-16.0) gm/dL Hct 37.2 (34.0-46.0) % MCV 83.4 (80.0-100.0) fL MCH 26.7 (25.0-35.0) pg MCHC 32.0 (31.0-37.0) g/dL RDW 17.1 H (11.5-15.5) % Plt Count 213 (150-450) k/uL MPV 7.4 Neutrophils % 72 % Lymphocytes % 16 % Monocytes % 5 % Eosinophils % 5 % Basophils % 1 % Neutrophils # 2.6 (1.3-7.7) k/uL Lymphocytes # 0.6 L (1.0-4.8) k/uL Monocytes # 0.2 (0-1.0) k/uL Eosinophils # 0.2 (0-0.7) k/uL Basophils # 0.0 (0-0.2) k/uL Anisocytosis Slight Sodium 138 (137-145) mmol/L Potassium 4.0 (3.5-5.1) mmol/L Chloride 109 H (98-107) mmol/L Carbon Dioxide 25 (22-30) mmol/L Anion Gap 4 mmol/L BUN 13 (7-17) mg/dL Creatinine 0.62 (0.52-1.04) mg/dL Est GFR (CKD-EPI)AfAm >90 (>60 ml/min/1.73 sqM) Est GFR (CKD-EPI)NonAf >90 (>60 ml/min/1.73 sqM) Glucose 94 (74-99) mg/dL Calcium 8.8 (8.4-10.2) mg/dL Phosphorus 3.3 (2.5-4.5) mg/dL Magnesium 2.3 (1.6-2.3) mg/dL Total Bilirubin 0.5 (0.2-1.3) mg/dL AST 21 (14-36) U/L ALT 16 (4-34) U/L Alkaline Phosphatase 96 (38-126) U/L Total Protein 5.8 L (6.3-8.2) g/dL Albumin 3.4 L (3.5-5.0) g/dL Lipase 53 (23-300) U/L Urine Color Yellow Urine Appearance Cloudy H (Clear) Urine pH 6.0 (5.0-8.0) Ur Specific [place] 1.040 H (1.001-1.035) Urine Protein 1+ H (Negative) Urine Glucose (UA) Negative (Negative) Urine Ketones 2+ H (Negative) Urine Blood Negative (Negative) Urine Nitrite Negative (Negative) Urine Bilirubin Negative (Negative) Urine Urobilinogen 2.0 (<2.0) mg/dL Ur Leukocyte Esterase Trace H (Negative) Urine RBC 112 H (0-5) /hpf Urine WBC 1 (0-5) /hpf Ur Squamous Epith Cells 3 (0-4) /hpf Amorphous Sediment Occasional H (None) /hpf Urine Bacteria Rare H (None) /hpf Urine Mucus Many H (None) /hpf Urine Yeast (Budding) Few H (None) /hpf Disposition Clinical Impression: Dehydration, Nausea & vomiting Disposition: HOME SELF-CARE Condition: Good Instructions (If sedation given, give patient instructions): Acute Nausea and Vomiting (ED) Is patient prescribed a controlled substance at d/c from ED?: No Referrals: Scarlet Avila MD [Primary Care Provider] - 1-2 days Time of Disposition: 03:00
[2023-09-07 01:23] LABS: Anisocytosis Slight; Basophils % (A) 1 %; Eosinophils # (A) 0.2 k/uL (0-0.7); Eosinophils % (A) 5 %; HCT 37.2 % (34.0-46.0); HGB 11.9 gm/dL (11.4-16.0); Lymphocytes # (A) 0.6 k/uL (1.0-4.8); Lymphocytes % (A) 16 %; MCH 26.7 pg (25.0-35.0); MCV 83.4 fL (80.0-100.0); Mean Platelet Volume 7.4; Monocytes # (A) 0.2 k/uL (0-1.0); Monocytes % (A) 5 %; Neutrophils # (A) 2.6 k/uL (1.3-7.7); Neutrophils % (A) 72 %; Platelet Count 213 k/uL (150-450); RBC 4.46 m/uL (3.80-5.40); RDW 17.1 % (11.5-15.5); WBC 3.7 k/uL (3.8-10.6)
[2023-09-07 01:32] LABS: ALT 16 U/L (4-34); AST 21 U/L (14-36); African American GFR (CKD) >90 (>60 ml/min/1.73 sqM); Albumin 3.4 g/dL (3.5-5.0); Alkaline Phosphatase 96 U/L (38-126); Anion Gap 4 mmol/L; Blood Urea Nitrogen 13 mg/dL (7-17); Calcium 8.8 mg/dL (8.4-10.2); Carbon Dioxide 25 mmol/L (22-30); Chloride 109 mmol/L (98-107); Glucose 94 mg/dL (74-99); Lipase 53 U/L (23-300); Magnesium 2.3 mg/dL (1.6-2.3); Non-African American GFR(CKD) >90 (>60 ml/min/1.73 sqM); Phosphorus 3.3 mg/dL (2.5-4.5); Sodium 138 mmol/L (137-145); Total Bilirubin 0.5 mg/dL (0.2-1.3); Total Protein 5.8 g/dL (6.3-8.2)
[2023-09-07] MEDS: SODIUM CHLORIDE 0.9% 1,000 ML IV STA (01:38)
[2023-09-07] MEDS: PANTOPRAZOLE 40 MG/10 ML VIAL IVP STA (01:43)
[2023-09-07] MEDS: PROCHLORPERAZINE INJ 10 MG/2 ML VIAL IVP STA (01:43)
[2023-09-07 02:50] LABS: Amorphous Sediment,Urine Occasional /hpf; Appearance,Urine Cloudy (Clear); Bacteria,Urine Rare /hpf; Bilirubin,Urine Negative (Negative); Blood,Urine Negative (Negative); Budding Yeast,Urine Few /hpf; Color,Urine Yellow; Glucose,Urine (UA) Negative (Negative); Ketones,Urine 2+ (Negative); Leukocyte Esterase,Urine Trace (Negative); Mucus,Urine Many /hpf; Nitrite,Urine Negative (Negative); Protein,Urine 1+ (Negative); RBC,Urine 112 /hpf (0-5); Squamous Epithelial Cell,Urine 3 /hpf (0-4); WBC,Urine 1 /hpf (0-5)
[2023-09-07 03:58] VITALS: BP 122/60; PULSE 64
== END 2023-09-07 03:58 | disposition home or self-care (01) ==
LOC: EC 00:14
DX: E86.0 Dehydration (principal); R11.2 Nausea with vomiting, unspecified; Z91.018 Allergy to other foods; Z88.6 Allergy status to analgesic agent; Z87.891 Personal history of nicotine dependence
CPT/HCPCS: 99284 ×2; 96374 ×2; 96375 ×2; 96361 ×3; 36415; 80053; 83690; 83735; 84100; 85025; 81001; J0780; C9113

== ENCOUNTER 2023-09-15 20:40 | Emergency (ER) | payer OTHER ==
[2023-09-15 20:52] VITALS: RESP 18
--- NOTE | 2023-09-15 21:24 | ED ---
General Adult HPI - General Chief complaint: Dizziness Stated complaint: Dizziness Time Seen by Provider: 09/15/23 21:06 Source: patient Mode of arrival: ambulatory Limitations: no limitations - History of Present Illness Initial comments: Dictation was produced using [employer] dictation software. please excuse any grammatical, word or spelling errors. Chief Complaint: 48-year-old female presents with lightheadedness. History of Present Illness: Patient 48-year-old female presents emergency department lightheadedness states she was driving home from work when all of a sudden she felt lightheaded. States that recently today she noticed that there was some blood in her stool. Patient currently actively dealing with a hemorrhoid for approximately 3 to 4 months. Patient does not want me to do a rectal exam. Denies any vomiting but does report some nausea. Denies any abdominal pain. No fever or constitutional symptoms. The ROS documented in this emergency department record has been reviewed and confirmed by me. Those systems with pertinent positive or negative responses have been documented in the HPI. All other systems are other negative and/or noncontributory. - Related Data Home Medications Medication Instructions Recorded Confirmed Benztropine Mesylate [Cogentin] 0.5 mg PO HS 10/28/17 11/08/21 FLUoxetine HCL [PROzac] 40 mg PO BID 10/28/17 11/08/21 Pantoprazole [Protonix] 40 mg PO DAILY 02/09/21 11/08/21 buPROPion XL [Wellbutrin XL] 150 mg PO DAILY 02/09/21 11/08/21 ARIPiprazole [Abilify] 15 mg PO DAILY 11/08/21 11/08/21 Acetaminophen Tab [Tylenol Tab] 1,000 mg PO Q6H PRN 11/08/21 11/08/21 Multivitamins, Thera [Multivitamin 1 tab PO DAILY 11/08/21 11/08/21 (formulary)] Previous Rx's Medication Instructions Recorded Naproxen [Naprosyn] 375 mg PO Q12HR PRN #20 tablet 11/07/21 Nirmatrelvir/Ritonavir [Paxlovid 1 each PO BID #10 each 01/15/22 300-100 mg Pack (Eua)] Mag Hydrox/Aluminum Hyd/Simeth 10 ml PO Q4-6H PRN #355 ml 12/15/22 [Mylanta Maximum Strength Liq] Ondansetron Odt [Zofran Odt] 4 mg PO Q8HR PRN #20 tab 12/15/22 Promethazine/Dextromethorphan 5 ml PO Q4-6H PRN #473 ml 12/15/22 [Promethazine-Dm 6.25-15 mg/5Ml] Allergies Allergy/AdvReac Type Severity Reaction Status Date / Time NSAIDS (Non-Steroidal Allergy Unknown Verified 09/15/23 20:52 Anti-Inflamma kiwi AdvReac Anaphylaxis Verified 09/15/23 20:52 Review of Systems ROS Statement: Those systems with pertinent positive or pertinent negative responses have been documented in the HPI. ROS Other: All systems not noted in ROS Statement are negative. Past Medical History Past Medical History: GERD/Reflux, Hypertension Additional Past Medical History / Comment(s): sinus infections, pericarditis 2016, low vitamin D, states no pneumonia,. sleep apnea History of Any Multi-Drug Resistant Organisms: MRSA Date of last positivie culture/infection: 2016 MDRO Source:: groin Past Surgical History: Bariatric Surgery, Cholecystectomy Additional Past Surgical History / Comment(s): gastric bypass Past Psychological History: Bipolar, Schizoaffective Disorder Smoking Status: Former smoker Past Alcohol Use History: Occasional Past Drug Use History: None Reported - Past Family History Mother Family Medical History: No Reported History Father Family Medical History: Myocardial Infarction ([place]) General Exam - General Exam Comments Initial Comments: PHYSICAL EXAM: General Impression: Alert and oriented x3, not in acute distress HEENT: Normocephalic atraumatic, extra-ocular movements intact, pupils equal and reactive to light bilaterally, mucous membranes moist. Cardiovascular: Heart regular rate and rhythm Chest: Able to complete full sentences, no retractions, no tachypnea Abdomen: abdomen soft, non-tender, non-distended, no organomegaly Musculoskeletal: Pulses present and equal in all extremities, no peripheral edema Motor: no focal deficits noted Neurological: CN II-XII grossly intact, no focal motor or sensory deficits noted Skin: Intact with no visualized rashes Psych: Normal affect and mood Limitations: no limitations Course Vital Signs 09/15/23 20:48 Temperature 98.2 F Pulse Rate 78 Respiratory 18 Rate Blood Pressure 122/80 O2 Sat by Pulse 100 Oximetry Medical Decision Making - Medical Decision Making Was pt. sent in by a medical professional or institution (, PA, AUTOMOTIVE BUYER, urgent care, hospital, or snf...) When possible be specific @ -No Did you speak to anyone other than the patient for history (EMS, parent, family, police, friend...)? What history was obtained from this source @ -No Did you review nursing and triage notes (agree or disagree)? Why? @ -I reviewed and agree with nursing and triage notes Were old charts reviewed (outside hosp., previous admission, EMS record, old EKG , old radiological studies, urgent care reports/EKG's, snf records)? Report findings @ -No old charts were reviewed Differential Diagnosis (chest pain, altered mental status, abdominal pain women, abdominal pain men, vaginal bleeding, musculoskeletal, weakness, fever, dyspnea, syncope, headache, dizziness, GI bleed, back pain, seizure, CVA, palpatations, mental health)? @ -Differential Dizziness: Benign paroxysmal positional Vertigo, Menieres disease, otitis media, acoustic neuroma, vertebrobasilar insufficiency, cerebellar stroke, encephalitis, hypovolemic, arrhythmia, coronary artery syndrome, anemia, this is not meant to be an all-inclusive list EKG interpreted by me (3pts min.). @ -None done X-rays interpreted by me (1pt min.). @ -None done CT interpreted by me (1pt min.). @ -None done U/S interpreted by me (1pt. min.). @ -None done What testing was considered but not performed or refused? (CT, X-rays, U/S, labs)? Why? @ -None What meds were considered but not given or refused? Why? @ -None Was smoking cessation discussed for >3mins.? @ -No Were there social determinants of health that impacted care today? How? (Homelessness, low income, unemployed, alcoholism, drug addiction, transportation, low edu. Level, literacy, decrease access to med. care, assisted, rehab)? @ -No Was there de-escalation of care discussed even if they declined (Discuss DNR or withdrawal of care, Hospice)? DNR status @ -No What co-morbidities impacted this encounter? (DM, HTN, Smoking, COPD, CAD, Cancer, CVA, ARF, Chemo, Hep., AIDS, mental health diagnosis, sleep apnea, morbid obesity)? @ -None Was patient admitted / discharged? Hospital course, mention meds given and route, prescriptions, significant lab abnormalities, going to OR and other pertinent info. @ -48-year-old well-appearing female presents to the ER for dizziness. Vital signs stable. Physical examination is benign. Patient refusing rectal exam. Patient states that she would like her vitamins checked. Laboratory evaluation unremarkable. Patient given IV fluids and Zofran with resolution of symptoms. Patient reevaluated at bedside at 11:00 PM found to be in stable condition. Patient discharged. Did you discuss the management of the patient with other professionals (professionals i.e. , PA, AUTOMOTIVE BUYER, lab, RT, psych nurse, social welfare administrator, carbon brushes assembler, teacher, chief contract officer, piano case and bench assembler)? Give summary @ -No Was critical care preformed (if so, how long)? @ -No Undiagnosed new problem with uncertain prognosis? @ -No Drug Therapy requiring intensive monitoring for toxicity (Heparin, Nitro, Insuli n, Cardizem)? @ -No Were any procedures done? @ -No Diagnosis/symptom? Acute, or Chronic, or Acute on Chronic? Uncomplicated (without systemic symptoms) or Complicated (systemic symptoms)? @ -Lightheadedness Side effects of treatment? @ -No Exacerbation, Progression, or Severe Exacerbation? @ -No Poses a threat to life or bodily function? How? (Chest pain, [place], [place], pneumonia, PE, COPD, DKA, ARF, appy, cholecystitis, CVA, Diverticulitis, Homicidal, Suicidal, threat to staff... and all critical care pts) @ -No - Lab Data Result diagrams: 09/15/23 21:43 09/15/23 21:43 Lab Results 09/15/23 09/15/23 Range/Units 21:43 21:43 WBC 5.7 (3.8-10.6) k/uL RBC 4.74 (3.80-5.40) m/uL Hgb 12.6 (11.4-16.0) gm/dL Hct 39.8 (34.0-46.0) % MCV 84.0 (80.0-100.0) fL MCH 26.7 (25.0-35.0) pg MCHC 31.8 (31.0-37.0) g/dL RDW 17.5 H (11.5-15.5) % Plt Count 248 (150-450) k/uL MPV 7.8 Neutrophils % 74 % Lymphocytes % 15 % Monocytes % 5 % Eosinophils % 4 % Basophils % 1 % Neutrophils # 4.3 (1.3-7.7) k/uL Lymphocytes # 0.8 L (1.0-4.8) k/uL Monocytes # 0.3 (0-1.0) k/uL Eosinophils # 0.2 (0-0.7) k/uL Basophils # 0.0 (0-0.2) k/uL Anisocytosis Slight Sodium 136 L (137-145) mmol/L Potassium 3.7 (3.5-5.1) mmol/L Chloride 108 H (98-107) mmol/L Carbon Dioxide 22 (22-30) mmol/L Anion Gap 6 mmol/L BUN 15 (7-17) mg/dL Creatinine 0.62 (0.52-1.04) mg/dL Est GFR (CKD-EPI)AfAm >90 (>60 ml/min/1.73 sqM) Est GFR (CKD-EPI)NonAf >90 (>60 ml/min/1.73 sqM) Glucose 87 (74-99) mg/dL Calcium 9.0 (8.4-10.2) mg/dL Disposition Clinical Impression: Lightheaded Disposition: HOME SELF-CARE Condition: Good Instructions (If sedation given, give patient instructions): Dizziness (ED) Is patient prescribed a controlled substance at d/c from ED?: No Referrals: Scarlet Avila MD [Primary Care Provider] - 1-2 days Time of Disposition: 22:59
[2023-09-15] MEDS: ONDANSETRON 4 MG/2 ML VIAL IVP STA (22:03)
[2023-09-15] MEDS: SODIUM CHLORIDE 0.9% 1,000 ML IV STA (22:03)
[2023-09-15 22:05] LABS: Anisocytosis Slight; Basophils % (A) 1 %; Eosinophils # (A) 0.2 k/uL (0-0.7); Eosinophils % (A) 4 %; HCT 39.8 % (34.0-46.0); HGB 12.6 gm/dL (11.4-16.0); Lymphocytes # (A) 0.8 k/uL (1.0-4.8); Lymphocytes % (A) 15 %; MCH 26.7 pg (25.0-35.0); MCHC 31.8 g/dL (31.0-37.0); Mean Platelet Volume 7.8; Monocytes # (A) 0.3 k/uL (0-1.0); Monocytes % (A) 5 %; Neutrophils # (A) 4.3 k/uL (1.3-7.7); Neutrophils % (A) 74 %; Platelet Count 248 k/uL (150-450); RBC 4.74 m/uL (3.80-5.40); RDW 17.5 % (11.5-15.5); WBC 5.7 k/uL (3.8-10.6)
[2023-09-15 22:07] LABS: African American GFR (CKD) >90 (>60 ml/min/1.73 sqM); Anion Gap 6 mmol/L; Blood Urea Nitrogen 15 mg/dL (7-17); Carbon Dioxide 22 mmol/L (22-30); Chloride 108 mmol/L (98-107); Glucose 87 mg/dL (74-99); Non-African American GFR(CKD) >90 (>60 ml/min/1.73 sqM); Potassium 3.7 mmol/L (3.5-5.1); Sodium 136 mmol/L (137-145)
[2023-09-15 23:11] VITALS: BP 133/68; PULSE 64; TEMP 98.3
== END 2023-09-15 23:11 | disposition home or self-care (01) ==
LOC: EC 20:40
DX: R42 Dizziness and giddiness (principal); Z91.018 Allergy to other foods; Z88.6 Allergy status to analgesic agent; Z87.891 Personal history of nicotine dependence
CPT/HCPCS: 36415; 80048; 85025; 99284; 96374; 96361; J2405

== ENCOUNTER 2023-11-26 23:38 | Emergency (ER) | payer OTHER ==
[2023-11-27 00:19] LABS: Anisocytosis Slight; Basophils % (A) 0 %; Eosinophils # (A) 0.3 k/uL (0-0.7); Eosinophils % (A) 4 %; HCT 36.9 % (34.0-46.0); HGB 12.1 gm/dL (11.4-16.0); Lymphocytes # (A) 0.8 k/uL (1.0-4.8); Lymphocytes % (A) 13 %; MCH 29.4 pg (25.0-35.0); MCHC 32.7 g/dL (31.0-37.0); MCV 89.7 fL (80.0-100.0); Mean Platelet Volume 7.6; Monocytes # (A) 0.2 k/uL (0-1.0); Monocytes % (A) 4 %; Neutrophils # (A) 4.9 k/uL (1.3-7.7); Neutrophils % (A) 77 %; Platelet Count 291 k/uL (150-450); RBC 4.11 m/uL (3.80-5.40); RDW 16.5 % (11.5-15.5); WBC 6.4 k/uL (3.8-10.6)
[2023-11-27 01:22] LABS: Potassium 3.7 mmol/L (3.5-5.1)
[2023-11-27 01:25] LABS: ALT 16 U/L (4-34); AST 19 U/L (14-36); African American GFR (CKD) >90 (>60 ml/min/1.73 sqM); Albumin 3.9 g/dL (3.5-5.0); Alkaline Phosphatase 96 U/L (38-126); Anion Gap 4 mmol/L; Blood Urea Nitrogen 15 mg/dL (7-17); C Reactive Protein 0.8 mg/dL (<1.0); Calcium 9.2 mg/dL (8.4-10.2); Carbon Dioxide 23 mmol/L (22-30); Chloride 107 mmol/L (98-107); Glucose 92 mg/dL (74-99); Non-African American GFR(CKD) >90 (>60 ml/min/1.73 sqM); Sodium 134 mmol/L (137-145); Total Bilirubin 0.4 mg/dL (0.2-1.3); Total Protein 6.5 g/dL (6.3-8.2)
--- NOTE | 2023-11-27 02:27 | CT ---
EXAM: CT Abdomen Without Intravenous Contrast CLINICAL HISTORY: ITS.REASON CT Reason: ABD Pain TECHNIQUE: Axial computed tomography images of the abdomen without intravenous contrast. CTDI is 21.5 mGy and DLP is 1242.4 mGy-cm. This CT exam was performed using one or more of the following dose reduction techniques: automated exposure control, adjustment of the mA and/or kV according to patient size, and/or use of iterative reconstruction technique. COMPARISON: No relevant prior studies available. FINDINGS: Lung bases: Unremarkable. No mass. No consolidation. Liver: Unremarkable. Gallbladder and bile ducts: Unremarkable. No calcified stones. No ductal dilation. Pancreas: Unremarkable. No ductal dilation. Spleen: Unremarkable. No splenomegaly. Adrenals: Unremarkable. No mass. Kidneys and ureters: Unremarkable. No hydronephrosis, nephrolithiasis, or obstructive uropathy. Stomach and bowel: Monica-en-Y gastric bypass. No obstruction of the jejunojejunostomy. No mucosal thickening. Intraperitoneal space: Unremarkable. No free air. No significant fluid collection. Bones/joints: Degenerative changes of the spine. No acute fracture. No dislocation. Soft tissues: Unremarkable. Vasculature: Unremarkable. No abdominal aortic aneurysm. Lymph nodes: Unremarkable. No enlarged lymph nodes. IMPRESSION: 1. No hydronephrosis, nephrolithiasis, or obstructive uropathy. 2. Monica-en-Y gastric bypass. No obstruction of the jejunojejunostomy.
[2023-11-27] MEDS: MORPHINE SULFATE 4 MG/ML SYRINGE IV STA (02:31)
[2023-11-27] MEDS: SODIUM CHLORIDE 0.9% 500 ML 500 ML IV STA (02:34)
[2023-11-27 02:50] VITALS: RESP 18
--- NOTE | 2023-11-27 03:02 | ED ---
Abdominal Pain HPI - General Chief Complaint: Abdominal Pain Stated Complaint: Abd pain Time Seen by Provider: 11/27/23 00:50 Source: patient Mode of arrival: ambulatory Limitations: no limitations - History of Present Illness Initial Comments: This patient is a 48-year-old woman who presents to have evaluation of left lower quadrant pain. The patient states she has been having episodes of pain like this going back a number of weeks. The patient states that she had previous bariatric surgery and that she told her surgeon and even had an endoscopy that she reports was unremarkable. 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 Patient also states that she had been doing a lot of bending for work and this may have contributed. MD Complaint: abdominal pain -: week(s) Location: LLQ Radiation: none Migration to: periumbilical Severity: moderate Quality: aching, sharp Consistency: colicky Improves With: nothing Worsens With: movement Associated Symptoms: nausea - Related Data Home Medications Medication Instructions Recorded Confirmed Benztropine Mesylate [Cogentin] 0.5 mg PO HS 10/28/17 11/08/21 FLUoxetine HCL [PROzac] 40 mg PO BID 10/28/17 11/08/21 Pantoprazole [Protonix] 40 mg PO DAILY 02/09/21 11/08/21 buPROPion XL [Wellbutrin XL] 150 mg PO DAILY 02/09/21 11/08/21 ARIPiprazole [Abilify] 15 mg PO DAILY 11/08/21 11/08/21 Acetaminophen Tab [Tylenol Tab] 1,000 mg PO Q6H PRN 11/08/21 11/08/21 Multivitamins, Thera [Multivitamin 1 tab PO DAILY 11/08/21 11/08/21 (formulary)] Previous Rx's Medication Instructions Recorded Naproxen [Naprosyn] 375 mg PO Q12HR PRN #20 tablet 11/07/21 Nirmatrelvir/Ritonavir [Paxlovid 1 each PO BID #10 each 01/15/22 300-100 mg Pack (Eua)] Mag Hydrox/Aluminum Hyd/Simeth 10 ml PO Q4-6H PRN #355 ml 12/15/22 [Mylanta Maximum Strength Liq] Ondansetron Odt [Zofran Odt] 4 mg PO Q8HR PRN #20 tab 12/15/22 Promethazine/Dextromethorphan 5 ml PO Q4-6H PRN #473 ml 12/15/22 [Promethazine-Dm 6.25-15 mg/5Ml] Allergies Allergy/AdvReac Type Severity Reaction Status Date / Time NSAIDS (Non-Steroidal Allergy Unknown Verified 11/26/23 23:48 Anti-Inflamma kiwi AdvReac Anaphylaxis Verified 11/26/23 23:48 Review of Systems ROS Statement: Those systems with pertinent positive or pertinent negative responses have been documented in the HPI. ROS Other: All systems not noted in ROS Statement are negative. Past Medical History Past Medical History: GERD/Reflux, Hypertension Additional Past Medical History / Comment(s): sinus infections, pericarditis 2016, low vitamin D, states no pneumonia,. sleep apnea, low folic acid, IBS History of Any Multi-Drug Resistant Organisms: MRSA Date of last positivie culture/infection: 2016 MDRO Source:: groin Past Surgical History: Bariatric Surgery, Cholecystectomy Additional Past Surgical History / Comment(s): gastric bypass Past Psychological History: Bipolar, Schizoaffective Disorder Smoking Status: Former smoker Past Alcohol Use History: Occasional Past Drug Use History: None Reported - Past Family History Mother Family Medical History: No Reported History Father Family Medical History: Myocardial Infarction ([place]) General Exam Limitations: no limitations General appearance: alert, in no apparent distress Head exam: Present: atraumatic, normocephalic Eye exam: Present: normal appearance. Absent: scleral icterus, conjunctival injection Neck exam: Present: normal inspection Respiratory exam: Present: normal lung sounds bilaterally. Absent: respiratory distress, wheezes, rales, rhonchi, stridor, accessory muscle use Cardiovascular Exam: Present: regular rate, normal rhythm, normal heart sounds. Absent: systolic murmur, diastolic murmur, rubs, gallop GI/Abdominal exam: Present: soft. Absent: distended, tenderness, guarding, rebound, rigid, mass, pulsatile mass, hernia Extremities exam: Present: normal inspection, normal capillary refill. Absent: pedal edema, calf tenderness Back exam: Present: normal inspection. Absent: CVA tenderness (R), CVA tenderness (L) Neurological exam: Present: alert Skin exam: Present: warm, dry, intact, normal color. Absent: rash Course Vital Signs 11/26/23 11/27/23 11/27/23 23:48 02:20 04:13 Temperature 98 F 98.1 F Pulse Rate 70 81 71 Respiratory 20 18 18 Rate Blood Pressure 131/69 135/76 129/64 O2 Sat by Pulse 99 97 98 Oximetry Medical Decision Making - Medical Decision Making Was pt. sent in by a medical professional or institution (, PA, FURNITURE MECHANIC, urgent care, hospital, or [facility]...) When possible be specific @ -[No] Did you speak to anyone other than the patient for history (EMS, parent, family, police, friend...)? What history was obtained from this source @ -[No] Did you review nursing and triage notes (agree or disagree)? Why? @ -[I reviewed and agree with nursing and triage notes] Were old charts reviewed (outside hosp., previous admission, EMS record, old EKG, old radiological studies, urgent care reports/EKG's, [facility] records)? Report findings @ -[No old charts were reviewed] Differential Diagnosis (chest pain, altered mental status, abdominal pain women, abdominal pain men, vaginal bleeding, weakness, fever, dyspnea, syncope, headache, dizziness, GI bleed, back pain, seizure, CVA, palpatations, mental health, musculoskeletal)? @ -[Differential Abdominal Pain Women: Appendicitis, Cholecystitis, diverticulosis, ischemic bowel, pancreatitis, hepatitis, UTI, gastroenteritis, AAA, incarcerated hernia, bowel obstruction, constipation, inflammatory bowel, hepatitis, peptic ulcer disease, splenic infarction, perforated viscus, vulvitis, ovarian torsion, PID, kidney stone, placenta abruption, this is not meant to be an all-inclusive list EKG interpreted by me (3pts min.). @ -[As above] X-rays interpreted by me (1pt min.). @ -[None done] CT interpreted by me (1pt min.). @ -[None done] U/S interpreted by me (1pt. min.). @ -[None done] What testing was considered but not performed or refused? (CT, X-rays, U/S, labs)? Why? @ -[None] What meds were considered but not given or refused? Why? @ -[None] Did you discuss the management of the patient with other professionals (pro fessionals i.e. , PA, FURNITURE MECHANIC, lab, RT, psych nurse, web content & social media manager, retail department supervisor, teacher, forestry technical officer, casey saw operator)? Give summary @ -[No] Was smoking cessation discussed for >3mins.? @ -[No] Was critical care preformed (if so, how long)? @ -[No] Were there social determinants of health that impacted care today? How? (Homelessness, low income, unemployed, alcoholism, drug addiction, transportation, low edu. Level, literacy, decrease access to med. care, correction, rehab)? @ -[No] Was there de-escalation of care discussed even if they declined (Discuss DNR or withdrawal of care, Hospice)? DNR status @ -[No] What co-morbidities impacted this encounter? (DM, HTN, Smoking, COPD, CAD, Cancer, CVA, ARF, Chemo, Hep., AIDS, mental health diagnosis, sleep apnea, morbid obesity)? @ -[None] Was patient admitted / discharged? Hospital course, mention meds given and route, prescriptions, significant lab abnormalities, going to OR and other pertinent info. @ -[Patient is 48-year-old woman having intermittent left lower quadrant abdominal pains. The exam not indicative of acute surgical condition. The patient has had recent imaging and will have further workup as outpatient. Discussed appropriate further care and return parameters Undiagnosed new problem with uncertain prognosis? @ -[No] Drug Therapy requiring intensive monitoring for toxicity (Heparin, Nitro, Insulin, Cardizem)? @ -[No] Were any procedures done? @ -[No] Diagnosis/symptom? @ -Acute abdominal pain Acute, or Chronic, or Acute on Chronic? @ -[Acute Uncomplicated (without systemic symptoms) or Complicated (systemic symptoms)? @ -[Uncomplicated Side effects of treatment? @ -[No] Exacerbation, Progression, or Severe Exacerbation? @ -[No] Poses a threat to life or bodily function? How? (Chest pain, [place], [place], pneumonia, PE, COPD, DKA, ARF, appy, cholecystitis, CVA, Diverticulitis, Homicidal, Suicidal, threat to staff... and all critical care pts) @ -[No] - Lab Data Result diagrams: 11/27/23 00:08 11/27/23 00:08 Lab Results 11/27/23 11/27/23 Range/Units 00:08 00:08 WBC 6.4 (3.8-10.6) k/uL RBC 4.11 (3.80-5.40) m/uL Hgb 12.1 (11.4-16.0) gm/dL Hct 36.9 (34.0-46.0) % MCV 89.7 (80.0-100.0) fL MCH 29.4 (25.0-35.0) pg MCHC 32.7 (31.0-37.0) g/dL RDW 16.5 H (11.5-15.5) % Plt Count 291 (150-450) k/uL MPV 7.6 Neutrophils % 77 % Lymphocytes % 13 % Monocytes % 4 % Eosinophils % 4 % Basophils % 0 % Neutrophils # 4.9 (1.3-7.7) k/uL Lymphocytes # 0.8 L (1.0-4.8) k/uL Monocytes # 0.2 (0-1.0) k/uL Eosinophils # 0.3 (0-0.7) k/uL Basophils # 0.0 (0-0.2) k/uL Anisocytosis Slight Sodium 134 L (137-145) mmol/L Potassium 3.7 (3.5-5.1) mmol/L Chloride 107 (98-107) mmol/L Carbon Dioxide 23 (22-30) mmol/L Anion Gap 4 mmol/L BUN 15 (7-17) mg/dL Creatinine 0.76 (0.52-1.04) mg/dL Est GFR (CKD-EPI)AfAm >90 (>60 ml/min/1.73 sqM) Est GFR (CKD-EPI)NonAf >90 (>60 ml/min/1.73 sqM) Glucose 92 (74-99) mg/dL Calcium 9.2 (8.4-10.2) mg/dL Total Bilirubin 0.4 (0.2-1.3) mg/dL AST 19 (14-36) U/L ALT 16 (4-34) U/L Alkaline Phosphatase 96 (38-126) U/L C-Reactive Protein 0.8 (<1.0) mg/dL Total Protein 6.5 (6.3-8.2) g/dL Albumin 3.9 (3.5-5.0) g/dL Disposition Clinical Impression: Abdominal pain Disposition: HOME SELF-CARE Condition: Good Instructions (If sedation given, give patient instructions): Abdominal Pain (ED) Is patient prescribed a controlled substance at d/c from ED?: No Referrals: Garry Palma DO [Primary Care Provider] - 1-2 days
[2023-11-27] MEDS: ONDANSETRON 4 MG/2 ML VIAL IVP STA (04:09)
[2023-11-27 04:15] VITALS: BP 129/64; PULSE 71; TEMP 98.1
== END 2023-11-27 04:13 | disposition home or self-care (01) ==
LOC: EC 23:38
DX: R10.32 Left lower quadrant pain (principal); Z88.6 Allergy status to analgesic agent; Z91.018 Allergy to other foods; Z87.891 Personal history of nicotine dependence
CPT/HCPCS: 36415; 80053; 85025; 86140; 74150; 99284; 96374; 96375; 96361; J2270; J2405